=== PATIENT | female | born 1945 | race Caucasian/White ===

== ENCOUNTER 2021-12-03 08:52 | Inpatient (IN) ==
--- NOTE | 2021-12-03 09:01 | Emergency Department Note ---
Lower Extremity Injury HPI General Chief Complaint: Extremity Injury, Lower Stated Complaint: hip pain Time Seen by Provider: 12/03/21 09:01 Source: patient, family ([id number]) and EMS Mode of arrival: EMS Limitations: physical limitation History of Present Illness HPI Narrative: Narrative: 76-year-old female presents emerged department because of a palpable mass in the medial aspect of her proximal thigh on the right side 6 days after having a right total hip surgery. Patient states that this is new. Patient states she had x-ray of her hip approximately 5 days ago and it was unremarkable. Patient rates her pain is a 10 on a 0-to-10 scale. States she received some fentanyl intranasally in the ambulance on the way here and declines any further analgesics at this time. States the pain is constant. Better with opiates. No associated numbness or tingling in the foot. No referred pain to the lower extr emity. Primarily a dull pain. Associated with a mass in the medial aspect of her proximal thigh. MD complaint: hip injury Onset (ago): hour(s) Injury: Right: hip Type of Injury: unknown Place: home Severity: severe Severity scale (1-10): 10 Improves with: nothing Worsens with: movement Context: walking Associated symptoms: Reports swelling Related Data Home Medications Medication Instructions Recorded Confirmed fluoxetine 10 mg tablet 20 mg PO DAILY tab 01/28/19 12/03/21 omega-3 fatty acids 1,000 mg 1,000 mg PO DAILY 01/28/19 12/03/21 capsule (Fish Oil Concentrate) dorzolamide 22.3 mg-timolol 6.8 1 drp OPHTHALMIC (EYE) BID 01/15/21 12/03/21 mg/mL eye drops latanoprost 0.005 % eye drops 1 drp OPHTHALMIC (EYE) HS ml 01/15/21 12/03/21 aspirin 325 mg tablet 81 mg PO Q48H 11/20/21 12/03/21 cholecalciferol (vitamin D3) 50 100 mcg PO DAILY 11/20/21 12/03/21 mcg (2,000 unit) tablet (Vitamin D3) cyanocobalamin (vitamin B-12) 1,000 mcg PO DAILY 11/20/21 12/03/21 1,000 mcg tablet (Vitamin B-12) melatonin 5 mg tablet 15 mg PO HS 11/20/21 12/03/21 zinc sulfate 50 mg zinc (220 mg) 50 mg PO DAILY 11/20/21 12/03/21 tablet Previous Rx's Medication Instructions Recorded hydrocodone 10 mg-acetaminophen 1 - 2 tab PO Q4-6HP PRN #60 tab 11/28/21 325 mg tablet aspirin 81 mg tablet,delayed 81 mg PO BID #60 tab 12/03/21 release (Ecotrin Low Strength) docusate sodium 100 mg capsule 100 mg PO BID #60 cap 12/03/21 hydrocodone 10 mg-acetaminophen 1 - 2 tab PO Q4HP PRN #75 tab 12/03/21 325 mg tablet Allergies Allergy/AdvReac Type Severity Reaction Status Date / Time No Known Drug Allergies Allergy Verified 12/03/21 08:57 Review of Systems ROS ROS Narrative: Narrative: Constitutional: Denies fever Eyes: Reports other (Wears glasses); Denies eye pain ENT ED: Reports rhinorrhea (Chronic); Denies throat pain Cardiovascular: Denies chest pain Respiratory: Denies shortness of breath Gastrointestinal: Reports constipation; Denies abdominal pain Genitourinary: Denies dysuria Musculoskeletal: Denies back pain Integumentary: Denies rash Neurological: Denies headache Hematological/Lymphatic: Reports other (Bruising at the right hip surgical site.) [facility] Narrative Patient History Narrative: Narrative: Medical/Surgical/Family History All Active Problems Post-operative pain (Acute) Hip fracture requiring operative repair (Acute) Chronic kidney disease (CKD) stage G3a/A1, moderately decreased glomerular filtration rate (GFR) between 45-59 mL/min/1.73 square meter and albuminuria creatinine ratio less than 30 mg/g (Chronic) Left wrist pain (Chronic) Blurring of visual image (Chronic) Insomnia (Chronic) Increased frequency of urination (Chronic) Pain of right hip joint (Chronic) Malaise (Chronic) Loss of teeth due to extraction (Chronic) Osteoporosis (Chronic) Fibrosis of lung (Chronic) Depression (Chronic) Fatigue (Chronic) SOB (shortness of breath) (Chronic) Irritability (Chronic) Arthritis of hand (Chronic) Medical History Arthritis of hand began 30 years ago Blurring of visual image Depression Fatigue 01/2016 Fibrosis of lung Gallbladder problem removed History of tobacco use Increased frequency of urination Insomnia Irritability Left wrist pain Loss of teeth due to extraction Malaise Osteoporosis Pain of right hip joint SOB (shortness of breath) Surgical History H/O total hysterectomy with bilateral salpingo-oophorectomy (BSO) at age 38 History of cholecystectomy at age 53 History of hernia repair History of herniorrhaphy at age 5 History of total hysterectomy Family History Sister Breast cancer Diabetes Grandmother Breast cancer Paternal Father Diabetes Social History Smoking Status: Former smoker Alcohol Intake Frequency: holiday/special occasion only Substance Use: does not use Exam Narrative Narrative: Narrative: General Limitations: physical limitation General appearance: Present alert and in distress Head Head: Present atraumatic and normocephalic Eye Eye: Present normal appearance and EOMI Neck Neck: Present normal inspection and trachea midline Respiratory Respiratory: Present normal lung sounds bilaterally; Absent respiratory distress Cardiovascular Cardiovascular: Present regular rate and normal rhythm Adbominal Abdominal: Present soft; Absent tenderness Extremities Extremities: Present other (Right medial proximal thigh with hard mass palpable that was tender. Bruising laterally consistent with the surgery.) Neurological Neurological: Present alert and oriented X3 Psychiatric Psychiatric: Present normal affect and normal mood Skin Skin: Present warm (WNL) and dry Course Vital Signs Vital signs: Vital Signs Pulse Rate 88 12/03/21 08:53 Respiratory Rate 15 12/03/21 08:53 Blood Pressure 172/88 12/03/21 08:53 Pulse Oximetry (%) 99 12/03/21 08:53 Temperature 96.4 F L 12/03/21 22:48 Pulse Rate 84 12/04/21 01:48 Respiratory Rate 16 12/03/21 22:48 Blood Pressure 120/69 12/04/21 01:48 Pulse Oximetry (%) 97 12/04/21 01:48 MDM MDM Narrative Medical decision making narrative: Narrative: Elderly female presents to the emergency department with acute right hip pain and palpable mass 6 days post total hip. Differential diagnosis includes right hip dislocation, right hip fracture, right hip postop hematoma, right hip postop abscess, other. X-ray of the right hip revealed fracture with displacement of the medial proximal fragment. Intertrochanteric fracture. Review of the x-ray from 5 days ago suggests a nondisplaced fracture medial aspect of the femur proximally To me. Surgery was performed by Dr. Collins. Dr. Woody was on-call for Dr. Collins and the case was discussed with him. He determined that the patient required surgery and will take the patient to the operating room later today. Patient will be admitted to the hospital. Covid test was negative. Patient had a normal white count. Hemoglobin was 8.9 which is significantly reduced from the 12.4 hemoglobin preoperatively. Lab Data Result diagrams: 12/03/21 08:40 12/03/21 10:42 Labs: Lab Results 12/03/21 12/03/21 12/03/21 Range/Units 08:40 08:40 08:40 WBC 8.4 (4.5-11.0) K/mcL RBC 2.84 L (3.59-5.38) M/mcL Hgb 8.9 L (11.2-15.7) g/dL Hct 27.4 L (34.1-44.9) % MCV 96.5 (80.0-100.0) fL MCH 31.3 (26.0-34.0) pg MCHC 32.5 (31.0-36.0) g/dL RDW 14.4 (11.5-14.5) % Plt Count 371 (140-440) K/mcL MPV 10.4 (7.4-10.4) fL Neut % (Auto) 74.1 (38.0-78.0) % Lymph % (Auto) 13.5 L (15.5-49.0) % [place] % (Auto) 9.8 (1.0-12.0) % Eos % (Auto) 2.1 (0.0-7.0) % Baso % (Auto) 0.5 (0.0-2.0) % Lymph # (Auto) 1.13 L (1.50-4.80) K/mcL [place] # (Auto) 0.82 (0.10-0.90) K/mcL Eos # (Auto) 0.18 (0.00-0.70) K/mcL Baso # (Auto) 0.04 (0.00-0.30) K/mcL Absolute Neutrophils 6.23 (1.80-8.00) K/mcL PT TNP INR TNP Sodium TNP Potassium TNP Chloride TNP Carbon Dioxide TNP Anion Gap TNP BUN TNP Creatinine TNP GFR Calculation TNP Glucose TNP Calcium TNP Total Bilirubin TNP AST TNP ALT TNP Alkaline Phosphatase TNP Total Protein TNP Albumin TNP Globulin TNP Albumin/Globulin Ratio TNP Urine Color Urine Appearance (Clear) Urine pH (5.0-9.0) Ur Specific [place] (1.000-1.035) Urine Protein (Negative) mg/dL Urine Glucose (UA) (Negative) mg/dL Urine Ketones (Negative) mg/dL Urine Occult Blood (Negative) nannette/mcL Urine Nitrate (Negative) Urine Bilirubin (Negative) mg/dL Urine Urobilinogen mg/dL Ur Leukocyte Esterase (Negative) /uL Urine RBC (0-3) /hpf Urine WBC (0-4) /hpf Ur Squamous Epith Cells (0-4) /hpf Ur Transition Epith Cell (0-2) /hpf Urine Bacteria (0) /hpf Hyaline Casts (0-2) /lph Urine Mucus (None) /hpf Ur Yeast w Hyphae (None) /hpf Ur Culture Indicated? 12/03/21 12/03/21 12/03/21 Range/Units 10:11 10:42 10:42 WBC (4.5-11.0) K/mcL RBC (3.59-5.38) M/mcL Hgb (11.2-15.7) g/dL Hct (34.1-44.9) % MCV (80.0-100.0) fL MCH (26.0-34.0) pg MCHC (31.0-36.0) g/dL RDW (11.5-14.5) % Plt Count (140-440) K/mcL MPV (7.4-10.4) fL Neut % (Auto) (38.0-78.0) % Lymph % (Auto) (15.5-49.0) % Woodford % (Auto) (1.0-12.0) % Eos % (Auto) (0.0-7.0) % Baso % (Auto) (0.0-2.0) % Lymph # (Auto) (1.50-4.80) K/mcL Woodford # (Auto) (0.10-0.90) K/mcL Eos # (Auto) (0.00-0.70) K/mcL Baso # (Auto) (0.00-0.30) K/mcL Absolute Neutrophils (1.80-8.00) K/mcL PT 11.7 L INR 0.8 L Sodium 136 Potassium 4.3 Chloride 103 Carbon Dioxide 22 Anion Gap 11.0 BUN 27 H Creatinine 1.2 H GFR Calculation 44 Glucose 103 Calcium 8.6 Total Bilirubin 0.7 AST 57 H ALT 25 Alkaline Phosphatase 150 H Total Protein 5.9 Albumin 3.0 L Globulin 2.9 Albumin/Globulin Ratio 1.0 Urine Color Yellow Urine Appearance Clear (Clear) Urine pH 5.5 (5.0-9.0) Ur Specific [place] 1.015 (1.000-1.035) Urine Protein Trace A (Negative) mg/dL Urine Glucose (UA) Negative (Negative) mg/dL Urine Ketones Negative (Negative) mg/dL Urine Occult Blood Negative (Negative) nannette/mcL Urine Nitrate Negative (Negative) Urine Bilirubin Negative (Negative) mg/dL Urine Urobilinogen Normal mg/dL Ur Leukocyte Esterase Trace A (Negative) /uL Urine RBC 2 (0-3) /hpf Urine WBC 15 H (0-4) /hpf Ur Squamous Epith Cells 4 (0-4) /hpf Ur Transition Epith Cell 1 (0-2) /hpf Urine Bacteria Few A (0) /hpf Hyaline Casts 3 H (0-2) /lph Urine Mucus Few A (None) /hpf Ur Yeast w Hyphae Few A (None) /hpf Ur Culture Indicated? yes ED POC Tests ED POC Tests: KAYODE - SARS Antigen Negative EKG Data EKG #1: EKG attestation: Yes I reviewed and interpreted this EKG. EKG shows normal: sinus rhythm Rate: normal Rhythm: NSR Irwin/QRS: left axis deviation ST segment elevation in: None ST segment depression in: None Hyperacute T waves: None Interpretation: other (Abnormal EKG) Discharge Plan Patient/Caregiver Discharge Instructions Pt seen by COURT SPECIALIST/PA only: No Clinical Impression: Hip fracture requiring operative repair Qualifiers: Encounter type: initial encounter Fracture type: closed Laterality: right Qualified Code(s): S72.001A - Fracture of unspecified part of neck of right femur, initial encounter for closed fracture Activity: ambulate only with your walker, as per physical therapy and non-weight bearing Patient Disposition: Xfer As Inpt ([facility]) Condition: Fair Discharge Date/Time: 12/03/21 13:12
--- NOTE | 2021-12-03 10:00 | XRay Report ---
CLINICAL INFORMATION: Trauma COMPARISON: 12/10/2016 and 04/22/2016 TECHNIQUE: PA and Lateral views FINDINGS: The heart is mildly enlarged, but unchanged. Mediastinum and pulmonary vessels are normal. Small infiltrate is developed in the right upper lobe. Minor fibrosis in the left lateral lung base is unchanged. IMPRESSION: Small infiltrate right upper lobe. This could indicate pneumonia or posttraumatic contusion Interpreted and Authenticated by: Sergei Trejo 12/03/21
--- NOTE | 2021-12-03 10:04 | XRay Report ---
CLINICAL INFORMATION: Trauma COMPARISON: Postoperative pelvic films 11/28/2021 FINDINGS: There is now an oblique fracture of the right intertrochanteric region extending through the prosthetic femoral stem. The lesser trochanteric fragment is displaced approximately 1 cm medially. The right greater trochanter is displaced superiorly at least 3 cm. The prosthetic acetabulum remains anatomically positioned. Mild degeneration both left hip and SI joints as before. Soft tissue swelling over the right hip. IMPRESSION: Markedly displaced right intertrochanteric fracture extending through the right femoral stem prostheses. Interpreted and Authenticated by: Sergei Trejo 12/03/21
[2021-12-03 10:28] LABS: Basophils # (Auto) 0.04 K/mcL (0.00-0.30); Basophils % (Auto) 0.5 % (0.0-2.0); Eosinophils # (Auto) 0.18 K/mcL (0.00-0.70); Eosinophils % (Auto) 2.1 % (0.0-7.0); Hematocrit 27.4 % (34.1-44.9); Hemoglobin 8.9 g/dL (11.2-15.7); Lymphocytes # (Auto) 1.13 K/mcL (1.50-4.80); Lymphocytes % (Auto) 13.5 % (15.5-49.0); Mean Cell Volume 96.5 fL (80.0-100.0); Mean Corpuscular HGB Conc 32.5 g/dL (31.0-36.0); Mean Platelet Volume 10.4 fL (7.4-10.4); Monocytes # (Auto) 0.82 K/mcL (0.10-0.90); Monocytes % (Auto) 9.8 % (1.0-12.0); Neutrophils % (Auto) 74.1 % (38.0-78.0); Platelet Count 371 K/mcL (140-440); RBC 2.84 M/mcL (3.59-5.38); Red Cell Distribution Width 14.4 % (11.5-14.5); WBC 8.4 K/mcL (4.5-11.0)
[2021-12-03] MEDS ORDERED: HYDROmorphone 0.5 MG/0.5 ML SYRINGE IV ONE (11:08)
[2021-12-03 11:22] LABS: Appearance,Urine Clear (Clear); Bacteria,Urine FEW /hpf (0); Bilirubin,Urine Negative (Negative); Color,Urine Yellow; Culture Indicated,Urine yes; Glucose,Urine (UA) Negative (Negative); Ketones,Urine Negative (Negative); Leukocyte Esterase,Urine Trace /uL (Negative); Mucus,Urine FEW /hpf; Nitrate,Urine Negative (Negative); PH,Urine 5.5 (5.0-9.0); Protein,Urine Trace mg/dL (Negative); Specific Gravity,Urine 1.015 (1.000-1.035); Urine Blood Negative ery/mcL (Negative); Urine Hyaline Cast 3 /lph (0-2); Urine Hyphae Yeast FEW /hpf; Urine RBC 2 /hpf (0-3); Urine Squamous Epithelial Cell 4 /hpf (0-4); Urine Transitional Epi Cells 1 /hpf (0-2); Urine WBC 15 /hpf (0-4); Urobilinogen,Urine Normal
[2021-12-03 11:46] LABS: INR 0.8 (0.9-1.1); Prothrombin Time 11.7 sec (11.9-14.5)
[2021-12-03 11:48] LABS: ALT/SGPT 25 U/L (<40); AST/SGOT 57 U/L (<32); Alkaline Phosphatase 150 U/L (39-117); Bilirubin,Total 0.7 mg/dL (0.1-1.0); Blood Urea Nitrogen 27 mg/dL (8-23); Calcium 8.6 mg/dL (8.6-10.4); Carbon Dioxide 22 mmol/L (22-30); Chloride 103 mmol/L (96-108); Globulin 2.9 gm/dL (2.2-3.7); Glomerular Filtration Rate 44; Glucose 103 mg/dL (70-105)
[2021-12-03] MEDS ORDERED: ONDANSETRON 4 MG/2 ML VIAL IV PRN ×5 (12:33→21:43)
[2021-12-03] MEDS ORDERED: HYDROmorphone 0.5 MG/0.5 ML SYRINGE IV PRN ×3 (12:38→20:11)
[2021-12-03] MEDS ORDERED: HYDROmorphone 0.5 MG/0.5 ML SYRINGE ONE (13:28)
[2021-12-03] MEDS ORDERED: 0.9 % SODIUM CHLORIDE 10 ML SYRINGE IV SCH (14:00)
[2021-12-03] MEDS ORDERED: ceFAZolin 2 GM in DEXTROSE 5% IN WATER 50 ML IV SCH (16:30)
[2021-12-03] MEDS ORDERED: ONDANSETRON 4 MG/2 ML VIAL ONE (19:40)
[2021-12-03] MEDS ORDERED: GLYCOPYRROLATE 0.2 MG/ML VIAL IV ONE (19:40)
[2021-12-03] MEDS ORDERED: MAGNESIUM SULFATE 2 GM/50 ML BAG IV ONE (19:40)
[2021-12-03] MEDS ORDERED: TRANEXAMIC ACID 1,000 MG/10 ML VIAL ONE (19:40)
[2021-12-03] MEDS ORDERED: LIDOCAINE HCL/PF 100 MG/5 ML SYRINGE IV ONE (19:40)
[2021-12-03] MEDS ORDERED: DEXAMETHASONE 10 MG/ML VIAL ONE (19:40)
[2021-12-03] MEDS ORDERED: PROPOFOL 200 MG/20 ML VIAL IV ONE (19:40)
[2021-12-03] MEDS ORDERED: PHENYLephrine 1 MG/10 ML SYRINGE (ANEST) ONE (19:40)
[2021-12-03] MEDS ORDERED: ePHEDrine 50 MG/5 ML SYRINGE (ANEST) IV ONE (19:40)
[2021-12-03] MEDS ORDERED: KETAMINE 50 MG/ML Syringe (ANEST) IV ONE (19:40)
[2021-12-03] MEDS ORDERED: ACETAMINOPHEN 1,000 MG/100 ML BAG IV ONE (20:11)
[2021-12-03] MEDS ORDERED: fentaNYL 100 MCG/2 ML VIAL IV PRN (20:11)
[2021-12-03] MEDS ORDERED: BENZOCAINE/MENTHOL 1 LOZENGE PO PRN ×2 (20:11→21:43)
[2021-12-03] MEDS ORDERED: LACTATED RINGERS 250 ML IV PRN (20:11)
[2021-12-03] MEDS ORDERED: LABETALOL 5 MG/ML ML IV PRN (20:11)
[2021-12-03] MEDS ORDERED: METHOCARBAMOL 1,000 MG/10 ML VIAL IV PRN (20:11)
[2021-12-03] MEDS ORDERED: IPRATROPIUM/ALBUTEROL 3 ML AMPUL.NEB NEB PRN (20:11)
[2021-12-03] MEDS ORDERED: METOPROLOL TARTRATE 5 MG/5 ML VIAL IV PRN (20:11)
[2021-12-03] MEDS ORDERED: LACTATED RINGERS 1,000 ML IV SCH (20:15)
[2021-12-03] MEDS ORDERED: DOCUSATE SODIUM 100 MG CAPSULE PO SCH (21:00)
[2021-12-03] MEDS ORDERED: GENTAMICIN SULFATE 800 MG/20 ML VIAL IR ONE (21:00)
[2021-12-03] MEDS ORDERED: SENNOSIDES 1 TABLET PO SCH (21:00)
--- NOTE | 2021-12-03 21:40 | Brief Operative Note ---
Brief Operative Note Date of procedure: 12/03/21 Pre-op diagnosis: Right hip periprosthetic fx Post-op diagnosis: same Procedure: Right hip orif periprosthetic fx and revision of femoral stem Grafts/Implants: Yes Anesthesia: GETA Complications: none Surgeon: Ishaan Craft Punch Finisher: Jeremi Vital Estimated blood loss (cc): 98 Specimens Removed/Pathology: none sent Condition: stable Disposition: PACU
[2021-12-03] MEDS ORDERED: ACETAMINOPHEN 325 MG TABLET PO PRN (21:43)
[2021-12-03] MEDS ORDERED: HYDROmorphone 1 MG/ML SYRINGE IV PRN (21:43)
[2021-12-03] MEDS ORDERED: TEMAZEPAM 15 MG CAPSULE PO PRN (21:43)
[2021-12-03] MEDS ORDERED: TRANEXAMIC ACID 1,000 MG/10 ML VIAL IV ONE (21:43)
[2021-12-03] MEDS ORDERED: FLEETS ADULT ENEMA PR PRN (21:43)
[2021-12-03] MEDS ORDERED: POLYETHYLENE GLYCOL 3350 17 GM PACKET PO PRN (21:43)
[2021-12-03] MEDS ORDERED: BISACODYL 10 MG SUPP.RECT PR PRN (21:43)
--- NOTE | 2021-12-03 21:52 | Discharge Plan ---
Discharge Instructions - [facility] Patient Instructions Total Hip Protocol: Follow activity instructions as provided by Physical Therapy. Discharge Plan Patient/Caregiver Discharge Instructions Activity: ambulate only with your walker, as per physical therapy and non-weight bearing Diet: Regular Diet Activity Restrictions/Additional Instructions: Admission to the hospital for surgery by Dr. Woody later today Prescriptions: New hydrocodone-acetaminophen 10-325 mg Tablet 1 - 2 tab PO Q4HP PRN (Reason: Per Pain Protocol) Qty: 75 0RF docusate sodium 100 mg Capsule 100 mg PO BID Qty: 60 0RF aspirin [Ecotrin Low Strength] 81 mg tablet,delayed release (DR/EC) 81 mg PO BID Qty: 60 0RF No Action dorzolamide-timolol 22.3-6.8 mg/mL drops 1 drp ophthalmic (eye) BID 0RF Label Comments: BOTH EYES latanoprost 0.005 % drops 1 drp ophthalmic (eye) HS 0RF Label Comments: BOTH EYES fluoxetine 10 mg tablet 20 mg PO DAILY 0RF omega-3 fatty acids [Fish Oil Concentrate] 1,000 mg capsule 1,000 mg PO DAILY 0RF Label Comments: HOLDING FOR SURGERY cyanocobalamin (vitamin B-12) [Vitamin B-12] 1,000 mcg Tablet 1,000 mcg PO DAILY 0RF zinc sulfate 50 mg zinc (220 mg) Tablet 50 mg PO DAILY 0RF melatonin 5 mg Tablet 15 mg PO HS 0RF cholecalciferol (vitamin D3) [Vitamin D3] 50 mcg (2,000 unit) Tablet 100 mcg PO DAILY 0RF aspirin 325 mg Tablet 81 mg PO Q48H 0RF Label Comments: HOLDING FOR SURGERY hydrocodone-acetaminophen 10-325 mg tablet 1 - 2 tab PO Q4-6HP PRN (Reason: pain) Qty: 60 0RF Other Ambulatory Orders: Physical Therapy DC - [facility] (Routine) Location: None Selected Ordered By: Jeremi Vital Toilet Riser Discharge Order (ONCE) Location: None Selected Ordered By: Jeremi Vital Walker (ONCE) Location: None Selected Ordered By: Jeremi Vital Follow Up Plan Follow up with: Chaitanya Mckeon ARNP [Primary Care Provider] - Jeremi Vital PA-C [Physician Director Environmental] - Patient Disposition: Xfer SNF Prognosis: Fair Rehab Potential: Good I certify that the patient requires SNF services: Yes Overall status at discharge: patient is not back to baseline Discharge Orders: Discharge Order (Routine); Ordered 12/04/21 Ordered By: Jeremi Vital
[2021-12-03] MEDS ORDERED: METHOCARBAMOL 1,000 MG/10 ML VIAL IV ONE (22:13)
[2021-12-03] MEDS: 0.9 % SODIUM CHLORIDE 10 ML SYRINGE IV SCH ×2 (23:07→23:16)
[2021-12-03] MEDS: LACTATED RINGERS 1,000 ML IV SCH (23:20)
[2021-12-04] MEDS ORDERED: ceFAZolin 1 GM VIAL IV SCH
--- NOTE | 2021-12-04 03:40 | XRay Report ---
CLINICAL INFORMATION: ORIF subtrochanteric fracture COMPARISON: Preoperative film 12/03/2021. FINDINGS: Oblique subtrochanteric fracture has been reduced anatomic alignment now supported by cerclage wires. Total right hip prostheses remains anatomically aligned without loosening or infection. Left hip and both SI joints show minimal degeneration.. IMPRESSION: ORIF subtrochanteric fracture right hip in anatomic alignment Interpreted and Authenticated by: Sergei Trejo 12/04/21
--- NOTE | 2021-12-04 03:47 | XRay Report ---
CLINICAL INFORMATION: ORIF subtrochanteric fracture COMPARISON: Preoperative film 12/03/2021. FINDINGS: Oblique subtrochanteric fracture is under process of reduction total right hip prostheses remains anatomically aligned without loosening or infection. Left hip and both SI joints show minimal degeneration.. IMPRESSION: ORIF subtrochanteric fracture right hip under process of reduction with cerclage wire stabilization Interpreted and Authenticated by: Sergei Trejo 12/04/21
[2021-12-04] MEDS: 0.9 % SODIUM CHLORIDE 10 ML SYRINGE IV SCH ×3 (05:55→21:22)
[2021-12-04] MEDS ORDERED: CEPHALEXIN 250 MG CAPSULE PO ONE (07:02)
--- NOTE | 2021-12-04 07:08 | Consultation ---
DATE OF CONSULTATION: 12/03/2021 IDENTIFICATION: This is a pleasant 76-year-old female. ADMITTING DIAGNOSIS: Right hip pain. HISTORY OF PRESENT ILLNESS: This patient recently had total joint arthroplasty from an anterior approach by Dr. Flo Collins about 1 week ago. She reports that she never really felt great following surgery and definitely had a slower start to her rehabilitation progress and ended up going to [facility] She ended up taking a fall today at the facility with extreme pain, was transported via EMS to [facility]. REVIEW OF SYSTEMS: She denies any head trauma or head injury, headaches, vision changes, fever, sweats, chills, chest pain, syncope, shortness of breath, abdominal pain, nausea, vomiting, diarrhea. Other than the musculoskeletal symptoms, a 10-point review of systems otherwise negative. PAST MEDICAL HISTORY: Includes chronic kidney disease with stage G3a/A1 with a decreased GFR. The patient had chronic left wrist pain, visual problems, insomnia, frequency of urination, chronic hip pain, malaise. She has had tooth extraction, osteoporosis, chronic fibrosis of the lung, depression, fatigue, shortness of breath, irritability, and osteoarthritis of the hand. PAST SURGICAL HISTORY: The patient's surgical history demonstrates a total abdominal hysterectomy with BSO at age 38, cholecystectomy at age 53, hernia repair and herniorrhaphy at age 5, and total hysterectomy. FAMILY HISTORY: Sister with breast cancer and diabetes. Grandmother, breast cancer on the paternal side. Father with diabetes. SOCIAL HISTORY: Prior smoker. Occasional alcohol use for special occasions and holidays. Does not use illicit drugs. PHYSICAL EXAMINATION VITAL SIGNS: Recent vital signs include a pulse of 88, respirations 15, blood pressure 172/88, pulse oximetry 99% on room air. HEENT: Head was normocephalic. GENERAL: Patient is awake, alert and oriented x 3, appeared to be comfortably on exam. CHEST: Clear to auscultation. No wheezing, rhonchi or rales. HEART: Normal sinus rhythm. No gallops, rubs or murmurs. ABDOMEN: Soft and nontender. MUSCULOSKELETAL: Inspection revealed a right externally rotated leg and pretty severe discomfort. She did not want to mobilize whatsoever on exam due to pain. She had intact dorsiflexor, plantar flexors, and EHLs, and was neurovascularly stable distally with a pink, warm foot. IMAGING REVIEW: Both myself and Dr. Craft reviewed radiographs that demonstrated a significantly displaced periprosthetic femur fracture that involves the calcar with displacement of the lesser trochanter and superiorly migrated greater trochanter. ASSESSMENT: Right hip periprosthetic fracture 1 week out from total hip arthroplasty by Dr. Collins. PLAN: We recommend a right total hip revision with gnosticism modular implant that will be a press-fit. The benefits, risks, and alternatives were discussed with the patient and her [id number] today that can include, but are not necessarily limited to complications with anesthesia, heart attack, stroke, and even with blood loss with a risk of blood transfusion, secondary acquisition of HIV, hepatitis or AIDS; injury to adjacent blood vessels or nerves, that could result in chronic pain or paresthesias, future multiple surgeries secondary to infection and long-term IV antibiotics. While these are not all inclusive, they were discussed with the patient and her family. She will also likely have a period of immobility following surgery with only toe touch weightbearing, likely for the first couple of weeks as safety precautions and will likely [facility] following surgery today. BAP:soraya Job ID: [id number] Doc ID: [id number] KHANH Cole MD
--- NOTE | 2021-12-04 07:09 | Orthopedic Progress Note ---
SUBJECTIVE Subjective Patient information: Note initiated : 12/04/21 at 7:08 am Service Date, if different from initiated Date: [] Patient: Bianka Peterson 76 y/o F admitted on 12/03/21 for hip pain. Chief Complaint: [] Principal diagnosis: right femur fx orif and replace hip stem Constitutional Vitals: Vital Signs Temp Pulse Resp BP Pulse Ox 97.0 F 98 H 16 139/86 99 12/04/21 03:50 12/04/21 03:50 12/04/21 03:50 12/04/21 03:50 12/04/21 03:50 Period Temp Pulse Resp BP Sys/Ortiz Pulse Ox Last 24 Hr 96.4 F-98 F 74-103 14-21 96-173/69-92 93-100 Intake and Output 12/03/21 12/04/21 12/04/21 21:59 05:59 13:59 Intake Total 1850 100 Output Total 1230 1050 Balance 620 -950 Weight 152 lb Intake & Output: Intake & Output 12/03/21 12/04/21 12/04/21 21:59 05:59 13:59 Intake Total 1850 100 Output Total 1230 1050 Balance 620 -950 Weight 152 lb Intake: IV 50 100 Ancef 2 gm In Dextrose 5% in 50 Water 50 ml @ 100 mls/hr IV PREOP FELIPE Rx#:[id number] Oral 0 IV - Manual Only 1800 Output: Urine Catheter Amount 1030 1050 Void Amount 100 Estimated Blood Loss 100 Other: Urine Appearance Clear Clear Uretheral (Rojas) Clear Clear Urine Color Bright Yellow Bright Yellow Uretheral (Rojas) Dark Yellow Dark Yellow # Voids 2 Respiratory Respiratory exam: Present normal respiratory exam Extremities Exam Extremities exam: Present joint swelling, normal capillary refill, Foot pink and warm and neurovascular intact Psychiatric Psychiatric exam: Present normal affect OBJ DATA Labs CBC & Chem 7: 12/04/21 05:34 12/03/21 10:42 Labs: Abnormal Lab Results 12/04/21 12/03/21 12/03/21 05:34 10:42 10:42 RBC Hgb Hct 24.6 L Lymph % (Auto) Lymph # (Auto) PT 11.7 L INR 0.8 L BUN 27 H Creatinine 1.2 H AST 57 H Alkaline Phosphatase 150 H Albumin 3.0 L Urine Protein Ur Leukocyte Esterase Urine WBC Urine Bacteria Hyaline Casts Urine Mucus Ur Yeast w Hyphae 12/03/21 12/03/21 10:11 08:40 RBC 2.84 L Hgb 8.9 L Hct 27.4 L Lymph % (Auto) 13.5 L Lymph # (Auto) 1.13 L PT INR BUN Creatinine AST Alkaline Phosphatase Albumin Urine Protein Trace A Ur Leukocyte Esterase Trace A Urine WBC 15 H Urine Bacteria Few A Hyaline Casts 3 H Urine Mucus Few A Ur Yeast w Hyphae Few A Meds: Medications Acetaminophen (Acetaminophen 325 Mg Tablet) 650 mg PO Q6HP PRN; Protocol PRN Reason: Per Pain Protocol/Fever > 101 Hydrocodone Bitart/Acetaminophen (Hydrocodone/Apap 10/325mg Tablet) 1 - 2 tab PO Q4HP PRN; Protocol PRN Reason: Per Pain Protocol Bisacodyl (Bisacodyl 10 Mg Supp.Rect) 10 mg [place] Q2-3DAYS PRN PRN Reason: Constipation Docusate Sodium (Docusate Sodium 100 Mg Capsule) 100 mg PO BID [facility] Hydromorphone HCl (Hydromorphone 1 Mg/Ml Syringe) 0.5 - 2 mg IV Q2HP PRN; Protocol PRN Reason: Per Pain Protocol Last Admin: 12/03/21 23:17 Dose: 1 mg Documented by: Lactated Ringer's (Lactated Ringers) 1,000 mls @ 100 mls/hr IV .Q10H [facility] Last Admin: 12/03/21 23:20 Dose: 100 mls/hr Documented by: Magnesium Hydroxide (Magnesium Hydroxide 30 Ml Oral.Susp) 30 ml PO BIDP PRN PRN Reason: Constipation Ondansetron HCl (Ondansetron 4 Mg/2 Ml Vial) 4 mg IV Q4HP PRN; Protocol PRN Reason: Nausea And Vomiting Polyethylene Glycol (Polyethylene Glycol 3350 17 Gm Packet) 17 gm PO DAILYP PRN PRN Reason: Constipation Senna (Sennosides 1 Tablet) 2 tab PO HS [facility] Sodium Biphosphate/Sodium Phosphate (Fleets Adult Enema) 1 dose [place] Q3-4DAYS PRN PRN Reason: Constipation Sodium Chloride (0.9 % Sodium Chloride 10 Ml Syringe) 10 ml IV Q8 [facility] Last Admin: 12/04/21 05:55 Dose: Not Given Documented by: Temazepam (Temazepam 15 Mg Capsule) 15 mg PO HSP PRN PRN Reason: Insomnia Throat Lozenges (Benzocaine/Menthol 1 Lozenge) 1 lozenge PO PRN PRN PRN Reason: Sore Throat Last Admin: 12/03/21 23:21 Dose: 1 lozenge Documented by: A/P Time Spent With Patient Time: Total time spent is greater than 50% in coordination of care (as documented) at patient's floor/unit and/or counseling patient: Total time spent with greater than 50% in coordination of care (as documented) at patient's floor/unit and/or counseling patient:: less than 15 minutes
[2021-12-04] MEDS: LACTATED RINGERS 1,000 ML IV SCH ×2 (07:50→16:53)
[2021-12-04] MEDS: DOCUSATE SODIUM 100 MG CAPSULE PO SCH ×2 (08:43→21:26)
[2021-12-04] MEDS: HYDROcodone/APAP 10/325MG TABLET PO PRN ×4 (08:43→21:29)
--- NOTE | 2021-12-04 09:49 | Operative Note ---
DATE OF OPERATION: 12/03/2021 PREOPERATIVE DIAGNOSIS: Periprosthetic femur fracture, 3-part. POSTOPERATIVE DIAGNOSIS: Periprosthetic femur fracture, 3-part. PROCEDURE: Right hip open reduction and internal fixation of a periprosthetic fracture with revision of the femoral stem. SURGEON: Ishaan Craft M.D. CORRECTIONAL COUNSELOR: Jeremi Vital PA-C. The PA's assistance was required for the safe and efficient completion of the entire case. This provider's expertise and technical skill were required throughout the case. The PA assisted with preoperative coordination, intraoperative retraction, wound closure, dressing and splint application, as well as postoperative documentation and care coordination. ANESTHESIA: General LMA anesthesia. COMPLICATIONS: None. ESTIMATED BLOOD LOSS: 100 mL. IMPLANTS: Two cables on the lesser trochanter as well as an 18 mm Episcopal Modular stem with a 20 mm proximal porous ingrowth body with a 36 mm femoral head with +2.5 mm neck length. DESCRIPTION OF PROCEDURE: The patient was brought to the operating room, put to sleep with general LMA anesthesia. Once asleep, the patient had the right hip sterilely prepped and draped in the usual sterile fashion. We made a superior approach, extended laterally to identify the fracture. We placed a Charnley retractor after a timeout had been performed and removed the femoral stem as it had been impacted distally about 3 inches. Once done, we identified the lesser trochanter and temporary cables were placed. We then reamed up to the canal to a size 18. The 18 fit very nicely and then we placed the trials with a 30 mm proximal body. This was too long. We then placed a +20 mm proximal body. Once this was done, we were able to then trial a neutral neck length and a +5. We took x-rays with a +5 neck length in. This seemed to show the neck too long and the lesser trochanter was inadequately reduced. We then repositioned the cables, took one more x-ray with a neutral neck length. This showed equal leg lengths. We then irrigated thoroughly. We placed the final 20 mm proximal body, which was tightened and screwed into place in 15 degrees of anteversion. We then repositioned the lesser trochanter and finished cabling this on and tensioned the cables at 50 pounds of pressure. Cables were cut to length and then we trialed the neutral and a +2.5. The 0 neck length impinged and actually dislocated about 60 to 70 degrees with internal rotation. With a +2.5, though it slightly lengthened her and increased offset, it was much more stable achieving full motion. We irrigated thoroughly and then closed the capsule with #2 Ethibond, closed the fascial layer with #1 Stratafix, closed the skin with Stratafix and adhesive closure. Because of the tightness the IT band, I did lengthen the IT band by placing a second incision distally, a 1-inch incision. I then Z-lengthened the IT band to relieve the tension of the IT band. We irrigated thoroughly and closed the distal wound with 2-0 Vicryl and adhesive closure. The patient tolerated this well. There was no complication. Sterile bandage was applied. RBH:beto Job ID: [id number] Doc ID: [id number] Ishaan Craft MD
[2021-12-04] MEDS: METHOCARBAMOL 750 MG TABLET PO PRN ×2 (10:14→16:58)
[2021-12-04] MEDS ORDERED: ONDANSETRON 4 MG ODT TABLET SL PRN (12:30)
[2021-12-04] MEDS: MAGNESIUM HYDROXIDE 30 ML ORAL.SUSP PO PRN (14:52)
[2021-12-04] MEDS ORDERED: SENNOSIDES 1 TABLET PO SCH (21:00)
[2021-12-05] MEDS: HYDROcodone/APAP 10/325MG TABLET PO PRN ×2 (02:05→09:00)
--- NOTE | 2021-12-05 07:34 | Orthopedic Progress Note ---
SUBJECTIVE Subjective Patient information: Note initiated : 12/05/21 at 7:32 am Service Date, if different from initiated Date: [] Patient: Bianka Peterson 76 y/o F admitted on 12/03/21 for hip pain. Chief Complaint: [Less pain but no BM yet and can weight bear with minimal pain] Principal diagnosis: right femur fx orif and replace hip stem Constitutional Vitals: Vital Signs Temp Pulse Resp BP Pulse Ox 96.9 F L 103 H 12 99/54 90 12/05/21 07:27 12/05/21 07:27 12/05/21 07:27 12/05/21 07:27 12/05/21 07:27 Period Temp Pulse Resp BP Sys/Ortiz Pulse Ox Last 24 Hr 96.8 F-98.8 F 86-103 12-20 99-145/54-84 90-100 Intake and Output 12/04/21 12/05/21 12/05/21 21:59 05:59 13:59 Intake Total 220 Output Total 450 Balance -450 220 Weight 153 lb 4.8 oz 147 lb 1.6 oz Intake & Output: Intake & Output 12/04/21 12/05/21 12/05/21 21:59 05:59 13:59 Intake Total 220 Output Total 450 Balance -450 220 Weight 153 lb 4.8 oz 147 lb 1.6 oz Intake: Oral 220 Output: Void Amount 450 Other: Meal Dinner Percent of Meal Consumed 30% Feeding Ability Independent Urine Appearance Clear Clear Urine Color Light Aretha Bright Yellow Urine Odor Normal Stool Size Small Small Stool Color Brown Brown Stool Consistency Dry and Hard Dry and Hard Irma Irma # Bowel Movements 1 1 Extremities Exam Extremities exam: Present joint swelling, pedal edema, Foot pink and warm and neurovascular intact OBJ DATA Labs CBC & Chem 7: 12/04/21 05:34 12/03/21 10:42 Labs: Abnormal Lab Results 12/04/21 12/03/21 12/03/21 05:34 10:42 10:42 RBC Hgb Hct 24.6 L Lymph % (Auto) Lymph # (Auto) PT 11.7 L INR 0.8 L BUN 27 H Creatinine 1.2 H AST 57 H Alkaline Phosphatase 150 H Albumin 3.0 L Urine Protein Ur Leukocyte Esterase Urine WBC Urine Bacteria Hyaline Casts Urine Mucus Ur Yeast w Hyphae 12/03/21 12/03/21 10:11 08:40 RBC 2.84 L Hgb 8.9 L Hct 27.4 L Lymph % (Auto) 13.5 L Lymph # (Auto) 1.13 L PT INR BUN Creatinine AST Alkaline Phosphatase Albumin Urine Protein Trace A Ur Leukocyte Esterase Trace A Urine WBC 15 H Urine Bacteria Few A Hyaline Casts 3 H Urine Mucus Few A Ur Yeast w Hyphae Few A Meds: Medications Acetaminophen (Acetaminophen 325 Mg Tablet) 650 mg PO Q6HP PRN; Protocol PRN Reason: Per Pain Protocol/Fever > 101 Hydrocodone Bitart/Acetaminophen (Hydrocodone/Apap 10/325mg Tablet) 1 - 2 tab PO Q4HP PRN; Protocol PRN Reason: Per Pain Protocol Last Admin: 12/05/21 02:05 Dose: 2 tab Documented by: Bisacodyl (Bisacodyl 10 Mg Supp.Rect) 10 mg ME Q2-3DAYS PRN PRN Reason: Constipation Docusate Sodium (Docusate Sodium 100 Mg Capsule) 100 mg PO BID [facility] Last Admin: 12/04/21 21:26 Dose: 100 mg Documented by: Hydromorphone HCl (Hydromorphone 1 Mg/Ml Syringe) 0.5 - 2 mg IV Q2HP PRN; Protocol PRN Reason: Per Pain Protocol Last Admin: 12/03/21 23:17 Dose: 1 mg Documented by: Magnesium Hydroxide (Magnesium Hydroxide 30 Ml Oral.Susp) 30 ml PO BIDP PRN PRN Reason: Constipation Last Admin: 12/04/21 14:52 Dose: 30 ml Documented by: Methocarbamol (Methocarbamol 750 Mg Tablet) 750 mg PO Q6HP PRN PRN Reason: Muscle Spasm Last Admin: 12/04/21 16:58 Dose: 750 mg Documented by: Ondansetron HCl (Ondansetron 4 Mg/2 Ml Vial) 4 mg IV Q4HP PRN; Protocol PRN Reason: Nausea And Vomiting Ondansetron HCl (Ondansetron 4 Mg Odt Tablet) 4 mg SL Q4HP PRN PRN Reason: Nausea And Vomiting Polyethylene Glycol (Polyethylene Glycol 3350 17 Gm Packet) 17 gm PO DAILYP PRN PRN Reason: Constipation Last Admin: 12/04/21 08:43 Dose: 17 gm Documented by: Senna (Sennosides 1 Tablet) 2 tab PO [facility] Last Admin: 12/04/21 21:26 Dose: 2 tab Documented by: Sodium Biphosphate/Sodium Phosphate (Fleets Adult Enema) 1 dose ME Q3-4DAYS PRN PRN Reason: Constipation Temazepam (Temazepam 15 Mg Capsule) 15 mg PO HSP PRN PRN Reason: Insomnia Throat Lozenges (Benzocaine/Menthol 1 Lozenge) 1 lozenge PO PRN PRN PRN Reason: Sore Throat Last Admin: 12/03/21 23:21 Dose: 1 lozenge Documented by: A/P Narrative A/P Narrative: may dc today Time Spent With Patient Time: Total time spent is greater than 50% in coordination of care (as documented) at patient's floor/unit and/or counseling patient: Total time spent with greater than 50% in coordination of care (as documented) at patient's floor/unit and/or counseling patient:: less than 15 minutes
[2021-12-05] MEDS: MAGNESIUM HYDROXIDE 30 ML ORAL.SUSP PO PRN (08:58)
[2021-12-05] MEDS: DOCUSATE SODIUM 100 MG CAPSULE PO SCH (08:58)
--- NOTE | 2021-12-05 09:15 | EKG ---
[facility] Test Date: 2021-12-03 Pat Name: Bianka Peterson Department: ED Room: Gender: Female Program Attendant: sb : 1945 Requested By: Kev Gil Order Number: [id number] Reading MD: Fredy Salas Measurements Intervals [place] Rate: 83 P: 76 [place]: 193 QRS: -44 QRSD: 94 T: 3 QT: 377 QTc: 443 Interpretive Statements Sinus rhythm Left anterior fascicular block Low voltage, precordial leads RSR' in V1 or V2, right VCD or RVH Abnormal T, consider ischemia, anterior leads Electronically Signed On 12-05-2021 9:15:11 PST by Fredy Salas /store/M0/[id number]/[id number].pdf
[2021-12-05] MEDS: METHOCARBAMOL 750 MG TABLET PO PRN (09:19)
== END 2021-12-05 12:10 | DRG 466 ==
LOC: ED 08:52 → MEDSUR 13:06 → ED 13:12
PROVIDERS: ADMIT Orthopaedic Surgery; ATTEND Orthopaedic Surgery

== ENCOUNTER 2022-01-05 12:54 | Inpatient (IN) ==
[2022-01-05] MEDS ORDERED: IOPAMIDOL 100 ML BOTTLE IV ONE (12:55)
[2022-01-05 13:29] LABS: POC Blood Urea Nitrogen 16 mg/dL (6-20); POC CO2 26 mmol/L (22-30); POC Calcium, Ionized 1.21 mmEq/L (1.16-1.32); POC Chloride 99 mEq/L (96-108); POC Creatinine 0.7 mg/dL (0.6-1.2); POC Glucose, Random 118 mg/dL (70-105); POC Hematocrit 27 % (36-48); POC Potassium 3.7 mEql/L (3.3-5.1); POC Sodium 136 mEq/L (133-145)
[2022-01-05 13:47] LABS: Basophils # (Auto) 0.06 K/mcL (0.00-0.30); Basophils % (Auto) 0.5 % (0.0-2.0); Eosinophils # (Auto) 0.06 K/mcL (0.00-0.70); Eosinophils % (Auto) 0.5 % (0.0-7.0); Hematocrit 24.4 % (34.1-44.9); Hemoglobin 7.6 g/dL (11.2-15.7); Lymphocytes # (Auto) 1.16 K/mcL (1.50-4.80); Lymphocytes % (Auto) 8.7 % (15.5-49.0); Mean Cell Volume 90.4 fL (80.0-100.0); Mean Corpuscular HGB Conc 31.1 g/dL (31.0-36.0); Mean Platelet Volume 9.4 fL (7.4-10.4); Monocytes % (Auto) 9.8 % (1.0-12.0); Neutrophils % (Auto) 80.5 % (38.0-78.0); Platelet Count 599 K/mcL (140-440); Red Cell Distribution Width 17.9 % (11.5-14.5); WBC 13.3 K/mcL (4.5-11.0)
--- NOTE | 2022-01-05 13:47 | Emergency Department Note ---
HPI General Chief complaint: Shortness of Breath/Dyspnea Stated complaint: SOB Time Seen by Provider: 01/05/22 13:07 Source: patient and EMS Mode of arrival: EMS History of Present Illness HPI Narrative: Patient is a 76-year-old lady who arrives the emergency department by ambulance accompanied by her [id number] and her son complaining of shortness of breath. Patient says she has been feeling short of breath since Thursday. This was gradual in onset has been progressively worsening. She had a CT scan performed of her lungs on January 02 which revealed multifocal pneumonia. She was informed of the test results today. Because of this and the fact that she has been feeling more short of breath today, [facility] staff sent her to the emergency department for further evaluation. The patient has been having increasing swelling in bilateral legs for the past 2 days. She has also been refusing her diuretics for the past 2 days because they make her urinate frequently. She does have an associated sore throat. She denies any associated fever or chills. She has had poor appetite and nausea limiting her oral intake for the past few days. Related Data Home Medications Medication Instructions Recorded Confirmed cholecalciferol (vitamin D3) 50 100 mcg PO DAILY 11/20/21 01/05/22 mcg (2,000 unit) tablet (Vitamin D3) cyanocobalamin (vitamin B-12) 1,000 mcg PO DAILY 11/20/21 01/05/22 1,000 mcg tablet (Vitamin B-12) melatonin 5 mg tablet 15 mg PO HS 11/20/21 12/03/21 zinc sulfate 50 mg zinc (220 mg) 50 mg PO DAILY 11/20/21 01/05/22 tablet furosemide 20 mg tablet (Lasix) 20 mg PO QDAY 01/05/22 01/05/22 methocarbamol 750 mg tablet 750 mg PO Q8H 01/05/22 01/05/22 ondansetron 4 mg disintegrating 4 mg TRANSLINGUAL Q6 PRN 01/05/22 01/05/22 tablet polyethylene glycol 3350 17 17 g PO QDAY 01/05/22 01/05/22 gram/dose oral powder (Miralax) potassium chloride 10 mEq 10 meq PO [facility] 01/05/22 01/05/22 capsule,extended release prednisone 20 mg tablet 20 mg PO [facility] 01/05/22 01/05/22 Previous Rx's Medication Instructions Recorded hydrocodone 10 mg-acetaminophen 1 - 2 tab PO Q4-6HP PRN #60 tab 11/28/21 325 mg tablet Allergies Allergy/AdvReac Type Severity Reaction Status Date / Time No Known Drug Allergies Allergy Verified 12/03/21 08:57 Review of Systems ROS ROS Narrative: Narrative: All systems ED: reviewed and negative except as stated. Constitutional: Denies fever or chills Gastrointestinal: Denies abdominal pain PFSH Narrative Patient History Narrative: Narrative: Medical/Surgical/Family History All Active Problems (Updated 01/05/22 @ 17:05 by Omar Sadler DO) Post-operative pain (Acute) Hip fracture requiring operative repair (Acute) Acute pain of right hip (Acute) Left-sided epistaxis (Acute) Acute hypoxemic respiratory failure (Acute) Congestive heart failure (Acute) Pneumonia (Acute) Chronic kidney disease (CKD) stage G3a/A1, moderately decreased glomerular filtration rate (GFR) between 45-59 mL/min/1.73 square meter and albuminuria creatinine ratio less than 30 mg/g (Chronic) Left wrist pain (Chronic) Blurring of visual image (Chronic) Insomnia (Chronic) Increased frequency of urination (Chronic) Pain of right hip joint (Chronic) Malaise (Chronic) Loss of teeth due to extraction (Chronic) Osteoporosis (Chronic) Fibrosis of lung (Chronic) Depression (Chronic) Fatigue (Chronic) SOB (shortness of breath) (Chronic) Irritability (Chronic) Arthritis of hand (Chronic) Medical History Arthritis of hand began 30 years ago Blurring of visual image Depression Fatigue 01/2016 Fibrosis of lung Gallbladder problem removed History of tobacco use Increased frequency of urination Insomnia Irritability Left wrist pain Loss of teeth due to extraction Malaise Osteoporosis Pain of right hip joint SOB (shortness of breath) Surgical History H/O total hysterectomy with bilateral salpingo-oophorectomy (BSO) at age 38 History of cholecystectomy at age 53 History of hernia repair History of herniorrhaphy at age 5 History of total hysterectomy Family History Sister Breast cancer Diabetes Grandmother Breast cancer Paternal Father Diabetes Social History Smoking Status: Former smoker Alcohol Intake Frequency: holiday/special occasion only Substance Use: does not use Exam Narrative Narrative: I reviewed the vital signs. Gen -patient is awake and alert and in no acute distress. The patient is well groomed. HEENT -head is atraumatic. There is no conjunctival pallor or scleral icterus. Mucous membranes are dry. There are a few fresh clots on the right anterior nasal septum without any active hemorrhage CV -S1-S2 regular rate and rhythm. Peripheral pulses are palpable. There is no JVD. Resp -breathing is nonlabored on supplemental oxygen via nasal lungs have mild rhonchi bilaterally. There is no cyanosis. GI - Abdomen is soft and nontender to palpation. There is no guarding or rebound tenderness. Derm -skin is warm and dry. There is no visible rash. MSK -present extremities are atraumatic. Psych -patient has appropriate affect. The patient does not appear internally stimulated. Neuro -patient answers questions appropriately with fluent speech. Patient moves all present extremities equally. Course Vital Signs Vital signs: Vital Signs Temperature 98.4 F 01/05/22 12:56 Pulse Rate 104 H 01/05/22 12:56 Respiratory Rate 24 H 01/05/22 12:56 Blood Pressure 158/81 01/05/22 12:56 Pulse Oximetry (%) 88 L 01/05/22 12:56 Temperature 98.4 F 01/05/22 12:56 Pulse Rate 92 H 01/05/22 15:40 Respiratory Rate 27 H 01/05/22 15:40 Blood Pressure 139/83 01/05/22 15:31 Pulse Oximetry (%) 94 01/05/22 15:40 [facility] Narrative Medical decision making narrative: Patient presents with worsening shortness of breath. Chest x-ray reveals diffuse pulmonary infiltrates left greater than right. Labs remarkable for leukocytosis and worsening of her chronic anemia. She also has thrombocytosis. Overall her clinical picture is difficult to differentiate between pneumonia or congestive heart failure. She does certainly have increased peripheral edema so I think she will certainly derive some benefit from diuretics. As her potassium is in the low normal range and I anticipate significant potassium losses with loop diuretics I administered potassium and magnesium preemptively. We will also treat with antibiotics for possible concomitant pneumonia. I discussed the test results with the patient and her [id number] and they are agreeable with the plan for admission. I discussed the patient's history examination and diagnostic findings with Dr. Pearl, who agrees with the plan of care and accepts admission. Critical care time I provided [31] minutes of critical care time. This was in addition to any separately billable procedures. The patient was given supplemental oxygen to treat her hypoxemic respiratory failure. She was given IV antibiotics to treat underlying pneumonia and IV diuretics to treat contributory congestive heart failure. The patient was closely monitored for response to treatment and stability of vital signs throughout their emergency department stay. Lab Data Lab results reviewed: Yes I reviewed the patient's lab results. Result diagrams: 01/05/22 13:20 Labs: Lab Results 01/05/22 01/05/22 01/05/22 Range/Units 13:20 13:20 13:20 WBC 13.3 H (4.5-11.0) K/mcL RBC 2.70 L (3.59-5.38) M/mcL Hgb 7.6 L (11.2-15.7) g/dL Hct 24.4 L (34.1-44.9) % POC Hct 27 L (36-48) % MCV 90.4 (80.0-100.0) fL MCH 28.1 (26.0-34.0) pg MCHC 31.1 (31.0-36.0) g/dL RDW 17.9 H (11.5-14.5) % Plt Count 599 H (140-440) K/mcL MPV 9.4 (7.4-10.4) fL Neut % (Auto) 80.5 H (38.0-78.0) % Lymph % (Auto) 8.7 L (15.5-49.0) % Snyder % (Auto) 9.8 (1.0-12.0) % Eos % (Auto) 0.5 (0.0-7.0) % Baso % (Auto) 0.5 (0.0-2.0) % Lymph # (Auto) 1.16 L (1.50-4.80) K/mcL Snyder # (Auto) 1.30 H (0.10-0.90) K/mcL Eos # (Auto) 0.06 (0.00-0.70) K/mcL Baso # (Auto) 0.06 (0.00-0.30) K/mcL Absolute Neutrophils 10.68 H (1.80-8.00) K/mcL VBG Lactic Acid (0.5-2.0) mmol/L POC Sodium 136 (133-145) mEq/L POC Potassium 3.7 (3.3-5.1) mEql/L POC Chloride 99 (96-108) mEq/L POC Total CO2 26 (22-30) mmol/L POC BUN 16 (6-20) mg/dL POC Creatinine 0.7 (0.6-1.2) mg/dL POC Glucose 118 H (70-105) mg/dL POC WB Ioniz Calcium 1.21 (1.16-1.32) mmEq/L Troponin T < 0.01 (<0.03) ng/mL NT-Pro-B Natriuret Pep 1512.0 H (<450.0) pg/mL 01/05/22 Range/Units 14:00 WBC (4.5-11.0) K/mcL RBC (3.59-5.38) M/mcL Hgb (11.2-15.7) g/dL Hct (34.1-44.9) % POC Hct (36-48) % MCV (80.0-100.0) fL MCH (26.0-34.0) pg MCHC (31.0-36.0) g/dL RDW (11.5-14.5) % Plt Count (140-440) K/mcL MPV (7.4-10.4) fL Neut % (Auto) (38.0-78.0) % Lymph % (Auto) (15.5-49.0) % Snyder % (Auto) (1.0-12.0) % Eos % (Auto) (0.0-7.0) % Baso % (Auto) (0.0-2.0) % Lymph # (Auto) (1.50-4.80) K/mcL Snyder # (Auto) (0.10-0.90) K/mcL Eos # (Auto) (0.00-0.70) K/mcL Baso # (Auto) (0.00-0.30) K/mcL Absolute Neutrophils (1.80-8.00) K/mcL VBG Lactic Acid 1.4 (0.5-2.0) mmol/L POC Sodium (133-145) mEq/L POC Potassium (3.3-5.1) mEql/L POC Chloride (96-108) mEq/L POC Total CO2 (22-30) mmol/L POC BUN (6-20) mg/dL POC Creatinine (0.6-1.2) mg/dL POC Glucose (70-105) mg/dL POC WB Ioniz Calcium (1.16-1.32) mmEq/L Troponin T (<0.03) ng/mL NT-Pro-B Natriuret Pep (<450.0) pg/mL ED POC Tests ED POC Tests: KAYODE - Influenza A Negative KAYODE - Influenza B Negative KAYODE - SARS Antigen Negative EKG Data EKG #1: EKG attestation: Yes I reviewed and interpreted this EKG. EKG results narrative: EKG performed at 1:44 PM: Sinus rhythm, rate 108. Normal P wave and T wave morphology. Incomplete right bundle branch block. No ST segment deviation. Normal [place] QRS and QTc duration. No old EKG immediately available for comparison. EKG was interpreted by me. Discharge Plan Patient/Caregiver Discharge Instructions Pt seen by NEWS ASSISTANT/PA only: No Clinical Impression: Acute hypoxemic respiratory failure, Congestive heart failure, Pneumonia Patient Disposition: Xfer As Inpt ([facility]) Follow up with: Chaitanya Mckeon ARNP [Primary Care Provider] - Prescriptions: No Action cyanocobalamin (vitamin B-12) [Vitamin B-12] 1,000 mcg Tablet 1,000 mcg PO DAILY 0RF zinc sulfate 50 mg zinc (220 mg) Tablet 50 mg PO DAILY 0RF melatonin 5 mg Tablet 15 mg PO HS 0RF cholecalciferol (vitamin D3) [Vitamin D3] 50 mcg (2,000 unit) Tablet 100 mcg PO DAILY 0RF hydrocodone-acetaminophen 10-325 mg tablet 1 - 2 tab PO Q4-6HP PRN (Reason: pain) Qty: 60 0RF potassium chloride 10 mEq Capsule, Extended Release 10 meq PO QAMCC 0RF prednisone 20 mg Tablet 20 mg PO QAMCC 0RF methocarbamol 750 mg Tablet 750 mg PO Q8H 0RF furosemide [Lasix] 20 mg Tablet 20 mg PO QDAY 0RF polyethylene glycol 3350 [Miralax] 17 gram/dose Powder 17 g PO QDAY 0RF ondansetron [Zofran ODT] 4 mg Tablet,Disintegrating 4 mg translingual Q6 PRN (Reason: Nausea And Vomiting) 0RF
[2022-01-05] MEDS ORDERED: POTASSIUM CHLORIDE 20 MEQ TABLET PO ONE (15:09)
[2022-01-05] MEDS ORDERED: FUROSEMIDE 40 MG/4 ML VIAL IV ONE (15:09)
[2022-01-05] MEDS ORDERED: DOXYCYCLINE 100 MG in DEXTROSE 5% IN WATER 100 ML IV ONE (15:09)
[2022-01-05] MEDS ORDERED: MAGNESIUM OXIDE 400 MG TABLET PO ONE (15:09)
[2022-01-05] MEDS ORDERED: cefTRIAXone 1 GM VIAL IV ONE (15:09)
--- NOTE | 2022-01-05 15:43 | XRay Report ---
CLINICAL INFORMATION: Dyspnea COMPARISON: 12/03/2021 TECHNIQUE: Portable FINDINGS: The heart size, mediastinum and pulmonary vessels are unremarkable. Large groundglass infiltrate has developed diffusely throughout the right lung. Minor left basilar atelectasis noted. The tiny right pleural effusion. The bones and soft tissues are within normal limits. IMPRESSION: Large alveolar infiltrate throughout the right lung. Suspect pneumonia Interpreted and Authenticated by: Sergei Trejo 01/05/22
[2022-01-05] MEDS ORDERED: ONDANSETRON 4 MG/2 ML VIAL IV ONE (16:08)
[2022-01-05 17:36] LABS: Iron 10 ug/dL (37-145); TIBC Calculation 211 ug/dl (228-428); Transferrin % Saturation 5 % (15-50)
--- NOTE | 2022-01-05 18:23 | Internal Med History&Physical ---
HPI History of Present Illness Patient information: Note initiated : 01/05/22 at 6:00 pm Service Date, if different from initiated Date: [] Patient: Bianka Peterson a 76 y/o F admitted on for Shortness of breath. Chief Complaint: [] Chief complaint: Shortness of breath History of present illness: Ms. Peterson is a 76 year old female with a history of chronic kidney disease stage III, concern for possible interstitial lung disease, recent right hip periprosthetic fracture status post ORIF in November, who has been in a nursing home facility following surgery for rehab. Present presented to the emergency department for shortness of breath that started the week prior to admission. While at the SNF, the patient was started on Lasix for bilateral lower extremity edema. The patient also recently had a CT chest without contrast that showed right diffuse groundglass alveolar infiltrates involving the right upper, right middle and right lower lobe. There was a small left upper lobe infiltrate. The patient was recently seen in the emergency department for epistaxis that resolved after cauterization in the emergency department. In the emergency department on the day of hospital admission, the patient required 6 L/min oxygen supplementation. The patient had leukocytosis however was afebrile and did not have a cough. Hemoglobin is lower than 2 days prior to admission at 7.6 down from 8.9. NT pro BNP was elevated at 1512. EKG did not show any acute ischemic changes, troponin was normal. The patient does have bilateral lower extremity, right greater than left and received a dose of IV Lasix in the emergency department. Hospital medicine was consulted to admit the patient for acute hypoxic respiratory failure. I discussed the plan of admission with the patient and family members at the bedside, all questions answered to the best my ability. We discussed CODE STATUS in detail, the patient will discuss this with her family prior to making a decision. Review of systems Constitutional: Positive for fatigue, no fevers Eyes: no vision changes or pain Cardiovascular: no chest pain, no palpitations Respiratory: Positive for dyspnea, denies cough Gastrointestinal: no abdominal pain, no nausea, vomiting, or diarrhea Genitourinary: no dysuria or difficulty voiding Musculoskeletal: Positive for right lower extremity pain, positive for bilateral lower extremity edema. Integumentary: no skin lesion or wound Neurological: no focal weakness or numbness Psychiatric: no anxiety or depression Physical exam Head: Atraumatic, normal inspection. Eyes: normal appearance, no scleral icterus. Neck: full ROM Respiratory: Appears to be in respiratory distress, respiratory rate in the 30s, 6 L/min oxygen supplementation, crackles predominantly on the right lung bell. Cardiovascular: Regular tachycardia, S1, S2. GI/Abdominal: soft, nontender, no guarding. Extremities: Bilateral lower extremity edema, tenderness over recent right hip surgical sites, surgical incisions appear to be healing well. Neurological: CN II-XII intact, intact motor, intact sensation. Psychiatric: normal mood, intermittent confusion. Skin: warm, normal color PFSH PFSH All Active Problems (Updated 01/05/22 @ 17:05 by Omar Sadler DO) Post-operative pain (Acute) Hip fracture requiring operative repair (Acute) Acute pain of right hip (Acute) Left-sided epistaxis (Acute) Acute hypoxemic respiratory failure (Acute) Congestive heart failure (Acute) Pneumonia (Acute) Chronic kidney disease (CKD) stage G3a/A1, moderately decreased glomerular filtration rate (GFR) between 45-59 mL/min/1.73 square meter and albuminuria creatinine ratio less than 30 mg/g (Chronic) Left wrist pain (Chronic) Blurring of visual image (Chronic) Insomnia (Chronic) Increased frequency of urination (Chronic) Pain of right hip joint (Chronic) Malaise (Chronic) Loss of teeth due to extraction (Chronic) Osteoporosis (Chronic) Fibrosis of lung (Chronic) Depression (Chronic) Fatigue (Chronic) SOB (shortness of breath) (Chronic) Irritability (Chronic) Arthritis of hand (Chronic) Medical History Arthritis of hand began 30 years ago Blurring of visual image Depression Fatigue 01/2016 Fibrosis of lung Gallbladder problem removed History of tobacco use Increased frequency of urination Insomnia Irritability Left wrist pain Loss of teeth due to extraction Malaise Osteoporosis Pain of right hip joint SOB (shortness of breath) Surgical History H/O total hysterectomy with bilateral salpingo-oophorectomy (BSO) at age 38 History of cholecystectomy at age 53 History of hernia repair History of herniorrhaphy at age 5 History of total hysterectomy Family History Sister Breast cancer Diabetes Grandmother Breast cancer Paternal Father Diabetes Social History (Updated 01/28/19 @ 09:18 by Eladia Borrego MD) marital status: occupational status: retired other: Children-3 alcohol intake frequency: holiday/special occasion only substance use type: does not use seatbelt use: always MEDS/ALLERGIES Home Medications and Allergies Home Medications Medication Instructions Recorded Confirmed Type cholecalciferol (vitamin D3) 50 100 mcg PO DAILY 11/20/21 01/05/22 History mcg (2,000 unit) tablet (Vitamin D3) cyanocobalamin (vitamin B-12) 1,000 mcg PO DAILY 11/20/21 01/05/22 History 1,000 mcg tablet (Vitamin B-12) melatonin 5 mg tablet 15 mg PO HS 11/20/21 12/03/21 History zinc sulfate 50 mg zinc (220 mg) 50 mg PO DAILY 11/20/21 01/05/22 History tablet hydrocodone 10 mg-acetaminophen 1 - 2 tab PO Q4-6HP PRN #60 tab 11/28/21 12/03/21 Rx 325 mg tablet furosemide 20 mg tablet (Lasix) 20 mg PO QDAY 01/05/22 01/05/22 History methocarbamol 750 mg tablet 750 mg PO Q8H 01/05/22 01/05/22 History ondansetron 4 mg disintegrating 4 mg TRANSLINGUAL Q6 PRN 01/05/22 01/05/22 History tablet polyethylene glycol 3350 17 17 g PO QDAY 01/05/22 01/05/22 History gram/dose oral powder (Miralax) potassium chloride 10 mEq [address] [facility] 01/05/22 01/05/22 History capsule,extended release prednisone 20 mg tablet [address] [facility] 01/05/22 01/05/22 History Allergies Allergy/AdvReac Type Severity Reaction Status Date / Time No Known Drug Allergies Allergy Verified 12/03/21 08:57 EXAM Constitutional Vitals: Temp Pulse Resp BP Pulse Ox 98.4 F 107 H 33 H 176/96 100 01/05/22 12:56 01/05/22 17:19 01/05/22 17:19 01/05/22 16:46 01/05/22 17:19 DATA Data Completed and Pending Labs: Labs from last 24 hours 01/05/22 01/05/22 01/05/22 14:00 13:20 13:20 WBC RBC Hgb Hct POC Hct MCV MCH MCHC RDW Plt Count MPV Neut % (Auto) Lymph % (Auto) [place] % (Auto) Eos % (Auto) Baso % (Auto) Lymph # (Auto) [place] # (Auto) Eos # (Auto) Baso # (Auto) Absolute Neutrophils VBG Lactic Acid 1.4 POC Sodium POC Potassium POC Chloride POC Total CO2 POC BUN POC Creatinine POC Glucose POC WB Ioniz Calcium Iron 12 L TIBC Unsat Iron Binding Transferrin % Sat Troponin T C-Reactive Protein NT-Pro-B Natriuret Pep Procalcitonin Mycoplasma pneumon IgM Pending 01/05/22 01/05/22 01/05/22 13:20 13:20 13:20 WBC RBC Hgb Hct POC Hct 27 L MCV MCH MCHC RDW Plt Count MPV Neut % (Auto) Lymph % (Auto) [place] % (Auto) Eos % (Auto) Baso % (Auto) Lymph # (Auto) [place] # (Auto) Eos # (Auto) Baso # (Auto) Absolute Neutrophils VBG Lactic Acid POC Sodium 136 POC Potassium 3.7 POC Chloride 99 POC Total CO2 26 POC BUN 16 POC Creatinine 0.7 POC Glucose 118 H POC WB Ioniz Calcium 1.21 Iron 10 L TIBC 211 L Unsat Iron Binding 201 Transferrin % Sat 5 L Troponin T C-Reactive Protein 14.80 H NT-Pro-B Natriuret Pep 1512.0 H Procalcitonin 0.11 H Mycoplasma pneumon IgM 01/05/22 01/05/22 13:20 13:20 WBC 13.3 H RBC 2.70 L Hgb 7.6 L Hct 24.4 L POC Hct MCV 90.4 MCH 28.1 MCHC 31.1 RDW 17.9 H Plt Count 599 H MPV 9.4 Neut % (Auto) 80.5 H Lymph % (Auto) 8.7 L [place] % (Auto) 9.8 Eos % (Auto) 0.5 Baso % (Auto) 0.5 Lymph # (Auto) 1.16 L [place] # (Auto) 1.30 H Eos # (Auto) 0.06 Baso # (Auto) 0.06 Absolute Neutrophils 10.68 H VBG Lactic Acid POC Sodium POC Potassium POC Chloride POC Total CO2 POC BUN POC Creatinine POC Glucose POC WB Ioniz Calcium Iron TIBC Unsat Iron Binding Transferrin % Sat Troponin T < 0.01 C-Reactive Protein NT-Pro-B Natriuret Pep Procalcitonin Mycoplasma pneumon IgM A/P Narrative A/P Narrative: Assessment: 76 year old female with a history of chronic kidney disease stage III, history of possible interstitial lung disease, recent right hip periprosthetic fracture status post ORIF in November, who has been in a nursing home facility following surgery for rehab now admitted for acute hypoxic respiratory failure occurring in the setting of diffuse right-sided lung infiltrates of uncertain etiology, most likely pneumonia however differential includes aspiration, asymmetric pulmonary edema, fat embolism syndrome, pulmonary embolism, ILD. #Acute hypoxic respiratory failure #Right lung infiltrates #Probable community-acquired pneumonia #Concern for heart failure -Bilateral lower extremity edema -Elevated NT proBNP #Concern for dysphagia #Recent right hip fracture status post ORIF #Acute on chronic anemia #Bilateral lower extremity edema #History of possible interstitial lung disease Plan -Levofloxacin IV daily for now. -Oxygen supplementation. -Procalcitonin and CRP. -Respiratory panel. -[place] PCR. -Mycoplasma IgM. -MRSA nasal PCR. -Follow blood cultures. -Urinalysis to evaluate for proteinuria, consider urine protein creatinine ratio. -CTA chest to evaluate for PE, fat embolism, lung parenchyma. -Transthoracic echocardiogram. -Home medication reconciliation. -Hold off on further diuresis for now, monitor volume status. -Speech consult, consider esophagram. -PT and OT consult. -N.p.o. pending speech evaluation. -DVT prophylaxis: Lovenox -Goals of care, POLST. -Disposition: TBD Time Spent With Patient Time: Total time spent is greater than 50% in coordination of care (as documented) at patient's floor/unit and/or counseling patient:
[2022-01-05 18:49] LABS: Appearance,Urine Clear (Clear); Bilirubin,Urine Negative (Negative); Color,Urine Yellow; Culture Indicated,Urine No; Glucose,Urine (UA) Negative (Negative); Ketones,Urine Negative (Negative); Leukocyte Esterase,Urine Negative /uL (Negative); Nitrate,Urine Negative (Negative); PH,Urine 8.5 (5.0-9.0); Protein,Urine Trace mg/dL (Negative); Specific Gravity,Urine 1.015 (1.000-1.035); Urine Blood Negative ery/mcL (Negative); Urine RBC 0 /hpf (0-3); Urine Squamous Epithelial Cell 3 /hpf (0-4); Urine WBC 1 /hpf (0-4); Urobilinogen,Urine Normal
[2022-01-05] MEDS ORDERED: SENNOSIDES 1 TABLET PO PRN (19:29)
[2022-01-05] MEDS ORDERED: ACETAMINOPHEN 325 MG TABLET PO PRN (19:29)
[2022-01-05] MEDS ORDERED: LACTULOSE 20 GM/30 ML ORAL.SOL PO PRN (19:29)
[2022-01-05] MEDS ORDERED: ONDANSETRON 4 MG/2 ML VIAL IV PRN (19:29)
[2022-01-05 19:56] LABS: ALT/SGPT 16 U/L (<40); AST/SGOT 37 U/L (<32); Albumin 3.1 gm/dL (3.2-5.2); Albumin/Globulin Ratio 0.9 (1.0-2.3); Alkaline Phosphatase 386 U/L (39-117); Bilirubin,Direct < 0.2 mg/dL (0-0.3); Bilirubin,Total 0.2 mg/dL (0.1-1.0); Blood Urea Nitrogen 15 mg/dL (8-23); Calcium 9.5 mg/dL (8.6-10.4); Carbon Dioxide 20 mmol/L (22-30); Chloride 99 mmol/L (96-108); Globulin 3.5 gm/dL (2.2-3.7); Glomerular Filtration Rate 71; Glucose 119 mg/dL (70-105); Lactate Dehydrogenase 421 U/L (135-225); Phosphorous 2.3 mg/dL (2.5-4.5); Triglycerides 82 mg/dL (<150); Uric Acid 4.4 mg/dL (2.5-8.0)
[2022-01-05] MEDS: LEVOFLOXACIN 750 MG/150 ML BAG IV SCH (20:02)
[2022-01-05] MEDS: DOCUSATE SODIUM 100 MG CAPSULE PO SCH (20:41)
[2022-01-05] MEDS: 0.9 % SODIUM CHLORIDE 10 ML SYRINGE IV SCH (20:41)
[2022-01-05] MEDS: METHOCARBAMOL 750 MG TABLET PO PRN (20:52)
[2022-01-05] MEDS ORDERED: MELATONIN 3 MG TABLET PO SCH (21:00)
[2022-01-05] MEDS: HYDROcodone/APAP 5/325MG TABLET PO PRN (21:56)
[2022-01-06] MEDS: HYDROcodone/APAP 5/325MG TABLET PO PRN ×5 (02:02→20:59)
[2022-01-06] MEDS: METHOCARBAMOL 750 MG TABLET PO PRN ×3 (05:05→20:59)
[2022-01-06] MEDS: 0.9 % SODIUM CHLORIDE 10 ML SYRINGE IV SCH ×3 (05:45→22:07)
[2022-01-06 06:37] LABS: Hematocrit 27.4 % (34.1-44.9); Hemoglobin 8.5 g/dL (11.2-15.7); Mean Cell Volume 89.8 fL (80.0-100.0); Mean Platelet Volume 9.8 fL (7.4-10.4); Platelet Count 644 K/mcL (140-440); RBC 3.05 M/mcL (3.59-5.38); Red Cell Distribution Width 17.9 % (11.5-14.5); WBC 12.5 K/mcL (4.5-11.0)
[2022-01-06 07:18] LABS: ALT/SGPT 14 U/L (<40); AST/SGOT 29 U/L (<32); Albumin/Globulin Ratio 0.8 (1.0-2.3); Alkaline Phosphatase 397 U/L (39-117); Bilirubin,Direct < 0.2 mg/dL (0-0.3); Bilirubin,Total 0.3 mg/dL (0.1-1.0); Blood Urea Nitrogen 14 mg/dL (8-23); Calcium 9.6 mg/dL (8.6-10.4); Carbon Dioxide 26 mmol/L (22-30); Chloride 97 mmol/L (96-108); Globulin 3.8 gm/dL (2.2-3.7); Glomerular Filtration Rate 71; Glucose 95 mg/dL (70-105); Lactate Dehydrogenase 435 U/L (135-225); Triglycerides 80 mg/dL (<150); Uric Acid 4.4 mg/dL (2.5-8.0)
--- NOTE | 2022-01-06 07:42 | EKG ---
[facility] Test Date: 2022-01-05 Pat Name: Bianka Peterson Department: ED Room: Gender: Female Informatics Consultant: AW : 1945 Requested By: Omar Sadler Order Number: [id number] Reading MD: Fredy Salas Measurements Intervals [place] Rate: 108 P: 52 MI: 148 QRS: -42 QRSD: 114 T: 3 QT: 333 QTc: 447 Interpretive Statements Sinus tachycardia Incomplete RBBB and LAFB Low voltage, precordial leads Electronically Signed On 01-06-2022 7:41:50 PST by Fredy Salsa /store/M0/[id number]
[2022-01-06] MEDS: DOCUSATE SODIUM 100 MG CAPSULE PO SCH ×2 (07:48→20:43)
--- NOTE | 2022-01-06 07:56 | Cat Scan Report ---
History: Short of breath, pulmonary infiltrates, elevated serum d-dimer level, evaluate for pulmonary emboli TECHNIQUE: Following injection of intravenous nonionic contrast and the chest was imaged during the pulmonary arterial phase. Sagittal, coronal and axial MIPS images were created. The radiation exposure was limited using dose reduction technology. FINDINGS: There is a moderately severe diffuse alveolar infiltrate throughout the right lung. There is relative sparing of the basilar segments. Small streaky infiltrates are present in the inferior segment lingula and in the basilar segments left lower lobe. The consolidation of lung parenchyma has become worse since the recent CT performed on 01/02/22. There is a small but enlarging right-sided pleural effusion. No left-side effusion is present. The pulmonary arteries are normal without evidence of emboli. The aorta is normal in caliber. The heart is compressed by a pectus excavatum deformity but is not abnormally enlarged. There is no significant plaque formation in the coronary arteries nor the aorta. A moderate kyphoscoliotic curvature is present of the thoracic spine. There is degenerative disc disease and arthritis at multiple levels in the thoracic and cervical spine. IMPRESSION: Worsening pneumonia in the right lung No evidence of pulmonary emboli Interpreted and Authenticated by: Cody Bernal 01/06/22
[2022-01-06] MEDS ORDERED: POLYETHYLENE GLYCOL 3350 17 GM PACKET PO SCH (09:00)
[2022-01-06] MEDS ORDERED: ENOXAPARIN 40 MG/0.4 ML SYRINGE SQ SCH (09:00)
[2022-01-06 11:03] LABS: Anisocytosis 1+ (None Seen); Hypochromasia FEW (None Seen); Lymphocytes % 2 % (15-49); Monocytes % (Manual) 2 % (1-12); Platelet Estimate MARKEDLY INCREASED (Normal); Polychromasia OCC (None Seen); RBC Morphology ABNORMAL (Normal); Segmented Neutrophils % 96 % (38-78)
[2022-01-06] MEDS: LEVOFLOXACIN 750 MG/150 ML BAG IV SCH (13:00)
[2022-01-06] MEDS ORDERED: FLUoxetine HCL 20 MG CAPSULE PO ONE ×2 (15:22→20:30)
--- NOTE | 2022-01-06 18:15 | Internal Med Progress Note ---
SUBJECTIVE Subjective Patient information: Note initiated : 01/06/22 at 6:15 pm Service Date, if different from initiated Date: [] Patient: Bianka Peterson a 76 y/o F admitted on 01/05/22 for Shortness of breath. Chief Complaint: [] Principal diagnosis: shortness of breath Interval history: Ms. Peterson is a 76 year old female with a history of chronic kidney disease stage III, concern for possible interstitial lung disease, recent right hip periprosthetic fracture status post ORIF in November, who has been in a [facility] facility following surgery for rehab. Present presented to the emergency department for shortness of breath that started the week prior to admission. While at the SNF, the patient was started on Lasix for bilateral lower extremity edema. The patient also recently had a CT chest without contrast that showed right diffuse groundglass alveolar infiltrates involving the right upper, right middle and right lower lobe. There was a small left upper lobe infiltrate. The patient was recently seen in the emergency department for epistaxis that resolved after cauterization in the emergency department. In the emergency department on the day of hospital admission, the patient required 6 L/min oxygen supplementation. The patient had leukocytosis however was afebrile and did not have a cough. Hemoglobin is lower than 2 days prior to admission at 7.6 down from 8.9. NT pro BNP was elevated at 1512. EKG did not show any acute ischemic changes, troponin was normal. The patient does have bilateral lower extremity, right greater than left and received a dose of IV Lasix in the emergency department. Hospital medicine was consulted to admit the patient for acute hypoxic respiratory failure. I discussed the plan of admission with the patient and family members at the bedside, all questions answered to the best my ability. We discussed CODE STATUS in detail, the patient will discuss this with her family prior to making a decision. 01/06 Much better today, mycoplasma IgM positive. CTA chest was negative for PE, showed predominantly right sided diffuse infiltrates. PANTHER and Respiratory panel negative. MRSA nasal PCR negative. Continue levofloxacin IV today. Continues to require about 6 L/min oxygen supplementation. Started dysphagia diet, awaiting speech evaluating. Physical exam Head: Atraumatic, normal inspection. Eyes: normal appearance, no scleral icterus. Neck: full ROM Respiratory: Appears to be in respiratory distress, respiratory rate in the 30s, 6 L/min oxygen supplementation, crackles predominantly on the right lung bell. Cardiovascular: Regular tachycardia, S1, S2. GI/Abdominal: soft, nontender, no guarding. Extremities: Bilateral lower extremity edema, tenderness over recent right hip surgical sites, surgical incisions appear to be healing well. Neurological: CN II-XII intact, intact motor, intact sensation. Psychiatric: normal mood, intermittent confusion. Skin: warm, normal color Constitutional Vitals: Vital Signs Temp Pulse Resp BP Pulse Ox 98.2 F 88 24 H 134/86 93 01/06/22 17:12 01/06/22 06:18 01/06/22 16:06 01/06/22 16:01 01/06/22 16:06 Period Temp Pulse Resp BP Sys/Ortiz Pulse Ox Last 24 Hr 97.1 F-99.4 F 88-112 14-35 113-166/72-126 86-100 Intake and Output 01/06/22 01/06/22 01/06/22 05:59 13:59 21:59 Intake Total 510 Output Total 2 2 Balance -2 -2 510 Weight 59.783 kg Patient Weight 01/07/22 05:59 Weight 59.783 kg Intake & Output: Intake & Output 01/06/22 01/06/22 01/06/22 05:59 13:59 21:59 Intake Total 510 Output Total 2 2 Balance -2 -2 510 Weight 59.783 kg Intake: IV 150 Oral 360 Output: # of times incontinent of urine 2 2 Other: Meal Dinner Percent of Meal Consumed 25% Feeding Ability Independent Stool Size Copious Stool Color Brown Stool Consistency Soft Formed # Bowel Movements 1 OBJ DATA Labs CBC & Chem 7: 01/06/22 05:30 01/06/22 05:30 Labs: Abnormal Lab Results 01/06/22 01/06/22 01/05/22 05:30 05:30 21:25 WBC 12.5 H RBC 3.05 L Hgb 8.5 L 7.6 L Hct 27.4 L POC Hct RDW 17.9 H Plt Count 644 H Neut % (Auto) Lymph % (Auto) Lymph # (Auto) [place] # (Auto) Seg Neutrophils % 96 H Lymphocytes % 2 L Absolute Neutrophils Platelet Estimate Markedly increased A RBC Morphology Abnormal A Polychromasia Occ A Hypochromasia Few A Anisocytosis 1+ A Carbon Dioxide Anion Gap Glucose POC Glucose Phosphorus Iron TIBC Transferrin % Sat GGT 246 H AST Alkaline Phosphatase 397 H Lactate Dehydrogenase 435 H C-Reactive Protein NT-Pro-B Natriuret Pep Albumin 3.0 L Globulin 3.8 H Albumin/Globulin Ratio 0.8 L Procalcitonin Urine Protein Mycoplasma pneumon IgM 01/05/22 01/05/22 01/05/22 14:58 13:20 13:20 WBC RBC Hgb Hct POC Hct RDW Plt Count Neut % (Auto) Lymph % (Auto) Lymph # (Auto) [place] # (Auto) Seg Neutrophils % Lymphocytes % Absolute Neutrophils Platelet Estimate RBC Morphology Polychromasia Hypochromasia Anisocytosis Carbon Dioxide 20 L Anion Gap 19.0 H Glucose 119 H POC Glucose Phosphorus 2.3 L Iron TIBC Transferrin % Sat GGT 236 H AST 37 H Alkaline Phosphatase 386 H Lactate Dehydrogenase 421 H C-Reactive Protein NT-Pro-B Natriuret Pep Albumin 3.1 L Globulin Albumin/Globulin Ratio 0.9 L Procalcitonin Urine Protein Trace A Mycoplasma pneumon IgM Positive A 01/05/22 01/05/22 01/05/22 13:20 13:20 13:20 WBC RBC Hgb Hct POC Hct RDW Plt Count Neut % (Auto) Lymph % (Auto) Lymph # (Auto) [place] # (Auto) Seg Neutrophils % Lymphocytes % Absolute Neutrophils Platelet Estimate RBC Morphology Polychromasia Hypochromasia Anisocytosis Carbon Dioxide Anion Gap Glucose POC Glucose Phosphorus Iron 12 L 10 L TIBC 211 L Transferrin % Sat 5 L GGT AST Alkaline Phosphatase Lactate Dehydrogenase C-Reactive Protein 14.80 H NT-Pro-B Natriuret Pep Albumin Globulin Albumin/Globulin Ratio Procalcitonin 0.11 H Urine Protein Mycoplasma pneumon IgM 01/05/22 01/05/22 13:20 13:20 WBC 13.3 H RBC 2.70 L Hgb 7.6 L Hct 24.4 L POC Hct 27 L RDW 17.9 H Plt Count 599 H Neut % (Auto) 80.5 H Lymph % (Auto) 8.7 L Lymph # (Auto) 1.16 L [place] # (Auto) 1.30 H Seg Neutrophils % Lymphocytes % Absolute Neutrophils 10.68 H Platelet Estimate RBC Morphology Polychromasia Hypochromasia Anisocytosis Carbon Dioxide Anion Gap Glucose POC Glucose 118 H Phosphorus Iron TIBC Transferrin % Sat GGT AST Alkaline Phosphatase Lactate Dehydrogenase C-Reactive Protein NT-Pro-B Natriuret Pep 1512.0 H Albumin Globulin Albumin/Globulin Ratio Procalcitonin Urine Protein Mycoplasma pneumon IgM Meds: Medications Acetaminophen (Acetaminophen 325 Mg Tablet) 650 mg PO Q6HP PRN; Protocol PRN Reason: Per Pain Protocol/Fever > 101 Hydrocodone Bitart/Acetaminophen (Hydrocodone/Apap 5/325mg Tablet) 1 tab PO Q4HP PRN; Protocol PRN Reason: Per Pain Protocol Last Admin: 01/06/22 17:02 Dose: 1 tab Documented by: Cyanocobalamin (Cyanocobalamin (Vitamin B-12) 500 Mcg Tablet) 1,000 mcg PO DAILY [facility] Docusate Sodium (Docusate Sodium 100 Mg Capsule) 100 mg PO BID [facility] Last Admin: 01/06/22 07:48 Dose: 100 mg Documented by: Enoxaparin Sodium (Enoxaparin 40 Mg/0.4 Ml Syringe) 40 mg SQ DAILY [facility] Last Admin: 01/06/22 07:47 Dose: 40 mg Documented by: Fluoxetine HCl (Fluoxetine Hcl 20 Mg Capsule) 20 mg PO QDAY [facility] Levofloxacin (Levaquin) 750 mg in 150 mls @ 100 mls/hr IV Q24H [facility]; Protocol Stop: 01/10/22 19:28 Last Infusion: 01/06/22 14:41 Dose: Infused Documented by: Lactulose (Lactulose 20 Gm/30 Ml Oral.[place]) 10 gm PO DAILYP PRN PRN Reason: Constipation Melatonin (Melatonin 3 Mg Tablet) 6 mg PO HS [facility] Last Admin: 01/05/22 21:59 Dose: Not Given Documented by: Methocarbamol (Methocarbamol 750 Mg Tablet) 750 mg PO Q8HP PRN PRN Reason: muscle spasms Last Admin: 01/06/22 13:50 Dose: 750 mg Documented by: Ondansetron HCl (Ondansetron 4 Mg/2 Ml Vial) 4 mg IV Q4HP PRN; Protocol PRN Reason: Nausea And Vomiting Polyethylene Glycol (Polyethylene Glycol 3350 17 Gm Packet) 17 gm PO QDAY [facility] Last Admin: 01/06/22 07:48 Dose: 17 gm Documented by: Potassium Chloride (Potassium Chloride 10 Meq Tablet) [facility] Senna (Sennosides 1 Tablet) 2 tab PO HSP PRN PRN Reason: Constipation Sodium Chloride (0.9 % Sodium Chloride 10 Ml Syringe) 10 ml IV Q8 [facility] Last Admin: 01/06/22 14:00 Dose: 10 ml Documented by: Vitamin D (Vitamin D3 25 Mcg Tablet) 100 mcg PO DAILY [facility] Zinc Sulfate (Zinc Sulfate 50 Mg Capsule) 50 mg PO DAILY [facility] A/P Narrative A/P Narrative: Assessment: 76 year old female with a history of chronic kidney disease stage III, history of possible interstitial lung disease, recent right hip periprosthetic fracture status post ORIF in November, who has been in a [facility] facility following surgery for rehab now admitted for acute hypoxic respiratory failure secondary to pneumonia. Pneumonia workup was positive for Mycoplasma IgM. #Acute hypoxic respiratory failure #Community acquired pneumonia #Positive Mycoplasma IgM #Concern for possible heart failure #Concern for dysphagia #Recent right hip fracture status post ORIF #Acute on chronic anemia #History of possible interstitial lung disease Plan -Continue Levofloxacin IV daily for now, likely transition to oral levofloxacin soon. -Oxygen supplementation. -Mycoplasma PCR. -Follow blood cultures. -Transthoracic echocardiogram report pending. -Continue important home medications. -Holding home lasix for now, appears euvolemic. -Speech consult. -PT and OT consult. -Dyshagia diet. -DVT prophylaxis: Lovenox -Code status: Full -Disposition: Probably SNF for rehab. Time Spent With Patient Time: Total time spent is greater than 50% in coordination of care (as documented) at patient's floor/unit and/or counseling patient:
[2022-01-06 19:18] LABS: Basophils # (Auto) 0.05 K/mcL (0.00-0.30); Basophils % (Auto) 0.5 % (0.0-2.0); Eosinophils # (Auto) 0.15 K/mcL (0.00-0.70); Eosinophils % (Auto) 1.4 % (0.0-7.0); Hemoglobin 7.9 g/dL (11.2-15.7); Lymphocytes # (Auto) 1.32 K/mcL (1.50-4.80); Lymphocytes % (Auto) 12.2 % (15.5-49.0); Mean Cell Volume 91.2 fL (80.0-100.0); Mean Corpuscular HGB Conc 30.4 g/dL (31.0-36.0); Mean Platelet Volume 9.4 fL (7.4-10.4); Monocytes # (Auto) 1.31 K/mcL (0.10-0.90); Monocytes % (Auto) 12.1 % (1.0-12.0); Neutrophils % (Auto) 73.8 % (38.0-78.0); Platelet Count 572 K/mcL (140-440); RBC 2.85 M/mcL (3.59-5.38); WBC 10.8 K/mcL (4.5-11.0)
[2022-01-06] MEDS ORDERED: SENNOSIDES 1 TABLET PO PRN (20:25)
[2022-01-06] MEDS ORDERED: LACTULOSE 20 GM/30 ML ORAL.SOL PO PRN (20:25)
[2022-01-06] MEDS: MELATONIN 3 MG TABLET PO SCH (20:59)
[2022-01-06 21:34] LABS: ALT/SGPT 14 U/L (<40); AST/SGOT 32 U/L (<32); Albumin 2.8 gm/dL (3.2-5.2); Albumin/Globulin Ratio 0.8 (1.0-2.3); Alkaline Phosphatase 352 U/L (39-117); Bilirubin,Direct < 0.2 mg/dL (0-0.3); Bilirubin,Total 0.3 mg/dL (0.1-1.0); Blood Urea Nitrogen 17 mg/dL (8-23); Calcium 9.1 mg/dL (8.6-10.4); Carbon Dioxide 23 mmol/L (22-30); Chloride 96 mmol/L (96-108); Globulin 3.5 gm/dL (2.2-3.7); Glomerular Filtration Rate 83; Glucose 111 mg/dL (70-105); Lactate Dehydrogenase 417 U/L (135-225); Phosphorous 2.5 mg/dL (2.5-4.5); Triglycerides 90 mg/dL (<150); Uric Acid 4.4 mg/dL (2.5-8.0)
[2022-01-06] MEDS: ACETAMINOPHEN 325 MG TABLET PO PRN (23:06)
[2022-01-07] MEDS: HYDROcodone/APAP 5/325MG TABLET PO PRN ×6 (01:06→22:44)
[2022-01-07] MEDS: 0.9 % SODIUM CHLORIDE 10 ML SYRINGE IV SCH ×3 (05:11→21:40)
[2022-01-07] MEDS: METHOCARBAMOL 750 MG TABLET PO PRN ×3 (05:53→22:04)
[2022-01-07 06:58] LABS: Basophils # (Auto) 0.07 K/mcL (0.00-0.30); Basophils % (Auto) 0.6 % (0.0-2.0); Eosinophils # (Auto) 0.37 K/mcL (0.00-0.70); Eosinophils % (Auto) 3.1 % (0.0-7.0); Hematocrit 30.1 % (34.1-44.9); Lymphocytes # (Auto) 1.58 K/mcL (1.50-4.80); Lymphocytes % (Auto) 13.1 % (15.5-49.0); Mean Cell Volume 91.2 fL (80.0-100.0); Mean Corpuscular HGB Conc 29.9 g/dL (31.0-36.0); Mean Platelet Volume 9.8 fL (7.4-10.4); Monocytes # (Auto) 1.36 K/mcL (0.10-0.90); Monocytes % (Auto) 11.2 % (1.0-12.0); Platelet Count 623 K/mcL (140-440); Red Cell Distribution Width 17.8 % (11.5-14.5); WBC 12.1 K/mcL (4.5-11.0)
[2022-01-07 07:21] LABS: ALT/SGPT 15 U/L (<40); AST/SGOT 35 U/L (<32); Albumin/Globulin Ratio 0.8 (1.0-2.3); Alkaline Phosphatase 364 U/L (39-117); Bilirubin,Direct < 0.2 mg/dL (0-0.3); Bilirubin,Total 0.2 mg/dL (0.1-1.0); Blood Urea Nitrogen 17 mg/dL (8-23); Calcium 9.5 mg/dL (8.6-10.4); Carbon Dioxide 26 mmol/L (22-30); Chloride 98 mmol/L (96-108); Globulin 3.8 gm/dL (2.2-3.7); Glomerular Filtration Rate 71; Glucose 94 mg/dL (70-105); Lactate Dehydrogenase 433 U/L (135-225); Phosphorous 3.5 mg/dL (2.5-4.5); Triglycerides 92 mg/dL (<150); Uric Acid 4.5 mg/dL (2.5-8.0)
[2022-01-07] MEDS ORDERED: POTASSIUM CHLORIDE 10 MEQ TABLET PO SCH (08:00)
[2022-01-07] MEDS ORDERED: FLUoxetine HCL 20 MG CAPSULE PO SCH (09:00)
[2022-01-07] MEDS ORDERED: ZINC SULFATE 50 MG CAPSULE PO SCH (09:00)
[2022-01-07] MEDS ORDERED: VITAMIN D3 25 MCG TABLET PO SCH (09:00)
[2022-01-07] MEDS ORDERED: CYANOCOBALAMIN (VITAMIN B-12) 500 MCG TABLET PO SCH (09:00)
[2022-01-07] MEDS: LEVOFLOXACIN 750 MG/150 ML BAG IV SCH (09:00)
[2022-01-07] MEDS: ENOXAPARIN 40 MG/0.4 ML SYRINGE SQ SCH (09:25)
[2022-01-07] MEDS: CYANOCOBALAMIN (VITAMIN B-12) 500 MCG TABLET PO SCH (09:25)
[2022-01-07] MEDS: POTASSIUM CHLORIDE 10 MEQ TABLET PO SCH (09:26)
[2022-01-07] MEDS: FLUoxetine HCL 20 MG CAPSULE PO SCH (09:26)
[2022-01-07] MEDS: ZINC SULFATE 50 MG CAPSULE PO SCH (09:27)
[2022-01-07] MEDS: DOCUSATE SODIUM 100 MG CAPSULE PO SCH ×2 (09:27→21:39)
[2022-01-07] MEDS: POLYETHYLENE GLYCOL 3350 17 GM PACKET PO SCH (09:27)
[2022-01-07] MEDS: VITAMIN D3 25 MCG TABLET PO SCH (09:28)
--- NOTE | 2022-01-07 09:49 | XRay Report ---
HISTORY: Hypoxia, follow-up pulmonary infiltrates FINDINGS: There is a moderately severe diffuse alveolar infiltrates throughout the right lung. The greatest consolidation is located centrally in the right upper lobe. A much more subtle interstitial infiltrate is present in the left upper lobe and above the left costophrenic sulcus. Minor pleural thickening is seen above the right costophrenic sulcus. The heart size is normal. The pulmonary vessels are obscured by the infiltrates. Dextroscoliotic curvature is present in the midthoracic spine. Comparison with the recent chest CT done on 01/05/22 shows no change. IMPRESSION: Persistent bilateral pneumonia, right worse than left Interpreted and Authenticated by: Cody Bernal 01/07/22
[2022-01-07] MEDS ORDERED: HYDROCORTISONE SOD SUCC 100 MG VIAL IV ONE (10:01)
--- NOTE | 2022-01-07 11:18 | Internal Med Progress Note ---
SUBJECTIVE Subjective Patient information: Note initiated : 01/07/22 at 11:10 am Service Date, if different from initiated Date: [] Patient: Bianka Peterson a 76 y/o F admitted on 01/05/22 for Shortness of breath. Chief Complaint: [] Principal diagnosis: shortness of breath Interval history: Ms. Peterson is a 76 year old female with a history of chronic kidney disease stage III, concern for possible interstitial lung disease, recent right hip periprosthetic fracture status post ORIF in November, who has been in a prison facility following surgery for rehab. Present presented to the emergency department for shortness of breath that started the week prior to admission. While at the SNF, the patient was started on Lasix for bilateral lower extremity edema. The patient also recently had a CT chest without contrast that showed right diffuse groundglass alveolar infiltrates involving the right upper, right middle and right lower lobe. There was a small left upper lobe infiltrate. The patient was recently seen in the emergency department for epistaxis that resolved after cauterization in the emergency department. In the emergency department on the day of hospital admission, the patient requir ed 6 L/min oxygen supplementation. The patient had leukocytosis however was afebrile and did not have a cough. Hemoglobin is lower than 2 days prior to admission at 7.6 down from 8.9. NT pro BNP was elevated at 1512. EKG did not show any acute ischemic changes, troponin was normal. The patient does have bilateral lower extremity, right greater than left and received a dose of IV Lasix in the emergency department. Hospital medicine was consulted to admit the patient for acute hypoxic respiratory failure. I discussed the plan of admission with the patient and family members at the bedside, all questions answered to the best my ability. We discussed CODE STATUS in detail, the patient will discuss this with her family prior to making a decision. 01/06 Much better today, mycoplasma IgM positive. CTA chest was negative for PE, showed predominantly right sided diffuse infiltrates. PANTHER and Respiratory panel negative. MRSA nasal PCR negative. Continue levofloxacin IV today. Continues to require about 6 L/min oxygen supplementation. Started dysphagia diet, awaiting speech evaluating. 01/07 Does not feel as good today as yesterday, chest xray ordered. Started on stress does hydrocortisone as the patient was receiving prednisone 20 mg daily prior to admission for an unknown duration. Speech continued dysphagia diet, mildly thick liquids. Continue Levofloxacin IV. TTE pending. Physical exam Head: Atraumatic, normal inspection. Eyes: normal appearance, no scleral icterus. Neck: full ROM Respiratory: Appears to be in respiratory distress, respiratory rate in the 30s, 6 L/min oxygen supplementation, crackles predominantly on the right lung bell. Cardiovascular: Regular tachycardia, S1, S2. GI/Abdominal: soft, nontender, no guarding. Extremities: Tenderness over recent right hip surgical sites, surgical incisions appear to be healing well. Neurological: CN II-XII intact, intact motor, intact sensation. Psychiatric: normal mood, intermittent confusion. Skin: warm, normal color Constitutional Vitals: Vital Signs Temp Pulse Resp BP Pulse Ox 98.2 F 88 17 131/77 100 01/07/22 08:01 01/06/22 06:18 01/07/22 10:01 01/07/22 10:01 01/07/22 10:01 Period Temp Pulse Resp BP Sys/Ortiz Pulse Ox Last 24 Hr 97.4 F-98.2 F 14-32 123-160/75-108 91-100 Intake and Output 01/06/22 01/07/22 01/07/22 21:59 05:59 13:59 Intake Total 510 Output Total 200 Balance 510 -200 Weight 60.555 kg Intake & Output: Intake & Output 01/06/22 01/07/22 01/07/22 21:59 05:59 13:59 Intake Total 510 Output Total 200 Balance 510 -200 Weight 60.555 kg Intake: IV 150 Oral 360 Output: Void Amount 200 Other: Meal Dinner Percent of Meal Consumed 25% Feeding Ability Independent Urine Appearance Clear Urine Color Bright Yellow Urine Odor Normal Stool Size Copious Moderate Stool Color Brown Brown Stool Consistency Soft Liquid Formed # Voids 1 # Bowel Movements 1 1 OBJ DATA Labs CBC & Chem 7: 01/07/22 05:22 01/07/22 05:21 Labs: Abnormal Lab Results 01/07/22 01/07/22 01/06/22 05:22 05:21 18:42 WBC 12.1 H RBC 3.30 L Hgb 9.0 L Hct 30.1 L POC Hct MCHC 29.9 L RDW 17.8 H Plt Count 623 H Neut % (Auto) Lymph % (Auto) 13.1 L [place] % (Auto) Lymph # (Auto) [place] # (Auto) 1.36 H Seg Neutrophils % Lymphocytes % Absolute Neutrophils 8.71 H Platelet Estimate RBC Morphology Polychromasia Hypochromasia Anisocytosis Carbon Dioxide Anion Gap Glucose 111 H POC Glucose Phosphorus Iron TIBC Transferrin % Sat GGT 249 H 226 H AST 35 H 32 H Alkaline Phosphatase 364 H 352 H Lactate Dehydrogenase 433 H 417 H C-Reactive Protein NT-Pro-B Natriuret Pep Albumin 3.0 L 2.8 L Globulin 3.8 H Albumin/Globulin Ratio 0.8 L 0.8 L Procalcitonin Urine Protein Mycoplasma pneumon IgM 01/06/22 01/06/22 01/06/22 18:42 05:30 05:30 WBC 12.5 H RBC 2.85 L 3.05 L Hgb 7.9 L 8.5 L Hct 26.0 L 27.4 L POC Hct MCHC 30.4 L RDW 18.0 H 17.9 H Plt Count 572 H 644 H Neut % (Auto) Lymph % (Auto) 12.2 L [place] % (Auto) 12.1 H Lymph # (Auto) 1.32 L [place] # (Auto) 1.31 H Seg Neutrophils % 96 H Lymphocytes % 2 L Absolute Neutrophils Platelet Estimate Markedly increased A RBC Morphology Abnormal A Polychromasia Occ A Hypochromasia Few A Anisocytosis 1+ A Carbon Dioxide Anion Gap Glucose POC Glucose Phosphorus Iron TIBC Transferrin % Sat GGT 246 H AST Alkaline Phosphatase 397 H Lactate Dehydrogenase 435 H C-Reactive Protein NT-Pro-B Natriuret Pep Albumin 3.0 L Globulin 3.8 H Albumin/Globulin Ratio 0.8 L Procalcitonin Urine Protein Mycoplasma pneumon IgM 01/05/22 01/05/22 01/05/22 21:25 14:58 13:20 WBC RBC Hgb 7.6 L Hct POC Hct MCHC RDW Plt Count Neut % (Auto) Lymph % (Auto) [place] % (Auto) Lymph # (Auto) [place] # (Auto) Seg Neutrophils % Lymphocytes % Absolute Neutrophils Platelet Estimate RBC Morphology Polychromasia Hypochromasia Anisocytosis Carbon Dioxide 20 L Anion Gap 19.0 H Glucose 119 H POC Glucose Phosphorus 2.3 L Iron TIBC Transferrin % Sat GGT 236 H AST 37 H Alkaline Phosphatase 386 H Lactate Dehydrogenase 421 H C-Reactive Protein NT-Pro-B Natriuret Pep Albumin 3.1 L Globulin Albumin/Globulin Ratio 0.9 L Procalcitonin Urine Protein Trace A Mycoplasma pneumon IgM 01/05/22 01/05/22 01/05/22 13:20 13:20 13:20 WBC RBC Hgb Hct POC Hct MCHC RDW Plt Count Neut % (Auto) Lymph % (Auto) [place] % (Auto) Lymph # (Auto) [place] # (Auto) Seg Neutrophils % Lymphocytes % Absolute Neutrophils Platelet Estimate RBC Morphology Polychromasia Hypochromasia Anisocytosis Carbon Dioxide Anion Gap Glucose POC Glucose Phosphorus Iron 12 L TIBC Transferrin % Sat GGT AST Alkaline Phosphatase Lactate Dehydrogenase C-Reactive Protein NT-Pro-B Natriuret Pep Albumin Globulin Albumin/Globulin Ratio Procalcitonin 0.11 H Urine Protein Mycoplasma pneumon IgM Positive A 01/05/22 01/05/22 01/05/22 13:20 13:20 13:20 WBC 13.3 H RBC 2.70 L Hgb 7.6 L Hct 24.4 L POC Hct 27 L MCHC RDW 17.9 H Plt Count 599 H Neut % (Auto) 80.5 H Lymph % (Auto) 8.7 L [place] % (Auto) Lymph # (Auto) 1.16 L [place] # (Auto) 1.30 H Seg Neutrophils % Lymphocytes % Absolute Neutrophils 10.68 H Platelet Estimate RBC Morphology Polychromasia Hypochromasia Anisocytosis Carbon Dioxide Anion Gap Glucose POC Glucose 118 H Phosphorus Iron 10 L TIBC 211 L Transferrin % Sat 5 L GGT AST Alkaline Phosphatase Lactate Dehydrogenase C-Reactive Protein 14.80 H NT-Pro-B Natriuret Pep 1512.0 H Albumin Globulin Albumin/Globulin Ratio Procalcitonin Urine Protein Mycoplasma pneumon IgM Meds: Medications Acetaminophen (Acetaminophen 325 Mg Tablet) 650 mg PO Q6HP PRN; Protocol PRN Reason: Per Pain Protocol/Fever > 101 Last Admin: 01/06/22 23:06 Dose: 650 mg Documented by: Hydrocodone Bitart/Acetaminophen (Hydrocodone/Apap 5/325mg Tablet) 1 tab PO Q4HP PRN; Protocol PRN Reason: Per Pain Protocol Last Admin: 01/07/22 09:26 Dose: 1 tab Documented by: Cyanocobalamin (Cyanocobalamin (Vitamin B-12) 500 Mcg Tablet) 1,000 mcg PO DAILY [facility] Last Admin: 01/07/22 09:25 Dose: 1,000 mcg Documented by: Docusate Sodium (Docusate Sodium 100 Mg Capsule) 100 mg PO BID [facility] Last Admin: 01/07/22 09:27 Dose: Not Given Documented by: Enoxaparin Sodium (Enoxaparin 40 Mg/0.4 Ml Syringe) 40 mg SQ DAILY [facility] Last Admin: 01/07/22 09:25 Dose: 40 mg Documented by: Fluoxetine HCl (Fluoxetine Hcl 20 Mg Capsule) 20 mg PO QDAY [facility] Last Admin: 01/07/22 09:26 Dose: 20 mg Documented by: Hydrocortisone Sodium Succinate (Hydrocortisone Sod Succ 100 Mg Vial) 50 mg IV Q6 [facility] Stop: 01/08/22 06:01 Levofloxacin (Levaquin) 750 mg in 150 mls @ 100 mls/hr IV Q24H [facility]; Protocol Stop: 01/10/22 19:28 Last Admin: 01/07/22 09:00 Dose: 100 mls/hr Documented by: Lactulose (Lactulose 20 Gm/30 Ml Oral.[place]) 10 gm PO DAILYP PRN PRN Reason: Constipation Melatonin (Melatonin 3 Mg Tablet) 6 mg PO [facility] Last Admin: 01/06/22 20:59 Dose: 6 mg Documented by: Methocarbamol (Methocarbamol 750 Mg Tablet) 750 mg PO Q8HP PRN PRN Reason: muscle spasms Last Admin: 01/07/22 05:53 Dose: 750 mg Documented by: Ondansetron HCl (Ondansetron 4 Mg/2 Ml Vial) 4 mg IV Q4HP PRN; Protocol PRN Reason: Nausea And Vomiting Polyethylene Glycol (Polyethylene Glycol 3350 17 Gm Packet) 17 gm PO QDAY [facility] Last Admin: 01/07/22 09:27 Dose: Not Given Documented by: Potassium Chloride (Potassium Chloride 10 Meq Tablet) 10 meq PO QAC [facility] Last Admin: 01/07/22 09:26 Dose: 10 meq Documented by: Senna (Sennosides 1 Tablet) 2 tab PO HSP PRN PRN Reason: Constipation Sodium Chloride (0.9 % Sodium Chloride 10 Ml Syringe) 10 ml IV Q8 [facility] Last Admin: 01/07/22 05:11 Dose: 10 ml Documented by: Vitamin D (Vitamin D3 25 Mcg Tablet) 25 mcg PO DAILY [facility] Last Admin: 01/07/22 09:26 Dose: 25 mcg Documented by: Vitamin D (Vitamin D3 25 Mcg Tablet) 100 mcg PO DAILY [facility] Last Admin: 01/07/22 09:28 Dose: 100 mcg Documented by: Zinc Sulfate (Zinc Sulfate 50 Mg Capsule) 50 mg PO DAILY [facility] Last Admin: 01/07/22 09:27 Dose: 50 mg Documented by: A/P Narrative A/P Narrative: Assessment: 76 year old female with a history of chronic kidney disease stage III, history of possible interstitial lung disease, recent right hip periprosthetic fracture status post ORIF in November, who has been in a prison facility following surgery for rehab now admitted for acute hypoxic respiratory failure secondary to pneumonia. Pneumonia workup was positive for Mycoplasma IgM. PANTHER and Respiratory panel were negative. The patient does not have a productive cough. #Acute hypoxic respiratory failure #Community acquired pneumonia #Positive Mycoplasma IgM #Concern for possible heart failure #Concern for dysphagia #Recent right hip fracture status post ORIF #Acute on chronic anemia #History of possible interstitial lung disease #Generalized weakness Plan -Continue Levofloxacin IV daily for now. -Oxygen supplementation. -Stress dose Hydrocortisone IV. -Mycoplasma PCR pending. -Follow blood cultures, hemoglobin level. -Transthoracic echocardiogram report pending. -Continue home Fluoxetine, Baclofen. -Analgesics prn. -Bowel regimen. -Holding home lasix for now, appears euvolemic. -Speech consult. -PT and OT consult. -Dysphagia diet. -DVT prophylaxis: Lovenox -Code status: Full -Disposition: Probably SNF for rehab. Time Spent With Patient Time: Total time spent is greater than 50% in coordination of care (as documented) at patient's floor/unit and/or counseling patient:
[2022-01-07] MEDS: ACETAMINOPHEN 325 MG TABLET PO PRN ×2 (13:09→19:53)
--- NOTE | 2022-01-07 14:55 | Internal Med Progress Note ---
SUBJECTIVE Subjective Patient information: Note initiated : 01/07/22 at 2:49 pm Service Date, if different from initiated Date: [] Patient: Bianka Peterson a 76 y/o F admitted on 01/05/22 for Shortness of breath. Chief Complaint: [] Principal diagnosis: shortness of breath Interval history: Ms. Peterson is a 76 year old female with a history of chronic kidney disease stage III, concern for possible interstitial lung disease, recent right hip periprosthetic fracture status post ORIF in November, who has been in a senior care facility following surgery for rehab. Present presented to the emergency department for shortness of breath that started the week prior to admission. While at the SNF, the patient was started on Lasix for bilateral lower extremity edema. The patient also recently had a CT chest without contrast that showed right diffuse groundglass alveolar infiltrates involving the right upper, right middle and right lower lobe. There was a small left upper lobe infiltrate. The patient was recently seen in the emergency department for epistaxis that resolved after cauterization in the emergency department. In the emergency department on the day of hospital admission, the patient required 6 L/min oxygen supplementation. The patient had leukocytosis however was afebrile and did not have a cough. Hemoglobin is lower than 2 days prior to admission at 7.6 down from 8.9. NT pro BNP was elevated at 1512. EKG did not show any acute ischemic changes, troponin was normal. The patient does have bilateral lower extremity, right greater than left and received a dose of IV Lasix in the emergency department. Hospital medicine was consulted to admit the patient for acute hypoxic respiratory failure. I discussed the plan of admission with the patient and family members at the bedside, all questions answered to the best my ability. We discussed CODE STATUS in detail, the patient will discuss this with her family prior to making a decision. 01/06 Much better today, mycoplasma IgM positive. CTA chest was negative for PE, showed predominantly right sided diffuse infiltrates. PANTHER and Respiratory panel negative. MRSA nasal PCR negative. Continue levofloxacin IV today. Continues to require about 6 L/min oxygen supplementation. Started dysphagia diet, awaiting speech evaluating. 01/07 Does not feel as good today as yesterday, chest xray ordered. Started on stress does hydrocortisone as the patient was receiving prednisone 20 mg daily prior to admission for an unknown duration. Speech continued dysphagia diet, mildly thick liquids. Continue Levofloxacin IV. TTE pending. 01/08 Constitutional Vitals: Vital Signs Temp Pulse Resp BP Pulse Ox 98.4 F 88 18 114/69 89 L 01/07/22 12:01 01/06/22 06:18 01/07/22 14:25 01/07/22 14:00 01/07/22 14:25 Period Temp Pulse Resp BP Sys/Ortiz Pulse Ox Last 24 Hr 97.4 F-98.4 F 14-32 99-160/63-108 89-100 Intake and Output 01/07/22 01/07/22 01/07/22 05:59 13:59 21:59 Intake Total 150 240 Output Total 200 Balance -50 240 Intake & Output: Intake & Output 01/07/22 01/07/22 01/07/22 05:59 13:59 21:59 Intake Total 150 240 Output Total 200 Balance -50 240 Intake: IV 150 Oral 240 Output: Void Amount 200 Other: Meal Lunch Percent of Meal Consumed 50% Feeding Ability Independent Urine Appearance Clear Urine Color Bright Yellow Urine Odor Normal Stool Size Moderate Stool Color Brown Stool Consistency Liquid # Voids 1 # Bowel Movements 1 Exam: General: Alert, Awake, No acute Distress Eyes/N/T: EOMI, Head/Neck: neck supple, CV: RRR, No murmurs, Pulm: rales R>L, no wheezing Abd: soft, nontender, +BS x4 Ext: no clubbing/cyanosis/edema Neuro: Alert, no focal deficits, moves all extremities, Skin: warm/dry Psychiatric: normal mood, intermittent confusion OBJ DATA Labs CBC & Chem 7: 01/07/22 05:22 01/07/22 05:21 Labs: Abnormal Lab Results 01/07/22 01/07/22 01/06/22 05:22 05:21 18:42 WBC 12.1 H RBC 3.30 L Hgb 9.0 L Hct 30.1 L POC Hct MCHC 29.9 L RDW 17.8 H Plt Count 623 H Neut % (Auto) Lymph % (Auto) 13.1 L [place] % (Auto) Lymph # (Auto) [place] # (Auto) 1.36 H Seg Neutrophils % Lymphocytes % Absolute Neutrophils 8.71 H Platelet Estimate RBC Morphology Polychromasia Hypochromasia Anisocytosis Carbon Dioxide Anion Gap Glucose 111 H POC Glucose Phosphorus Iron TIBC Transferrin % Sat GGT 249 H 226 H AST 35 H 32 H Alkaline Phosphatase 364 H 352 H Lactate Dehydrogenase 433 H 417 H C-Reactive Protein NT-Pro-B Natriuret Pep Albumin 3.0 L 2.8 L Globulin 3.8 H Albumin/Globulin Ratio 0.8 L 0.8 L Procalcitonin Urine Protein Mycoplasma pneumon IgM 01/06/22 01/06/22 01/06/22 18:42 05:30 05:30 WBC 12.5 H RBC 2.85 L 3.05 L Hgb 7.9 L 8.5 L Hct 26.0 L 27.4 L POC Hct MCHC 30.4 L RDW 18.0 H 17.9 H Plt Count 572 H 644 H Neut % (Auto) Lymph % (Auto) 12.2 L [place] % (Auto) 12.1 H Lymph # (Auto) 1.32 L [place] # (Auto) 1.31 H Seg Neutrophils % 96 H Lymphocytes % 2 L Absolute Neutrophils Platelet Estimate Markedly increased A RBC Morphology Abnormal A Polychromasia Occ A Hypochromasia Few A Anisocytosis 1+ A Carbon Dioxide Anion Gap Glucose POC Glucose Phosphorus Iron TIBC Transferrin % Sat GGT 246 H AST Alkaline Phosphatase 397 H Lactate Dehydrogenase 435 H C-Reactive Protein NT-Pro-B Natriuret Pep Albumin 3.0 L Globulin 3.8 H Albumin/Globulin Ratio 0.8 L Procalcitonin Urine Protein Mycoplasma pneumon IgM 01/05/22 01/05/22 01/05/22 21:25 14:58 13:20 WBC RBC Hgb 7.6 L Hct POC Hct MCHC RDW Plt Count Neut % (Auto) Lymph % (Auto) [place] % (Auto) Lymph # (Auto) [place] # (Auto) Seg Neutrophils % Lymphocytes % Absolute Neutrophils Platelet Estimate RBC Morphology Polychromasia Hypochromasia Anisocytosis Carbon Dioxide 20 L Anion Gap 19.0 H Glucose 119 H POC Glucose Phosphorus 2.3 L Iron TIBC Transferrin % Sat GGT 236 H AST 37 H Alkaline Phosphatase 386 H Lactate Dehydrogenase 421 H C-Reactive Protein NT-Pro-B Natriuret Pep Albumin 3.1 L Globulin Albumin/Globulin Ratio 0.9 L Procalcitonin Urine Protein Trace A Mycoplasma pneumon IgM 01/05/22 01/05/22 01/05/22 13:20 13:20 13:20 WBC RBC Hgb Hct POC Hct MCHC RDW Plt Count Neut % (Auto) Lymph % (Auto) [place] % (Auto) Lymph # (Auto) [place] # (Auto) Seg Neutrophils % Lymphocytes % Absolute Neutrophils Platelet Estimate RBC Morphology Polychromasia Hypochromasia Anisocytosis Carbon Dioxide Anion Gap Glucose POC Glucose Phosphorus Iron 12 L TIBC Transferrin % Sat GGT AST Alkaline Phosphatase Lactate Dehydrogenase C-Reactive Protein NT-Pro-B Natriuret Pep Albumin Globulin Albumin/Globulin Ratio Procalcitonin 0.11 H Urine Protein Mycoplasma pneumon IgM Positive A 01/05/22 01/05/22 01/05/22 13:20 13:20 13:20 WBC 13.3 H RBC 2.70 L Hgb 7.6 L Hct 24.4 L POC Hct 27 L MCHC RDW 17.9 H Plt Count 599 H Neut % (Auto) 80.5 H Lymph % (Auto) 8.7 L [place] % (Auto) Lymph # (Auto) 1.16 L [place] # (Auto) 1.30 H Seg Neutrophils % Lymphocytes % Absolute Neutrophils 10.68 H Platelet Estimate RBC Morphology Polychromasia Hypochromasia Anisocytosis Carbon Dioxide Anion Gap Glucose POC Glucose 118 H Phosphorus Iron 10 L TIBC 211 L Transferrin % Sat 5 L GGT AST Alkaline Phosphatase Lactate Dehydrogenase C-Reactive Protein 14.80 H NT-Pro-B Natriuret Pep 1512.0 H Albumin Globulin Albumin/Globulin Ratio Procalcitonin Urine Protein Mycoplasma pneumon IgM Meds: Medications Acetaminophen (Acetaminophen 325 Mg Tablet) 650 mg PO Q6HP PRN; Protocol PRN Reason: Per Pain Protocol/Fever > 101 Last Admin: 01/07/22 13:09 Dose: 650 mg Documented by: Hydrocodone Bitart/Acetaminophen (Hydrocodone/Apap 5/325mg Tablet) 1 tab PO Q4HP PRN; Protocol PRN Reason: Per Pain Protocol Last Admin: 01/07/22 14:02 Dose: 1 tab Documented by: Cyanocobalamin (Cyanocobalamin (Vitamin B-12) 500 Mcg Tablet) 1,000 mcg PO DAILY [facility] Last Admin: 01/07/22 09:25 Dose: 1,000 mcg Documented by: Docusate Sodium (Docusate Sodium 100 Mg Capsule) 100 mg PO BID [facility] Last Admin: 01/07/22 09:27 Dose: Not Given Documented by: Enoxaparin Sodium (Enoxaparin 40 Mg/0.4 Ml Syringe) 40 mg SQ DAILY [facility] Last Admin: 01/07/22 09:25 Dose: 40 mg Documented by: Fluoxetine HCl (Fluoxetine Hcl 20 Mg Capsule) 20 mg PO QDAY [facility] Last Admin: 01/07/22 09:26 Dose: 20 mg Documented by: Hydrocortisone Sodium Succinate (Hydrocortisone Sod Succ 100 Mg Vial) 50 mg IV Q6 [facility] Stop: 01/08/22 06:01 Levofloxacin (Levaquin) 750 mg in 150 mls @ 100 mls/hr IV Q24H [facility]; Protocol Stop: 01/10/22 19:28 Last Infusion: 01/07/22 10:30 Dose: Infused Documented by: Lactulose (Lactulose 20 Gm/30 Ml Oral.[place]) 10 gm PO DAILYP PRN PRN Reason: Constipation Melatonin (Melatonin 3 Mg Tablet) 6 mg PO HS [facility] Last Admin: 01/06/22 20:59 Dose: 6 mg Documented by: Methocarbamol (Methocarbamol 750 Mg Tablet) 750 mg PO Q8HP PRN PRN Reason: muscle spasms Last Admin: 01/07/22 14:02 Dose: 750 mg Documented by: Ondansetron HCl (Ondansetron 4 Mg/2 Ml Vial) 4 mg IV Q4HP PRN; Protocol PRN Reason: Nausea And Vomiting Polyethylene Glycol (Polyethylene Glycol 3350 17 Gm Packet) 17 gm PO QDAY [facility] Last Admin: 01/07/22 09:27 Dose: Not Given Documented by: Potassium Chloride (Potassium Chloride 10 Meq Tablet) 10 meq PO QAMCC [facility] Last Admin: 01/07/22 09:26 Dose: 10 meq Documented by: Senna (Sennosides 1 Tablet) 2 tab PO HSP PRN PRN Reason: Constipation Sodium Chloride (0.9 % Sodium Chloride 10 Ml Syringe) 10 ml IV Q8 [facility] Last Admin: 01/07/22 14:02 Dose: 10 ml Documented by: Vitamin D (Vitamin D3 25 Mcg Tablet) 25 mcg PO DAILY [facility] Last Admin: 01/07/22 09:26 Dose: 25 mcg Documented by: Vitamin D (Vitamin D3 25 Mcg Tablet) 100 mcg PO DAILY [facility] Last Admin: 01/07/22 09:28 Dose: 100 mcg Documented by: Zinc Sulfate (Zinc Sulfate 50 Mg Capsule) 50 mg PO DAILY [facility] Last Admin: 01/07/22 09:27 Dose: 50 mg Documented by: A/P Narrative A/P Narrative: A: #Acute hypoxic respiratory failure: 2/2 CAP + likely Aspiration + underlying fibrosis -echo unimpressive -3-5L NC #CAP & likely Aspiration: -Positive Mycoplasma IgM #h/o possible Interstitial Lung Disease: #Concern for Dysphagia: #Recent Right Hip Fx s/p ORIF (12/05/2021) #Anemia, acute on chronic: KARLOS #Generalized weakness: #Depression: #why on prednisone, ?chronic: Plan -Continue Levofloxacin/Flagyl IV for now. pending BC -Oxygen supplementation (wean) -Stress dose IV Hydrocortisone -Mycoplasma PCR pending -Holding home lasix for now, appears euvolemic -dysphagia diet per Speech -iron supp -PT and OT consult -Disposition: Probably SNF for rehab. 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
[2022-01-07] MEDS: IRON POLYSACCHARIDE COMPLEX 150 MG CAPSULE PO SCH ×2 (18:09→21:39)
[2022-01-07] MEDS: HYDROCORTISONE SOD SUCC 100 MG VIAL IV SCH ×2 (18:13)
[2022-01-07] MEDS: metroNIDAZOLE 500 MG TABLET PO SCH (21:39)
[2022-01-07] MEDS: MELATONIN 3 MG TABLET PO SCH (21:39)
[2022-01-08] MEDS: HYDROCORTISONE SOD SUCC 100 MG VIAL IV SCH ×2 (00:02→05:26)
[2022-01-08] MEDS: HYDROcodone/APAP 5/325MG TABLET PO PRN ×2 (02:48→07:14)
[2022-01-08] MEDS: ONDANSETRON 4 MG/2 ML VIAL IV PRN ×2 (02:55→07:14)
[2022-01-08] MEDS: 0.9 % SODIUM CHLORIDE 10 ML SYRINGE IV SCH ×3 (05:26→22:00)
[2022-01-08] MEDS: METHOCARBAMOL 750 MG TABLET PO PRN ×3 (05:26→22:34)
[2022-01-08] MEDS: metroNIDAZOLE 500 MG TABLET PO SCH ×3 (05:26→21:00)
[2022-01-08 06:54] LABS: Basophils # (Auto) 0.03 K/mcL (0.00-0.30); Basophils % (Auto) 0.2 % (0.0-2.0); Eosinophils # (Auto) 0.04 K/mcL (0.00-0.70); Eosinophils % (Auto) 0.2 % (0.0-7.0); Hematocrit 28.9 % (34.1-44.9); Hemoglobin 8.9 g/dL (11.2-15.7); Lymphocytes # (Auto) 2.27 K/mcL (1.50-4.80); Mean Corpuscular HGB Conc 30.8 g/dL (31.0-36.0); Mean Platelet Volume 9.9 fL (7.4-10.4); Monocytes # (Auto) 1.62 K/mcL (0.10-0.90); Monocytes % (Auto) 8.5 % (1.0-12.0); Neutrophils % (Auto) 79.1 % (38.0-78.0); Platelet Count 593 K/mcL (140-440); RBC 3.21 M/mcL (3.59-5.38); Red Cell Distribution Width 17.7 % (11.5-14.5)
[2022-01-08 07:16] LABS: proBNP 697.2 pg/mL (<450.0)
[2022-01-08 07:22] LABS: ALT/SGPT 19 U/L (<40); AST/SGOT 39 U/L (<32); Albumin/Globulin Ratio 0.8 (1.0-2.3); Alkaline Phosphatase 321 U/L (39-117); Bilirubin,Direct < 0.2 mg/dL (0-0.3); Bilirubin,Total 0.2 mg/dL (0.1-1.0); Blood Urea Nitrogen 23 mg/dL (8-23); Calcium 9.2 mg/dL (8.6-10.4); Carbon Dioxide 26 mmol/L (22-30); Chloride 99 mmol/L (96-108); Globulin 3.8 gm/dL (2.2-3.7); Glomerular Filtration Rate 71; Glucose 112 mg/dL (70-105); Lactate Dehydrogenase 477 U/L (135-225); Phosphorous 2.9 mg/dL (2.5-4.5); Triglycerides 80 mg/dL (<150); Uric Acid 4.8 mg/dL (2.5-8.0)
--- NOTE | 2022-01-08 08:07 | Internal Med Progress Note ---
SUBJECTIVE Subjective Patient information: Note initiated : 01/08/22 at 8:06 am Service Date, if different from initiated Date: [] Patient: Bianka Peterson a 76 y/o F admitted on 01/05/22 for Shortness of breath. Chief Complaint: [] Principal diagnosis: shortness of breath Interval history: Ms. Peterson is a 76 year old female with a history of chronic kidney disease stage III, concern for possible interstitial lung disease, recent right hip periprosthetic fracture status post ORIF in November, who has been in a [facility] facility following surgery for rehab. Present presented to the emergency department for shortness of breath that started the week prior to admission. While at the SNF, the patient was started on Lasix for bilateral lower extremity edema. The patient also recently had a CT chest without contrast that showed right diffuse groundglass alveolar infiltrates involving the right upper, right middle and right lower lobe. There was a small left upper lobe infiltrate. The patient was recently seen in the emergency department for epistaxis that resolved after cauterization in the emergency department. In the emergency department on the day of hospital admission, the patient required 6 L/min oxygen supplementation. The patient had leukocytosis however was afebrile and did not have a cough. Hemoglobin is lower than 2 days prior to admission at 7.6 down from 8.9. NT pro BNP was elevated at 1512. EKG did not show any acute ischemic changes, troponin was normal. The patient does have bilateral lower extremity, right greater than left and received a dose of IV Lasix in the emergency department. Hospital medicine was consulted to admit the patient for acute hypoxic respiratory failure. I discussed the plan of admission with the patient and family members at the bedside, all questions answered to the best my ability. We discussed CODE STATUS in detail, the patient will discuss this with her family prior to making a decision. 01/06 Much better today, mycoplasma IgM positive. CTA chest was negative for PE, showed predominantly right sided diffuse infiltrates. PANTHER and Respiratory panel negative. MRSA nasal PCR negative. Continue levofloxacin IV today. Continues to require about 6 L/min oxygen supplementation. Started dysphagia diet, awaiting speech evaluating. 01/07 Does not feel as good today as yesterday, chest xray ordered. Started on stress does hydrocortisone as the patient was receiving prednisone 20 mg daily prior to admission for an unknown duration. Speech continued dysphagia diet, mildly thick liquids. Continue Levofloxacin IV. TTE pending. 01/08 Patient has chronic hip pain and does not like the [place], will try tramadol. Oxygen requirement fluctuating between 3 and 8 L. N.p.o. until seen by speech therapy. Occasional cough and shortness of breath Complained of upset stomach and some nausea but no vomiting. Leukocytosis likely from high-dose steroids yesterday. Review of Systems: denies headache/fever/chills/vomiting/chest or abdominal pain/diarrhea. Otherwise see above. Constitutional Vitals: Vital Signs Temp Pulse Resp BP Pulse Ox 98.4 F 88 25 H 138/82 99 01/08/22 04:00 01/06/22 06:18 01/08/22 06:01 01/08/22 06:01 01/08/22 06:01 Period Temp Pulse Resp BP Sys/Ortiz Pulse Ox Last 24 Hr 97.7 F-98.4 F 17-32 83-157/56-108 89-100 Intake and Output 01/07/22 01/08/22 01/08/22 21:59 05:59 13:59 Intake Total 490 240 Output Total 350 100 Balance 490 -110 -100 Weight 59.591 kg Intake & Output: Intake & Output 01/07/22 01/08/22 01/08/22 21:59 05:59 13:59 Intake Total 490 240 Output Total 350 100 Balance 490 -110 -100 Weight 59.591 kg Intake: Oral 490 240 Output: Void Amount 350 100 Other: Meal Dinner Percent of Meal Consumed 25% Feeding Ability Independent Urine Appearance Clear Clear Urine Color Dark Yellow Dark Yellow Stool Size Small Small Stool Color Brown Brown Stool Consistency Soft Soft # Voids 1 # Bowel Movements 1 1 Exam: General: Alert, Awake, No acute Distress Eyes/N/T: EOMI, Head/Neck: neck supple, CV: Tacky but regular, No murmurs, Pulm: b/l fine rales, no wheezing Abd: soft, nontender, +BS x4 Ext: no clubbing/cyanosis/edema Neuro: Alert, no focal deficits, moves all extremities, Skin: warm/dry OBJ DATA Labs CBC & Chem 7: 01/08/22 05:35 01/08/22 05:35 Labs: Abnormal Lab Results 01/08/22 01/08/22 01/08/22 05:47 05:35 05:35 WBC 19.0 H RBC 3.21 L Hgb 8.9 L Hct 28.9 L POC Hct MCHC 30.8 L RDW 17.7 H Plt Count 593 H Neut % (Auto) 79.1 H Lymph % (Auto) 12.0 L Giles % (Auto) Lymph # (Auto) Giles # (Auto) 1.62 H Seg Neutrophils % Lymphocytes % Absolute Neutrophils 15.00 H Platelet Estimate RBC Morphology Polychromasia Hypochromasia Anisocytosis Carbon Dioxide Anion Gap Glucose 112 H POC Glucose Phosphorus Iron TIBC Transferrin % Sat GGT 231 H AST 39 H Alkaline Phosphatase 321 H Lactate Dehydrogenase 477 H C-Reactive Protein 10.30 H NT-Pro-B Natriuret Pep 697.2 H Albumin 3.0 L Globulin 3.8 H Albumin/Globulin Ratio 0.8 L Procalcitonin Urine Protein Mycoplasma pneumon IgM 01/07/22 01/07/22 01/06/22 05:22 05:21 18:42 WBC 12.1 H RBC 3.30 L Hgb 9.0 L Hct 30.1 L POC Hct MCHC 29.9 L RDW 17.8 H Plt Count 623 H Neut % (Auto) Lymph % (Auto) 13.1 L Giles % (Auto) Lymph # (Auto) Giles # (Auto) 1.36 H Seg Neutrophils % Lymphocytes % Absolute Neutrophils 8.71 H Platelet Estimate RBC Morphology Polychromasia Hypochromasia Anisocytosis Carbon Dioxide Anion Gap Glucose 111 H POC Glucose Phosphorus Iron TIBC Transferrin % Sat GGT 249 H 226 H AST 35 H 32 H Alkaline Phosphatase 364 H 352 H Lactate Dehydrogenase 433 H 417 H C-Reactive Protein NT-Pro-B Natriuret Pep Albumin 3.0 L 2.8 L Globulin 3.8 H Albumin/Globulin Ratio 0.8 L 0.8 L Procalcitonin Urine Protein Mycoplasma pneumon IgM 01/06/22 01/06/22 01/06/22 18:42 05:30 05:30 WBC 12.5 H RBC 2.85 L 3.05 L Hgb 7.9 L 8.5 L Hct 26.0 L 27.4 L POC Hct MCHC 30.4 L RDW 18.0 H 17.9 H Plt Count 572 H 644 H Neut % (Auto) Lymph % (Auto) 12.2 L Giles % (Auto) 12.1 H Lymph # (Auto) 1.32 L Giles # (Auto) 1.31 H Seg Neutrophils % 96 H Lymphocytes % 2 L Absolute Neutrophils Platelet Estimate Markedly increased A RBC Morphology Abnormal A Polychromasia Occ A Hypochromasia Few A Anisocytosis 1+ A Carbon Dioxide Anion Gap Glucose POC Glucose Phosphorus Iron TIBC Transferrin % Sat GGT 246 H AST Alkaline Phosphatase 397 H Lactate Dehydrogenase 435 H C-Reactive Protein NT-Pro-B Natriuret Pep Albumin 3.0 L Globulin 3.8 H Albumin/Globulin Ratio 0.8 L Procalcitonin Urine Protein Mycoplasma pneumon IgM 01/05/22 01/05/22 01/05/22 21:25 14:58 13:20 WBC RBC Hgb 7.6 L Hct POC Hct MCHC RDW Plt Count Neut % (Auto) Lymph % (Auto) Giles % (Auto) Lymph # (Auto) Giles # (Auto) Seg Neutrophils % Lymphocytes % Absolute Neutrophils Platelet Estimate RBC Morphology Polychromasia Hypochromasia Anisocytosis Carbon Dioxide 20 L Anion Gap 19.0 H Glucose 119 H POC Glucose Phosphorus 2.3 L Iron TIBC Transferrin % Sat GGT 236 H AST 37 H Alkaline Phosphatase 386 H Lactate Dehydrogenase 421 H C-Reactive Protein NT-Pro-B Natriuret Pep Albumin 3.1 L Globulin Albumin/Globulin Ratio 0.9 L Procalcitonin Urine Protein Trace A Mycoplasma pneumon IgM 01/05/22 01/05/22 01/05/22 13:20 13:20 13:20 WBC RBC Hgb Hct POC Hct MCHC RDW Plt Count Neut % (Auto) Lymph % (Auto) Giles % (Auto) Lymph # (Auto) Giles # (Auto) Seg Neutrophils % Lymphocytes % Absolute Neutrophils Platelet Estimate RBC Morphology Polychromasia Hypochromasia Anisocytosis Carbon Dioxide Anion Gap Glucose POC Glucose Phosphorus Iron 12 L TIBC Transferrin % Sat GGT AST Alkaline Phosphatase Lactate Dehydrogenase C-Reactive Protein NT-Pro-B Natriuret Pep Albumin Globulin Albumin/Globulin Ratio Procalcitonin 0.11 H Urine Protein Mycoplasma pneumon IgM Positive A 01/05/22 01/05/22 01/05/22 13:20 13:20 13:20 WBC 13.3 H RBC 2.70 L Hgb 7.6 L Hct 24.4 L POC Hct 27 L MCHC RDW 17.9 H Plt Count 599 H Neut % (Auto) 80.5 H Lymph % (Auto) 8.7 L Giles % (Auto) Lymph # (Auto) 1.16 L Giles # (Auto) 1.30 H Seg Neutrophils % Lymphocytes % Absolute Neutrophils 10.68 H Platelet Estimate RBC Morphology Polychromasia Hypochromasia Anisocytosis Carbon Dioxide Anion Gap Glucose POC Glucose 118 H Phosphorus Iron 10 L TIBC 211 L Transferrin % Sat 5 L GGT AST Alkaline Phosphatase Lactate Dehydrogenase C-Reactive Protein 14.80 H NT-Pro-B Natriuret Pep 1512.0 H Albumin Globulin Albumin/Globulin Ratio Procalcitonin Urine Protein Mycoplasma pneumon IgM Meds: Medications Acetaminophen (Acetaminophen 325 Mg Tablet) 650 mg PO Q6HP PRN; Protocol PRN Reason: Per Pain Protocol/Fever > 101 Last Admin: 01/07/22 19:53 Dose: 650 mg Documented by: Hydrocodone Bitart/Acetaminophen (Hydrocodone/Apap 5/325mg Tablet) 1 tab PO Q4HP PRN; Protocol PRN Reason: Per Pain Protocol Last Admin: 01/08/22 07:14 Dose: 1 tab Documented by: Cyanocobalamin (Cyanocobalamin (Vitamin B-12) 500 Mcg Tablet) 1,000 mcg PO DAILY [facility] Last Admin: 01/07/22 09:25 Dose: 1,000 mcg Documented by: Docusate Sodium (Docusate Sodium 100 Mg Capsule) 100 mg PO BID [facility] Last Admin: 01/07/22 21:39 Dose: Not Given Documented by: Enoxaparin Sodium (Enoxaparin 40 Mg/0.4 Ml Syringe) 40 mg SQ DAILY [facility] Last Admin: 01/07/22 09:25 Dose: 40 mg Documented by: Fluoxetine HCl (Fluoxetine Hcl 20 Mg Capsule) 20 mg PO QDAY [facility] Last Admin: 01/07/22 09:26 Dose: 20 mg Documented by: Levofloxacin (Levaquin) 750 mg in 150 mls @ 100 mls/hr IV Q24H [facility]; Protocol Stop: 01/10/22 19:28 Last Infusion: 01/07/22 10:30 Dose: Infused Documented by: Lactulose (Lactulose 20 Gm/30 Ml Oral.Alma) 10 gm PO DAILYP PRN PRN Reason: Constipation Melatonin (Melatonin 3 Mg Tablet) 6 mg PO HS [facility] Last Admin: 01/07/22 21:39 Dose: 6 mg Documented by: Methocarbamol (Methocarbamol 750 Mg Tablet) 750 mg PO Q8HP PRN PRN Reason: muscle spasms Last Admin: 01/08/22 05:26 Dose: 750 mg Documented by: Metronidazole (Metronidazole 500 Mg Tablet) 500 mg PO Q8 [facility]; Protocol Last Admin: 01/08/22 05:26 Dose: 500 mg Documented by: Ondansetron HCl (Ondansetron 4 Mg/2 Ml Vial) 4 mg IV Q4HP PRN; Protocol PRN Reason: Nausea And Vomiting Last Admin: 01/08/22 07:14 Dose: 4 mg Documented by: Polyethylene Glycol (Polyethylene Glycol 3350 17 Gm Packet) 17 gm PO QDAY [facility] Last Admin: 01/07/22 09:27 Dose: Not Given Documented by: Polysaccharide Iron Complex (Iron Polysaccharide Complex 150 Mg Capsule) 150 mg PO BID [facility] Last Admin: 01/07/22 21:39 Dose: 150 mg Documented by: Potassium Chloride (Potassium Chloride 10 Meq Tablet) 10 meq PO QAC [facility] Last Admin: 01/07/22 09:26 Dose: 10 meq Documented by: Senna (Sennosides 1 Tablet) 2 tab PO HSP PRN PRN Reason: Constipation Sodium Chloride (0.9 % Sodium Chloride 10 Ml Syringe) 10 ml IV Q8 [facility] Last Admin: 01/08/22 05:26 Dose: 10 ml Documented by: Vitamin D (Vitamin D3 25 Mcg Tablet) 100 mcg PO DAILY [facility] Last Admin: 01/07/22 09:28 Dose: 100 mcg Documented by: Zinc Sulfate (Zinc Sulfate 50 Mg Capsule) 50 mg PO DAILY [facility] Last Admin: 01/07/22 09:27 Dose: 50 mg Documented by: A/P Narrative A/P Narrative: A: #Acute hypoxic respiratory failure: 2/2 CAP + likely Aspiration + ?ILD -echo unimpressive -3-5L NC #CAP & likely Aspiration: -Positive Mycoplasma IgM, pcr pending #h/o possible Interstitial Lung Disease: #Concern for Dysphagia: #Recent Right Hip Fx s/p ORIF (12/05/2021) #Anemia,acute on chronic s/p hip surgery + KARLOS: #Generalized weakness: #Depression: #Chr hip pain: prn tramadol Plan -Continue Levofloxacin/Flagyl IV for now. pending BC -Oxygen supplementation (wean) -Mycoplasma PCR pending -Holding home lasix for now, appears euvolemic -ST eval -iron supp -PT and OT consult -Disposition: Probably SNF for rehab. 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
[2022-01-08] MEDS: LEVOFLOXACIN 750 MG/150 ML BAG IV SCH (08:54)
[2022-01-08] MEDS: VITAMIN D3 25 MCG TABLET PO SCH (08:54)
[2022-01-08] MEDS: CYANOCOBALAMIN (VITAMIN B-12) 500 MCG TABLET PO SCH (08:54)
[2022-01-08] MEDS: ENOXAPARIN 40 MG/0.4 ML SYRINGE SQ SCH (08:54)
[2022-01-08] MEDS: POLYETHYLENE GLYCOL 3350 17 GM PACKET PO SCH (08:54)
[2022-01-08] MEDS: ZINC SULFATE 50 MG CAPSULE PO SCH (08:55)
[2022-01-08] MEDS: POTASSIUM CHLORIDE 10 MEQ TABLET PO SCH (08:55)
[2022-01-08] MEDS: IRON POLYSACCHARIDE COMPLEX 150 MG CAPSULE PO SCH ×2 (08:55→21:01)
[2022-01-08] MEDS: FLUoxetine HCL 20 MG CAPSULE PO SCH (08:55)
[2022-01-08] MEDS: DOCUSATE SODIUM 100 MG CAPSULE PO SCH ×2 (08:56→21:02)
--- NOTE | 2022-01-08 08:57 | XRay Report ---
HISTORY: Short of breath follow-up pulmonary infiltrates, likely aspiration FINDINGS: There is a stable moderately severe diffuse alveolar infiltrate throughout the right lung with the greatest consolidation in the right upper lobe. This is unchanged. A more subtle interstitial infiltrate in the left upper lobe and above the left costophrenic sulcus have improved since yesterday. There is no pleural effusion. Heart size is normal. IMPRESSION: Improving mild interstitial infiltrate in the left lung and stable moderately severe infiltrates throughout the right lung Interpreted and Authenticated by: Cody Bernal 01/08/22
[2022-01-08 10:27] LABS: Anisocytosis 2+ (None Seen); Hypochromasia 2+ (None Seen); Lymphocytes % 6 % (15-49); Monocytes % (Manual) 10 % (1-12); Platelet Estimate INCREASED (Normal); Polychromasia OCC (None Seen); RBC Morphology ABNORMAL (Normal); Segmented Neutrophils % 84 % (38-78)
[2022-01-08] MEDS: ACETAMINOPHEN 325 MG TABLET PO PRN (10:49)
[2022-01-08] MEDS: traMADol 50 MG TABLET PO PRN ×2 (12:59→19:01)
[2022-01-08] MEDS ORDERED: PROMETHAZINE 25 MG/ML VIAL IV PRN (17:38)
[2022-01-08] MEDS ORDERED: PROCHLORPERAZINE 10 MG/2 ML VIAL IV PRN (17:40)
[2022-01-08] MEDS: diphenhydrAMINE 50 MG/ML VIAL IV PRN (17:52)
[2022-01-08] MEDS: MELATONIN 3 MG TABLET PO SCH (21:01)
[2022-01-09] MEDS: traMADol 50 MG TABLET PO PRN ×3 (04:15→21:16)
[2022-01-09] MEDS: 0.9 % SODIUM CHLORIDE 10 ML SYRINGE IV SCH ×3 (05:59→21:05)
[2022-01-09 06:46] LABS: Hematocrit 27.6 % (34.1-44.9); Hemoglobin 8.4 g/dL (11.2-15.7); Mean Cell Volume 89.3 fL (80.0-100.0); Mean Corpuscular HGB Conc 30.4 g/dL (31.0-36.0); Mean Platelet Volume 9.9 fL (7.4-10.4); Platelet Count 484 K/mcL (140-440); RBC 3.09 M/mcL (3.59-5.38); Red Cell Distribution Width 17.7 % (11.5-14.5); WBC 16.9 K/mcL (4.5-11.0)
[2022-01-09 07:11] LABS: ALT/SGPT 25 U/L (<40); AST/SGOT 44 U/L (<32); Albumin 2.9 gm/dL (3.2-5.2); Albumin/Globulin Ratio 0.9 (1.0-2.3); Alkaline Phosphatase 295 U/L (39-117); Bilirubin,Direct < 0.2 mg/dL (0-0.3); Bilirubin,Total 0.2 mg/dL (0.1-1.0); Blood Urea Nitrogen 18 mg/dL (8-23); Calcium 9.3 mg/dL (8.6-10.4); Carbon Dioxide 27 mmol/L (22-30); Chloride 99 mmol/L (96-108); Globulin 3.4 gm/dL (2.2-3.7); Glomerular Filtration Rate 83; Glucose 112 mg/dL (70-105); Lactate Dehydrogenase 403 U/L (135-225); Phosphorous 3.1 mg/dL (2.5-4.5); Triglycerides 76 mg/dL (<150); Uric Acid 4.2 mg/dL (2.5-8.0)
[2022-01-09] MEDS: METHOCARBAMOL 750 MG TABLET PO PRN ×3 (08:03→21:16)
[2022-01-09] MEDS: metroNIDAZOLE 500 MG TABLET PO SCH ×3 (08:03→23:00)
[2022-01-09 08:26] LABS: Anisocytosis 2+ (None Seen); Eosinophils % (Manual) 4 % (0-7); Hypochromasia 1+ (None Seen); Lymphocytes % 12 % (15-49); Monocytes % (Manual) 6 % (1-12); Platelet Estimate INCREASED (Normal); Polychromasia 1+ (None Seen); RBC Morphology ABNORMAL (Normal); Segmented Neutrophils % 78 % (38-78)
--- NOTE | 2022-01-09 08:29 | Internal Med Progress Note ---
SUBJECTIVE Subjective Patient information: Note initiated : 01/09/22 at 8:24 am Service Date, if different from initiated Date: [] Patient: Bianka Peterson a 76 y/o F admitted on 01/05/22 for Shortness of breath. Chief Complaint: [] Principal diagnosis: shortness of breath Interval history: Ms. Peterson is a 76 year old female with a history of chronic kidney disease stage III, concern for possible interstitial lung disease, recent right hip periprosthetic fracture status post ORIF in November, who has been in a group home facility following surgery for rehab. Present presented to the emergency department for shortness of breath that started the week prior to admission. While at the SNF, the patient was started on Lasix for bilateral lower extremity edema. The patient also recently had a CT chest without contrast that showed right diffuse groundglass alveolar infiltrates involving the right upper, right middle and right lower lobe. There was a small left upper lobe infiltrate. The patient was recently seen in the emergency department for epistaxis that resolved after cauterization in the emergency department. In the emergency department on the day of hospital admission, the patient required 6 L/min oxygen supplementation. The patient had leukocytosis however was afebrile and did not have a cough. Hemoglobin is lower than 2 days prior to admission at 7.6 down from 8.9. NT pro BNP was elevated at 1512. EKG did not show any acute ischemic changes, troponin was normal. The patient does have bilateral lower extremity, right greater than left and received a dose of IV Lasix in the emergency department. Hospital medicine was consulted to admit the patient for acute hypoxic respiratory failure. I discussed the plan of admission with the patient and family members at the bedside, all questions answered to the best my ability. We discussed CODE STATUS in detail, the patient will discuss this with her family prior to making a decision. 01/06 Much better today, mycoplasma IgM positive. CTA chest was negative for PE, showed predominantly right sided diffuse infiltrates. PANTHER and Respiratory panel negative. MRSA nasal PCR negative. Continue levofloxacin IV today. Continues to require about 6 L/min oxygen supplementation. Started dysphagia diet, awaiting speech evaluating. 01/07 Does not feel as good today as yesterday, chest xray ordered. Started on stress does hydrocortisone as the patient was receiving prednisone 20 mg daily prior to admission for an unknown duration. Speech continued dysphagia diet, mildly thick liquids. Continue Levofloxacin IV. TTE pending. 01/08 Patient has chronic hip pain and does not like the [place], will try tramadol. Oxygen requirement fluctuating between 3 and 8 L. N.p.o. until seen by speech therapy. Occasional cough and shortness of breath Complained of upset stomach and some nausea but no vomiting. Leukocytosis likely from high-dose steroids yesterday. 01/09 Patient is on 5 L nasal cannula sats low 90s. Shortness of breath overall improved. She has a mild occasional dry cough. Seems anxious. Poor appetite. Review of Systems: denies headache/fever/chills/vomiting/chest or abdominal pain/diarrhea. Otherwise see above. Constitutional Vitals: Vital Signs Temp Pulse Resp BP Pulse Ox 97.7 F 88 23 H 151/89 95 01/09/22 08:01 01/06/22 06:18 01/09/22 08:06 01/09/22 08:01 01/09/22 08:06 Period Temp Pulse Resp BP Sys/Ortiz Pulse Ox Last 24 Hr 97.7 F-98.6 F 18-38 122-170/74-99 87-100 Intake and Output 01/08/22 01/09/22 01/09/22 21:59 05:59 13:59 Output Total 150 2 100 Balance -150 -2 -100 Weight 59.591 kg Intake & Output: Intake & Output 01/08/22 01/09/22 01/09/22 21:59 05:59 13:59 Output Total 150 2 100 Balance -150 -2 -100 Weight 59.591 kg Output: Void Amount 150 100 # of times incontinent of urine 2 Other: Urine Appearance Clear Clear Urine Color Dark Yellow Dark Yellow Urine Odor Normal Stool Size Moderate Small Small Stool Color Brown Black Brown Green Stool Consistency Soft Liquid # Voids 1 # Bowel Movements 1 Exam: General: Alert, Awake, No acute Distress Eyes/N/T: EOMI, Head/Neck: neck supple, CV: RRR, No murmurs, Pulm: b/l fine rales and rhonchi, no wheezing Abd: soft, nontender, +BS x4 Ext: no clubbing/cyanosis/edema Neuro: Alert, no focal deficits, moves all extremities, Skin: warm/dry OBJ DATA Labs CBC & Chem 7: 01/09/22 05:23 01/09/22 05:22 Labs: Abnormal Lab Results 01/09/22 01/09/22 01/09/22 05:23 05:23 05:22 WBC 16.9 H RBC 3.09 L Hgb 8.4 L Hct 27.6 L MCHC 30.4 L RDW 17.7 H Plt Count 484 H Neut % (Auto) Lymph % (Auto) [place] % (Auto) Lymph # (Auto) [place] # (Auto) Seg Neutrophils % Lymphocytes % Absolute Neutrophils Platelet Estimate RBC Morphology Polychromasia Hypochromasia Anisocytosis Glucose 112 H GGT 232 H AST 44 H Alkaline Phosphatase 295 H Lactate Dehydrogenase 403 H C-Reactive Protein 8.20 H NT-Pro-B Natriuret Pep Albumin 2.9 L Globulin Albumin/Globulin Ratio 0.9 L 01/08/22 01/08/22 01/08/22 05:47 05:35 05:35 WBC RBC Hgb Hct MCHC RDW Plt Count Neut % (Auto) Lymph % (Auto) [place] % (Auto) Lymph # (Auto) [place] # (Auto) Seg Neutrophils % 84 H Lymphocytes % 6 L Absolute Neutrophils Platelet Estimate Increased A RBC Morphology Abnormal A Polychromasia Occ A Hypochromasia 2+ A Anisocytosis 2+ A Glucose 112 H GGT 231 H AST 39 H Alkaline Phosphatase 321 H Lactate Dehydrogenase 477 H C-Reactive Protein 10.30 H NT-Pro-B Natriuret Pep 697.2 H Albumin 3.0 L Globulin 3.8 H Albumin/Globulin Ratio 0.8 L 01/08/22 01/07/22 01/07/22 05:35 05:22 05:21 WBC 19.0 H 12.1 H RBC 3.21 L 3.30 L Hgb 8.9 L 9.0 L Hct 28.9 L 30.1 L MCHC 30.8 L 29.9 L RDW 17.7 H 17.8 H Plt Count 593 H 623 H Neut % (Auto) 79.1 H Lymph % (Auto) 12.0 L 13.1 L [place] % (Auto) Lymph # (Auto) [place] # (Auto) 1.62 H 1.36 H Seg Neutrophils % Lymphocytes % Absolute Neutrophils 15.00 H 8.71 H Platelet Estimate RBC Morphology Polychromasia Hypochromasia Anisocytosis Glucose GGT 249 H AST 35 H Alkaline Phosphatase 364 H Lactate Dehydrogenase 433 H C-Reactive Protein NT-Pro-B Natriuret Pep Albumin 3.0 L Globulin 3.8 H Albumin/Globulin Ratio 0.8 L 01/06/22 01/06/22 01/06/22 18:42 18:42 05:30 WBC RBC 2.85 L Hgb 7.9 L Hct 26.0 L MCHC 30.4 L RDW 18.0 H Plt Count 572 H Neut % (Auto) Lymph % (Auto) 12.2 L [place] % (Auto) 12.1 H Lymph # (Auto) 1.32 L [place] # (Auto) 1.31 H Seg Neutrophils % 96 H Lymphocytes % 2 L Absolute Neutrophils Platelet Estimate Markedly increased A RBC Morphology Abnormal A Polychromasia Occ A Hypochromasia Few A Anisocytosis 1+ A Glucose 111 H GGT 226 H AST 32 H Alkaline Phosphatase 352 H Lactate Dehydrogenase 417 H C-Reactive Protein NT-Pro-B Natriuret Pep Albumin 2.8 L Globulin Albumin/Globulin Ratio 0.8 L Meds: Medications Acetaminophen (Acetaminophen 325 Mg Tablet) 650 mg PO Q6HP PRN; Protocol PRN Reason: Per Pain Protocol/Fever > 101 Last Admin: 01/08/22 10:49 Dose: 650 mg Documented by: Hydrocodone Bitart/Acetaminophen (Hydrocodone/Apap 5/325mg Tablet) 1 tab PO Q4HP PRN; Protocol PRN Reason: Per Pain Protocol Last Admin: 01/08/22 07:14 Dose: 1 tab Documented by: Cyanocobalamin (Cyanocobalamin (Vitamin B-12) 500 Mcg Tablet) 1,000 mcg PO DAILY [facility] Last Admin: 01/08/22 08:54 Dose: 1,000 mcg Documented by: Diphenhydramine HCl (Diphenhydramine 50 Mg/Ml Vial) 12.5 mg IV Q4HP PRN PRN Reason: Nausea And Vomiting Last Admin: 01/08/22 17:52 Dose: 12.5 mg Documented by: Docusate Sodium (Docusate Sodium 100 Mg Capsule) 100 mg PO BID [facility] Last Admin: 01/08/22 21:02 Dose: Not Given Documented by: Enoxaparin Sodium (Enoxaparin 40 Mg/0.4 Ml Syringe) 40 mg SQ DAILY [facility] Last Admin: 01/08/22 08:54 Dose: 40 mg Documented by: Fluoxetine HCl (Fluoxetine Hcl 20 Mg Capsule) 20 mg PO QDAY [facility] Last Admin: 01/08/22 08:55 Dose: 20 mg Documented by: Levofloxacin (Levaquin) 750 mg in 150 mls @ 100 mls/hr IV Q24H [facility]; Protocol Stop: 01/10/22 19:28 Last Infusion: 01/08/22 10:58 Dose: Infused Documented by: Lactulose (Lactulose 20 Gm/30 Ml Oral.Alma) 10 gm PO DAILYP PRN PRN Reason: Constipation Melatonin (Melatonin 3 Mg Tablet) 6 mg PO [facility] Last Admin: 01/08/22 21:01 Dose: 6 mg Documented by: Methocarbamol (Methocarbamol 750 Mg Tablet) 750 mg PO Q8HP PRN PRN Reason: muscle spasms Last Admin: 01/08/22 22:34 Dose: 750 mg Documented by: Metronidazole (Metronidazole 500 Mg Tablet) 500 mg PO Q8 [facility]; Protocol Last Admin: 01/09/22 08:03 Dose: 500 mg Documented by: Ondansetron HCl (Ondansetron 4 Mg/2 Ml Vial) 4 mg IV Q4HP PRN; Protocol PRN Reason: Nausea And Vomiting Last Admin: 01/08/22 07:14 Dose: 4 mg Documented by: Polyethylene Glycol (Polyethylene Glycol 3350 17 Gm Packet) 17 gm PO QDAY [facility] Last Admin: 01/08/22 08:54 Dose: 17 gm Documented by: Polysaccharide Iron Complex (Iron Polysaccharide Complex 150 Mg Capsule) 150 mg PO BID [facility] Last Admin: 01/08/22 21:01 Dose: 150 mg Documented by: Potassium Chloride (Potassium Chloride 10 Meq Tablet) 10 meq PO [facility] Last Admin: 01/08/22 08:55 Dose: 10 meq Documented by: Prochlorperazine (Prochlorperazine 10 Mg/2 Ml Vial) 5 mg IV Q6HP PRN PRN Reason: Nausea And Vomiting Last Admin: 01/09/22 08:02 Dose: 5 mg Documented by: Promethazine HCl (Promethazine 25 Mg/Ml Vial) 12.5 mg IV Q6HP PRN PRN Reason: Nausea And Vomiting Senna (Sennosides 1 Tablet) 2 tab PO HSP PRN PRN Reason: Constipation Sodium Chloride (0.9 % Sodium Chloride 10 Ml Syringe) 10 ml IV Q8 [facility] Last Admin: 01/09/22 05:59 Dose: 10 ml Documented by: Tramadol HCl (Tramadol 50 Mg Tablet) 50 mg PO Q4-6HP PRN; Protocol PRN Reason: Pain Last Admin: 01/09/22 04:15 Dose: 50 mg Documented by: Vitamin D (Vitamin D3 25 Mcg Tablet) 100 mcg PO DAILY [facility] Last Admin: 01/08/22 08:54 Dose: 100 mcg Documented by: Zinc Sulfate (Zinc Sulfate 50 Mg Capsule) 50 mg PO DAILY [facility] Last Admin: 01/08/22 08:55 Dose: 50 mg Documented by: A/P Narrative A/P Narrative: A: #Acute hypoxic respiratory failure: 2/2 CAP + ?Aspiration + ?ILD -echo unimpressive -5-7L NC #CAP(atypical vs viral) & ?Aspiration(ST eval no obvious signs): -Positive Mycoplasma IgM, pcr pendin, RVP/covid neg -CRP showing some improvement on left #h/o possible Interstitial Lung Disease: #Concern for Dysphagia: #Recent Right Hip Fx s/p ORIF (12/05/2021) #Anemia,acute on chronic s/p hip surgery + KARLOS: #Generalized weakness: #Depression: #Chr hip pain: prn tramadol Plan -Dr. Mtz consulted -Continue Levofloxacin/Flagyl IV for now. 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
[2022-01-09] MEDS: DOCUSATE SODIUM 100 MG CAPSULE PO SCH (09:36)
[2022-01-09] MEDS: CYANOCOBALAMIN (VITAMIN B-12) 500 MCG TABLET PO SCH (09:36)
[2022-01-09] MEDS: ZINC SULFATE 50 MG CAPSULE PO SCH (09:37)
[2022-01-09] MEDS: VITAMIN D3 25 MCG TABLET PO SCH (09:37)
[2022-01-09] MEDS: LEVOFLOXACIN 750 MG/150 ML BAG IV SCH (10:26)
[2022-01-09] MEDS: ENOXAPARIN 40 MG/0.4 ML SYRINGE SQ SCH (10:26)
[2022-01-09] MEDS: FLUoxetine HCL 20 MG CAPSULE PO SCH (10:27)
[2022-01-09] MEDS: POTASSIUM CHLORIDE 10 MEQ TABLET PO SCH (10:27)
[2022-01-09] MEDS: POLYETHYLENE GLYCOL 3350 17 GM PACKET PO SCH (10:27)
[2022-01-09] MEDS: IRON POLYSACCHARIDE COMPLEX 150 MG CAPSULE PO SCH ×2 (10:27→21:06)
[2022-01-09] MEDS ORDERED: hydrOXYzine 25 MG TABLET PO ONE (10:40)
[2022-01-09] MEDS ORDERED: POLYETHYLENE GLYCOL 3350 17 GM PACKET PO PRN (10:44)
[2022-01-09] MEDS: SCOPOLAMINE 1 PATCH PATCH TOPICAL SCH (17:11)
--- NOTE | 2022-01-09 20:48 | Consultation ---
DATE OF CONSULTATION: 01/09/2022 PULMONARY CONSULTATION HISTORY OF PRESENT ILLNESS: The patient is a 76-year-old female admitted on 01/05/2022. The patient had undergone a right hip replacement with re-operation approximately 24 hours subsequently. She was in rehab where she developed the subacute onset of significant shortness of breath. This had been gradually increasing in retrospect over 2 or 3 days. She denies significant cough or sputum production. She had apparently been on diuretic therapy, which she had been taking less frequently than had been recommended. She was noted to have mild rhonchi bilaterally at that time and imaging indicated the presence of significant infiltrate in the right hemithorax along with leukocytosis with a white count of 13.3 along with anemia with a hemoglobin of 7.6 and an elevated platelet count of 599,000. The patient was admitted and initiated on antibiotic therapy with Levaquin. Mycoplasma pneumonia antibody came back positive. Screen for viral illnesses was negative. During the patient's subsequent hospital course, out of concern for aspiration, metronidazole was added to her medical regimen. The patient indicates that she had been actually improving in her rehabilitation facility after her hip surgery and was looking forward to getting home from that situation prior to her deterioration. Filling in more of the picture, the patient reports having been born in [place], [place]. 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 She denies dust or industrial occupational exposures. She denies unusual pets, plants, or birds in the home. There is 1 dog in the home. She does not consider herself to be an allergic person. She denies known exposure to tuberculosis or previous PPD skin testing. She does provide a history that approximately 3 years ago, she had an evaluation for some lung difficulties. Review of the record indicates the presence of a pulmonary function study test done at [facility] on 05/19/2016. Those studies are available and reviewed. They indicate findings consistent with a significant restrictive pulmonary deficit at that time with a total lung capacity at 65% of predicted and residual volume at 56% of predicted. Forced vital capacity and FEV1 were 66% and 67% respectively. Her diffusing capacity was corrected with reduced at 57% of predicted. She states that records were sent to [place] as there was no installer molding and trim in the community at that time, and there was a discussion about a possible lung biopsy, but she states "all of that was dropped," and she is not sure what if anything ever became of that. Reviewing the patient's current CT scan, she does have pulmonary concerns due to a significant degree of scoliosis as well as a pectus excavatum. However, additionally, there is a significant difference between the pulmonary parenchyma between the left and right hemithorax with significant bronchiectatic changes in the right hemithorax. Without prompting, the patient indicates that she had always slept on her right side prior to her difficulties with her hip surgery and has been sleeping sort of upright in a recliner since that time in order to get comfortable. CT scan shows significant infiltrate and bronchiectasis on the right, consistent with the possibility of intermittent reflux and aspiration or aspiration and dysphagia. REVIEW OF SYSTEMS: Otherwise negative. PHYSICAL EXAMINATION: General: A weak appearing and pale 70-year-old female, in no acute distress. HEENT: Head is atraumatic and normocephalic. Neck: Supple. The carotids are equal without bruits. Lungs: Have decreased breath sounds throughout with an interstitial sounds, scattered in both lung bell, greater in the right hemithorax and occasional rhonchus on the right. Heart: Regular S1 and S2. No apparent murmur, gallop, rub, jugular venous distention; mild dependent edema R>Lwith some post-hip surgery changes, perhaps in the right lower extremity. Abdomen: Soft. Bowel sounds are normal. Liver and spleen are not palpable. Bones, Joints, and Extremities: Have changes of recent hip surgery, but otherwise benign. Neurologic: Nonfocal. LABORATORY DATA: As discussed. IMPRESSION: Right pulmonary parenchymal infiltrate aspiration versus bacterial pneumonitis due to evidence of white count and sed rate of an acute inflammatory process, whether mycoplasma or an episode of aspiration or acid aspiration would be considerations. Given the elevation of the erythrocyte sedimentation rate, collagen vascular workup probably should be ordered to assess anything that may have been smoldering with her previous interstitial lung possibilities and her current presentation. Agree with continuing levofloxacin for the possibility of a mycoplasma pneumonia as well as adding anaerobic coverage with the issues related to possible aspiration. I will discuss. KJP:wilber Job ID: [id number] Doc ID: [id number] MD PATRICK Sims
[2022-01-09] MEDS: MELATONIN 3 MG TABLET PO SCH (21:06)
[2022-01-09] MEDS: diphenhydrAMINE 50 MG/ML VIAL IV PRN (21:06)
[2022-01-10] MEDS: traMADol 50 MG TABLET PO PRN ×2 (05:03→16:57)
[2022-01-10] MEDS: 0.9 % SODIUM CHLORIDE 10 ML SYRINGE IV SCH ×3 (05:04→21:30)
[2022-01-10] MEDS: hydrOXYzine 25 MG TABLET PO PRN ×2 (06:13→19:35)
[2022-01-10] MEDS: metroNIDAZOLE 500 MG TABLET PO SCH ×3 (06:13→21:28)
[2022-01-10 06:19] LABS: Basophils # (Auto) 0.08 K/mcL (0.00-0.30); Basophils % (Auto) 0.4 % (0.0-2.0); Eosinophils # (Auto) 0.49 K/mcL (0.00-0.70); Eosinophils % (Auto) 2.5 % (0.0-7.0); Hematocrit 28.6 % (34.1-44.9); Hemoglobin 8.6 g/dL (11.2-15.7); Lymphocytes # (Auto) 1.65 K/mcL (1.50-4.80); Lymphocytes % (Auto) 8.3 % (15.5-49.0); Mean Cell Volume 88.8 fL (80.0-100.0); Mean Corpuscular HGB Conc 30.1 g/dL (31.0-36.0); Mean Platelet Volume 10.1 fL (7.4-10.4); Monocytes # (Auto) 1.65 K/mcL (0.10-0.90); Monocytes % (Auto) 8.3 % (1.0-12.0); Neutrophils % (Auto) 80.5 % (38.0-78.0); Platelet Count 483 K/mcL (140-440); RBC 3.22 M/mcL (3.59-5.38); Red Cell Distribution Width 18.1 % (11.5-14.5)
[2022-01-10 06:40] LABS: ALT/SGPT 22 U/L (<40); AST/SGOT 35 U/L (<32); Albumin 2.9 gm/dL (3.2-5.2); Albumin/Globulin Ratio 0.8 (1.0-2.3); Alkaline Phosphatase 272 U/L (39-117); Bilirubin,Direct < 0.2 mg/dL (0-0.3); Bilirubin,Total 0.3 mg/dL (0.1-1.0); Blood Urea Nitrogen 18 mg/dL (8-23); Calcium 9.1 mg/dL (8.6-10.4); Carbon Dioxide 25 mmol/L (22-30); Chloride 99 mmol/L (96-108); Globulin 3.7 gm/dL (2.2-3.7); Glomerular Filtration Rate 83; Glucose 104 mg/dL (70-105); Lactate Dehydrogenase 416 U/L (135-225); Phosphorous 3.1 mg/dL (2.5-4.5); Triglycerides 81 mg/dL (<150); Uric Acid 4.1 mg/dL (2.5-8.0)
--- NOTE | 2022-01-10 07:56 | Internal Med Progress Note ---
SUBJECTIVE Subjective Patient information: Note initiated : 01/10/22 at 7:45 am Service Date, if different from initiated Date: [] Patient: Bianka Peterson a 76 y/o F admitted on 01/05/22 for Shortness of breath. Chief Complaint: [] Principal diagnosis: shortness of breath Interval history: Ms. Peterson is a 76 year old female with a history of chronic kidney disease stage III, concern for possible interstitial lung disease, recent right hip periprosthetic fracture status post ORIF in November, who has been in a penitentiary facility following surgery for rehab. Present presented to the emergency department for shortness of breath that started the week prior to admission. While at the SNF, the patient was started on Lasix for bilateral lower extremity edema. The patient also recently had a CT chest without contrast that showed right diffuse groundglass alveolar infiltrates involving the right upper, right middle and right lower lobe. There was a small left upper lobe infiltrate. The patient was recently seen in the emergency department for epistaxis that resolved after cauterization in the emergency department. In the emergency department on the day of hospital admission, the patient required 6 L/min oxygen supplementation. The patient had leukocytosis however was afebrile and did not have a cough. Hemoglobin is lower than 2 days prior to admission at 7.6 down from 8.9. NT pro BNP was elevated at 1512. EKG did not show any acute ischemic changes, troponin was normal. The patient does have bilateral lower extremity, right greater than left and received a dose of IV Lasix in the emergency department. Hospital medicine was consulted to admit the patient for acute hypoxic respiratory failure. I discussed the plan of admission with the patient and family members at the bedside, all questions answered to the best my ability. We discussed CODE STATUS in detail, the patient will discuss this with her family prior to making a decision. 01/06 Much better today, mycoplasma IgM positive. CTA chest was negative for PE, showed predominantly right sided diffuse infiltrates. PANTHER and Respiratory panel negative. MRSA nasal PCR negative. Continue levofloxacin IV today. Continues to require about 6 L/min oxygen supplementation. Started dysphagia diet, awaiting speech evaluating. 01/07 Does not feel as good today as yesterday, chest xray ordered. Started on stress does hydrocortisone as the patient was receiving prednisone 20 mg daily prior to admission for an unknown duration. Speech continued dysphagia diet, mildly thick liquids. Continue Levofloxacin IV. TTE pending. 01/08 Patient has chronic hip pain and does not like the [place], will try tramadol. Oxygen requirement fluctuating between 3 and 8 L. N.p.o. until seen by speech therapy. Occasional cough and shortness of breath Complained of upset stomach and some nausea but no vomiting. Leukocytosis likely from high-dose steroids yesterday. 01/09 Patient is on 5 L nasal cannula sats low 90s. Shortness of breath overall improved. She has a mild occasional dry cough. Seems anxious. Poor appetite. 01/10 Patient is requiring 4 to 8 L of nasal cannula. Patient seen by pulmonology Dr. Mtz last night, no change in treatment plan. Reported CT scan showed right hemithorax with significant bronchiectasis changes as suspected in chronic reflux aspiration. Patient seems to get anxious quite easily. She has poor appetite and not eating very well. Seems to have failure to thrive. She does report that she has noticed that when she walks her dog she becomes extremely exhausted and worn out afterwards. And she says she has been declining in this regard for the past year. Review of Systems: denies headache/fever/chills/vomiting/chest or abdominal pain/diarrhea. Otherwise see above. Constitutional Vitals: Vital Signs Temp Pulse Resp BP Pulse Ox 97.2 F 88 33 H 140/90 95 01/10/22 04:01 01/06/22 06:18 01/10/22 06:00 01/10/22 06:00 01/10/22 06:00 Period Temp Pulse Resp BP Sys/Ortiz Pulse Ox Last 24 Hr 97.2 F-98.5 F 20-35 118-151/68-103 89-100 Intake and Output 01/09/22 01/10/22 01/10/22 21:59 05:59 13:59 Intake Total 180 300 Output Total 251 125 50 Balance -71 175 -50 Weight 58.196 kg Intake & Output: Intake & Output 01/09/22 01/10/22 01/10/22 21:59 05:59 13:59 Intake Total 180 300 Output Total 251 125 50 Balance -71 175 -50 Weight 58.196 kg Intake: Nourishment/Supplement quantity 180 60 (ml) Oral 240 Output: Void Amount 250 125 50 # of times incontinent of urine 1 Other: Meal Nourishment/Supplement Nourishment/Supplement name Ensure Clear Ensure Clear Urine Appearance Clear Clear Clear Urine Color Bright Yellow Dark Yellow Bright Yellow Urine Odor Normal Stool Size Moderate Stool Color Green Stool Consistency Soft Exam: General: Alert, Awake, No acute Distress Eyes/N/T: EOMI, Head/Neck: neck supple, CV: RRR, No murmurs, Pulm: minimal rales/rhonchi left, much greater right sight ronchi/rales, no wheezing Abd: soft, nontender, +BS x4 Ext: no clubbing/cyanosis/edema Neuro: Alert, no focal deficits, moves all extremities, Skin: warm/dry OBJ DATA Labs CBC & Chem 7: 01/10/22 05:07 01/10/22 05:06 Labs: Abnormal Lab Results 01/10/22 01/10/22 01/09/22 05:07 05:06 05:23 WBC 20.0 H RBC 3.22 L Hgb 8.6 L Hct 28.6 L MCHC 30.1 L RDW 18.1 H Plt Count 483 H Neut % (Auto) 80.5 H Lymph % (Auto) 8.3 L Burke # (Auto) 1.65 H Seg Neutrophils % Lymphocytes % Absolute Neutrophils 16.11 H Platelet Estimate RBC Morphology Polychromasia Hypochromasia Anisocytosis ESR 62 H Glucose GGT 210 H AST 35 H Alkaline Phosphatase 272 H Lactate Dehydrogenase 416 H C-Reactive Protein 9.50 H NT-Pro-B Natriuret Pep Albumin 2.9 L Globulin Albumin/Globulin Ratio 0.8 L 01/09/22 01/09/22 01/09/22 05:23 05:23 05:22 WBC 16.9 H RBC 3.09 L Hgb 8.4 L Hct 27.6 L MCHC 30.4 L RDW 17.7 H Plt Count 484 H Neut % (Auto) Lymph % (Auto) Burke # (Auto) Seg Neutrophils % Lymphocytes % 12 L Absolute Neutrophils Platelet Estimate Increased A RBC Morphology Abnormal A Polychromasia 1+ A Hypochromasia 1+ A Anisocytosis 2+ A ESR Glucose 112 H GGT 232 H AST 44 H Alkaline Phosphatase 295 H Lactate Dehydrogenase 403 H C-Reactive Protein 8.20 H NT-Pro-B Natriuret Pep Albumin 2.9 L Globulin Albumin/Globulin Ratio 0.9 L 01/08/22 01/08/22 01/08/22 05:47 05:35 05:35 WBC RBC Hgb Hct MCHC RDW Plt Count Neut % (Auto) Lymph % (Auto) Burke # (Auto) Seg Neutrophils % 84 H Lymphocytes % 6 L Absolute Neutrophils Platelet Estimate Increased A RBC Morphology Abnormal A Polychromasia Occ A Hypochromasia 2+ A Anisocytosis 2+ A ESR Glucose 112 H GGT 231 H AST 39 H Alkaline Phosphatase 321 H Lactate Dehydrogenase 477 H C-Reactive Protein 10.30 H NT-Pro-B Natriuret Pep 697.2 H Albumin 3.0 L Globulin 3.8 H Albumin/Globulin Ratio 0.8 L 01/08/22 05:35 WBC 19.0 H RBC 3.21 L Hgb 8.9 L Hct 28.9 L MCHC 30.8 L RDW 17.7 H Plt Count 593 H Neut % (Auto) 79.1 H Lymph % (Auto) 12.0 L Burke # (Auto) 1.62 H Seg Neutrophils % Lymphocytes % Absolute Neutrophils 15.00 H Platelet Estimate RBC Morphology Polychromasia Hypochromasia Anisocytosis ESR Glucose GGT AST Alkaline Phosphatase Lactate Dehydrogenase C-Reactive Protein NT-Pro-B Natriuret Pep Albumin Globulin Albumin/Globulin Ratio Meds: Medications Acetaminophen (Acetaminophen 325 Mg Tablet) 650 mg PO Q6HP PRN; Protocol PRN Reason: Per Pain Protocol/Fever > 101 Last Admin: 01/08/22 10:49 Dose: 650 mg Documented by: Hydrocodone Bitart/Acetaminophen (Hydrocodone/Apap 5/325mg Tablet) 1 tab PO Q4HP PRN; Protocol PRN Reason: Per Pain Protocol Last Admin: 01/08/22 07:14 Dose: 1 tab Documented by: Cyanocobalamin (Cyanocobalamin (Vitamin B-12) 500 Mcg Tablet) 1,000 mcg PO DAILY [facility] Last Admin: 01/09/22 09:36 Dose: Not Given Documented by: Diphenhydramine HCl (Diphenhydramine 50 Mg/Ml Vial) 12.5 mg IV Q4HP PRN PRN Reason: Nausea And Vomiting Last Admin: 01/09/22 21:06 Dose: 12.5 mg Documented by: Enoxaparin Sodium (Enoxaparin 40 Mg/0.4 Ml Syringe) 40 mg SQ DAILY [facility] Last Admin: 01/09/22 10:26 Dose: 40 mg Documented by: Fluoxetine HCl (Fluoxetine Hcl 20 Mg Capsule) 20 mg PO QDAY [facility] Last Admin: 01/09/22 10:27 Dose: 20 mg Documented by: Hydroxyzine HCl (Hydroxyzine 25 Mg Tablet) 50 mg PO TIDP PRN PRN Reason: anxiety Last Admin: 01/10/22 06:13 Dose: 50 mg Documented by: Levofloxacin (Levaquin) 750 mg in 150 mls @ 100 mls/hr IV Q24H [facility]; Protocol Stop: 01/10/22 19:28 Last Infusion: 01/09/22 12:20 Dose: Infused Documented by: Lactulose (Lactulose 20 Gm/30 Ml Oral.Alma) 10 gm PO DAILYP PRN PRN Reason: Constipation Melatonin (Melatonin 3 Mg Tablet) 6 mg PO HS [facility] Last Admin: 01/09/22 21:06 Dose: 6 mg Documented by: Methocarbamol (Methocarbamol 750 Mg Tablet) 750 mg PO Q8HP PRN PRN Reason: muscle spasms Last Admin: 01/09/22 21:16 Dose: 750 mg Documented by: Metronidazole (Metronidazole 500 Mg Tablet) 500 mg PO Q8 [facility]; Protocol Last Admin: 01/10/22 06:13 Dose: 500 mg Documented by: Ondansetron HCl (Ondansetron 4 Mg/2 Ml Vial) 4 mg IV Q4HP PRN; Protocol PRN Reason: Nausea And Vomiting Last Admin: 01/08/22 07:14 Dose: 4 mg Documented by: Polyethylene Glycol (Polyethylene Glycol 3350 17 Gm Packet) 17 gm PO QDAY PRN PRN Reason: c Polysaccharide Iron Complex (Iron Polysaccharide Complex 150 Mg Capsule) 150 mg PO BID [facility] Last Admin: 01/09/22 21:06 Dose: 150 mg Documented by: Prochlorperazine (Prochlorperazine 10 Mg/2 Ml Vial) 5 mg IV Q6HP PRN PRN Reason: Nausea And Vomiting Last Admin: 01/09/22 08:02 Dose: 5 mg Documented by: Promethazine HCl (Promethazine 25 Mg/Ml Vial) 12.5 mg IV Q6HP PRN PRN Reason: Nausea And Vomiting Scopolamine (Scopolamine 1 Patch Patch) 1 patch TOPICAL Q72H [facility] Last Admin: 01/09/22 17:11 Dose: 1 patch Documented by: Senna (Sennosides 1 Tablet) 2 tab PO HSP PRN PRN Reason: Constipation Sodium Chloride (0.9 % Sodium Chloride 10 Ml Syringe) 10 ml IV Q8 [facility] Last Admin: 01/10/22 05:04 Dose: 10 ml Documented by: Tramadol HCl (Tramadol 50 Mg Tablet) 50 mg PO Q4-6HP PRN; Protocol PRN Reason: Pain Last Admin: 01/10/22 05:03 Dose: 50 mg Documented by: Vitamin D (Vitamin D3 25 Mcg Tablet) 100 mcg PO DAILY [facility] Zinc Sulfate (Zinc Sulfate 50 Mg Capsule) 50 mg PO DAILY [facility] Last Admin: 01/09/22 09:37 Dose: Not Given Documented by: A/P Narrative A/P Narrative: A: #Acute hypoxic respiratory failure: 2/2 CAP + chronic chemical (gastric acid aspiration) pneumonitis & underlying Bronchiectasis -echo unimpressive -4-8L NC #CAP(atypical vs viral) & ?Aspiration(ST eval no obvious signs): -Positive Mycoplasma IgM, pcr pending, RVP/covid neg -CXR imporved on left, chronic damage on right #h/o possible Interstitial Lung Disease: #Persistend leukocytosis: periph smear pending #Recent Right Hip Fx s/p ORIF (12/05/2021) #Anemia,acute on chronic s/p hip surgery + KARLOS: #Generalized weakness: #Depression: #Chr hip pain: prn tramadol #Cachexia: #Goals of care: Plan -Dr. Mtz consulted > no change in treatment plan. likely underlying severe chronic lung damage on right -Continue Levofloxacin/Flagyl IV for now -Oxygen supplementation (wean) -Mycoplasma PCR pending -periph smear pending -Holding home lasix for now, appears euvolemic -iron supp -PT and OT consult -Disposition: Probably SNF for rehab -f/u with Pulmonary oupt -ppx: Lovenox Code status: Thermostat Mechanic Spent With Patient Time: Total time spent is greater than 50% in coordination of care (as documented) at patient's floor/unit and/or counseling patient:
[2022-01-10] MEDS: ONDANSETRON 4 MG/2 ML VIAL IV PRN ×2 (08:35→16:57)
[2022-01-10] MEDS: LEVOFLOXACIN 750 MG/150 ML BAG IV SCH (08:36)
[2022-01-10] MEDS: ENOXAPARIN 40 MG/0.4 ML SYRINGE SQ SCH (09:20)
[2022-01-10] MEDS: CYANOCOBALAMIN (VITAMIN B-12) 500 MCG TABLET PO SCH ×2 (09:20→11:09)
[2022-01-10] MEDS: VITAMIN D3 25 MCG TABLET PO SCH ×2 (09:20→11:09)
[2022-01-10] MEDS: FLUoxetine HCL 20 MG CAPSULE PO SCH (09:20)
[2022-01-10] MEDS: METHOCARBAMOL 750 MG TABLET PO PRN (09:20)
[2022-01-10] MEDS: METHOCARBAMOL 500 MG TABLET PO PRN ×2 (09:20→19:40)
[2022-01-10] MEDS: ZINC SULFATE 50 MG CAPSULE PO SCH ×2 (09:21→11:09)
[2022-01-10] MEDS: IRON POLYSACCHARIDE COMPLEX 150 MG CAPSULE PO SCH ×3 (09:21→21:28)
[2022-01-10] MEDS: ACETAMINOPHEN 325 MG TABLET PO PRN (09:21)
[2022-01-10] MEDS ORDERED: MECLIZINE 25 MG TABLET PO ONE (12:14)
[2022-01-10] MEDS ORDERED: METOCLOPRAMIDE 10 MG/2 ML VIAL IV ONE (12:14)
[2022-01-10] MEDS: IPRATROPIUM/ALBUTEROL 3 ML AMPUL.NEB NEB PRN (12:21)
[2022-01-10] MEDS ORDERED: BENZOCAINE 1 SPRAY BOTTLE TOPICAL PRN (12:38)
[2022-01-10] MEDS: MEGESTROL ACETATE 400 MG/10 ML UDC PO SCH (12:49)
[2022-01-10] MEDS: BENZOCAINE/MENTHOL 1 LOZENGE PO PRN (12:49)
[2022-01-10] MEDS ORDERED: MECLIZINE 25 MG TABLET PO SCH (15:00)
[2022-01-10] MEDS ORDERED: 0.9 % SODIUM CHLORIDE 500 ML IV ONE (16:34)
[2022-01-10] MEDS ORDERED: 0.9 % SODIUM CHLORIDE 250 ML IV ONE (16:34)
[2022-01-10] MEDS ORDERED: METOCLOPRAMIDE 10 MG/2 ML VIAL IV PRN (18:00)
[2022-01-10] MEDS ORDERED: AMITRIPTYLINE 25 MG TABLET PO SCH (21:00)
[2022-01-10] MEDS ORDERED: diphenhydrAMINE 25 MG CAPSULE PO PRN (21:00)
[2022-01-10] MEDS ORDERED: TEMAZEPAM 15 MG CAPSULE PO SCH (21:00)
[2022-01-10] MEDS: MELATONIN 3 MG TABLET PO SCH (21:26)
[2022-01-11] MEDS: 0.9 % SODIUM CHLORIDE 10 ML SYRINGE IV SCH ×4 (00:32→21:30)
[2022-01-11] MEDS: traMADol 50 MG TABLET PO PRN ×2 (02:27→21:28)
[2022-01-11] MEDS: BENZOCAINE/MENTHOL 1 LOZENGE PO PRN (05:27)
[2022-01-11] MEDS: metroNIDAZOLE 500 MG TABLET PO SCH ×3 (05:28→23:06)
[2022-01-11 06:51] LABS: Hemoglobin 8.8 g/dL (11.2-15.7); Mean Cell Volume 86.7 fL (80.0-100.0); Mean Corpuscular HGB Conc 31.4 g/dL (31.0-36.0); Mean Platelet Volume 10.1 fL (7.4-10.4); Platelet Count 433 K/mcL (140-440); RBC 3.23 M/mcL (3.59-5.38); WBC 20.8 K/mcL (4.5-11.0)
[2022-01-11 07:18] LABS: Blood Urea Nitrogen 16 mg/dL (8-23); Calcium 8.9 mg/dL (8.6-10.4); Carbon Dioxide 24 mmol/L (22-30); Chloride 102 mmol/L (96-108); Glomerular Filtration Rate 71; Glucose 101 mg/dL (70-105)
--- NOTE | 2022-01-11 08:42 | Internal Med Progress Note ---
SUBJECTIVE Subjective Patient information: Note initiated : 01/11/22 at 8:39 am Service Date, if different from initiated Date: [] Patient: Bianka Peterson a 76 y/o F admitted on 01/05/22 for Shortness of breath. Chief Complaint: [] Principal diagnosis: shortness of breath Interval history: Ms. Peterson is a 76 year old female with a history of chronic kidney disease stage III, concern for possible interstitial lung disease, recent right hip periprosthetic fracture status post ORIF in November, who has been in a shelter facility following surgery for rehab. Present presented to the emergency department for shortness of breath that started the week prior to admission. While at the SNF, the patient was started on Lasix for bilateral lower extremity edema. The patient also recently had a CT chest without contrast that showed right diffuse groundglass alveolar infiltrates involving the right upper, right middle and right lower lobe. There was a small left upper lobe infiltrate. The patient was recently seen in the emergency department for epistaxis that resolved after cauterization in the emergency department. In the emergency department on the day of hospital admission, the patient required 6 L/min oxygen supplementation. The patient had leukocytosis however was afebrile and did not have a cough. Hemoglobin is lower than 2 days prior to admission at 7.6 down from 8.9. NT pro BNP was elevated at 1512. EKG did not show any acute ischemic changes, troponin was normal. The patient does have bilateral lower extremity, right greater than left and received a dose of IV Lasix in the emergency department. Hospital medicine was consulted to admit the patient for acute hypoxic respiratory failure. I discussed the plan of admission with the patient and family members at the bedside, all questions answered to the best my ability. We discussed CODE STATUS in detail, the patient will discuss this with her family prior to making a decision. 01/06 Much better today, mycoplasma IgM positive. CTA chest was negative for PE, showed predominantly right sided diffuse infiltrates. PANTHER and Respiratory panel negative. MRSA nasal PCR negative. Continue levofloxacin IV today. Continues to require about 6 L/min oxygen supplementation. Started dysphagia diet, awaiting speech evaluating. 01/07 Does not feel as good today as yesterday, chest xray ordered. Started on stress does hydrocortisone as the patient was receiving prednisone 20 mg daily prior to admission for an unknown duration. Speech continued dysphagia diet, mildly thick liquids. Continue Levofloxacin IV. TTE pending. 01/08 Patient has chronic hip pain and does not like the [place], will try tramadol. Oxygen requirement fluctuating between 3 and 8 L. N.p.o. until seen by speech therapy. Occasional cough and shortness of breath Complained of upset stomach and some nausea but no vomiting. Leukocytosis likely from high-dose steroids yesterday. 01/09 Patient is on 5 L nasal cannula sats low 90s. Shortness of breath overall improved. She has a mild occasional dry cough. Seems anxious. Poor appetite. 01/10 Patient is requiring 4 to 8 L of nasal cannula. Patient seen by pulmonology Dr. Mtz last night, no change in treatment plan. Reported CT scan showed right hemithorax with significant bronchiectasis changes as suspected in chronic reflux aspiration. Patient seems to get anxious quite easily. She has poor appetite and not eating very well. Seems to have failure to thrive. She does report that she has noticed that when she walks her dog she becomes extremely exhausted and worn out afterwards. And she says she has been declining in this regard for the past year. 01/11 Patient anxious still complains of nausea on awakening trial and sitting up with nurses. On 4 to 6 L nasal cannula. Discussed CODE STATUS with the patient and she decided to do on a DO NOT RESUSCITATE. Sore throat better with the supper call lozenges. Review of Systems: denies headache/fever/chills/vomiting/chest or abdominal pain/diarrhea. Otherwise see above. Constitutional Vitals: Vital Signs Temp Pulse Resp BP Pulse Ox 98.6 F 88 25 H 140/84 92 01/11/22 08:00 01/11/22 06:03 01/11/22 08:38 01/11/22 08:00 01/11/22 08:38 Period Temp Pulse Resp BP Sys/Ortiz Pulse Ox Last 24 Hr 98.2 F-99.6 F 88 22-39 108-140/67-95 90-100 Intake and Output 01/10/22 01/11/22 01/11/22 21:59 05:59 13:59 Intake Total 370 560 Output Total 250 201 100 Balance 120 359 -100 Weight 58.513 kg Intake & Output: Intake & Output 01/10/22 01/11/22 01/11/22 21:59 05:59 13:59 Intake Total 370 560 Output Total 250 201 100 Balance 120 359 -100 Weight 58.513 kg Intake: IV 250 500 Sodium Chloride 0.9% 250 ml @ 250 Wide Open IV BOLUS ONE Rx#: [id number] Sodium Chloride 0.9% 500 ml @ 500 75 mls/hr IV BOLUS ONE Rx#: [id number] Oral 120 60 Output: Void Amount 250 200 100 # of times incontinent of urine 1 Other: Meal Dinner Percent of Meal Consumed 50% Urine Appearance Clear Clear Clear Urine Color Tea Colored Dark Aretha Bright Yellow Urine Odor Normal Exam: General: Alert, Awake, No acute Distress, cachexic Eyes/N/T: EOMI, Head/Neck: neck supple, CV: RRR, No murmurs, Pulm: rales/rhonchi right, left mostly clear, no wheezing Abd: soft, nontender, +BS x4 Ext: no clubbing/cyanosis/edema Neuro: Alert, no focal deficits, moves all extremities, Skin: warm/dry OBJ DATA Labs CBC & Chem 7: 01/11/22 05:43 01/11/22 05:43 Labs: Abnormal Lab Results 01/11/22 01/11/22 01/10/22 05:43 05:43 05:07 WBC 20.8 H 20.0 H RBC 3.23 L 3.22 L Hgb 8.8 L 8.6 L Hct 28.0 L 28.6 L MCHC 30.1 L RDW 18.0 H 18.1 H Plt Count 483 H Neut % (Auto) 80.5 H Lymph % (Auto) 8.3 L [place] # (Auto) 1.65 H Seg Neutrophils % Lymphocytes % Absolute Neutrophils 16.11 H Platelet Estimate RBC Morphology Polychromasia Hypochromasia Anisocytosis ESR Glucose GGT AST Alkaline Phosphatase Lactate Dehydrogenase C-Reactive Protein 12.20 H Albumin Albumin/Globulin Ratio 01/10/22 01/09/22 01/09/22 05:06 05:23 05:23 WBC RBC Hgb Hct MCHC RDW Plt Count Neut % (Auto) Lymph % (Auto) [place] # (Auto) Seg Neutrophils % Lymphocytes % Absolute Neutrophils Platelet Estimate RBC Morphology Polychromasia Hypochromasia Anisocytosis ESR 62 H Glucose GGT 210 H AST 35 H Alkaline Phosphatase 272 H Lactate Dehydrogenase 416 H C-Reactive Protein 9.50 H 8.20 H Albumin 2.9 L Albumin/Globulin Ratio 0.8 L 01/09/22 01/09/22 01/08/22 05:23 05:22 05:35 WBC 16.9 H RBC 3.09 L Hgb 8.4 L Hct 27.6 L MCHC 30.4 L RDW 17.7 H Plt Count 484 H Neut % (Auto) Lymph % (Auto) [place] # (Auto) Seg Neutrophils % 84 H Lymphocytes % 12 L 6 L Absolute Neutrophils Platelet Estimate Increased A Increased A RBC Morphology Abnormal A Abnormal A Polychromasia 1+ A Occ A Hypochromasia 1+ A 2+ A Anisocytosis 2+ A 2+ A ESR Glucose 112 H GGT 232 H AST 44 H Alkaline Phosphatase 295 H Lactate Dehydrogenase 403 H C-Reactive Protein Albumin 2.9 L Albumin/Globulin Ratio 0.9 L Meds: Medications Acetaminophen (Acetaminophen 325 Mg Tablet) 650 mg PO Q6HP PRN; Protocol PRN Reason: Per Pain Protocol/Fever > 101 Last Admin: 01/08/22 10:49 Dose: 650 mg Documented by: Hydrocodone Bitart/Acetaminophen (Hydrocodone/Apap 5/325mg Tablet) 1 tab PO Q4HP PRN; Protocol PRN Reason: Per Pain Protocol Last Admin: 01/08/22 07:14 Dose: 1 tab Documented by: Albuterol/Ipratropium (Ipratropium/Albuterol 3 Ml Ampul.Neb) 3 ml NEB Q6HP PRN PRN Reason: Shortness Of Breath Last Admin: 01/10/22 12:21 Dose: 3 ml Documented by: Benzocaine (Benzocaine 1 [place] Bottle) 1 spray TOPICAL Q4HP PRN PRN Reason: Sore Throat Last Admin: 01/10/22 16:58 Dose: 1 spray Documented by: Diphenhydramine HCl (Diphenhydramine 25 Mg Capsule) 25 mg PO HSP PRN PRN Reason: Insomnia Enoxaparin Sodium (Enoxaparin 40 Mg/0.4 Ml Syringe) 40 mg SQ DAILY [facility] Last Admin: 01/10/22 09:20 Dose: 40 mg Documented by: Fluoxetine HCl (Fluoxetine Hcl 20 Mg Capsule) 20 mg PO QDAY [facility] Last Admin: 01/10/22 09:20 Dose: 20 mg Documented by: Hydroxyzine HCl (Hydroxyzine 25 Mg Tablet) 50 mg PO TIDP PRN PRN Reason: anxiety Last Admin: 01/10/22 19:35 Dose: 50 mg Documented by: Lactulose (Lactulose 20 Gm/30 Ml Oral.[place]ma) 10 gm PO DAILYP PRN PRN Reason: Constipation Megestrol Acetate (Megestrol Acetate 400 Mg/10 Ml Udc) 400 mg PO DAILY [facility] Last Admin: 01/10/22 12:49 Dose: 400 mg Documented by: Melatonin (Melatonin 3 Mg Tablet) 6 mg PO HS [facility] Last Admin: 01/10/22 21:26 Dose: 6 mg Documented by: Methocarbamol (Methocarbamol 500 Mg Tablet) 500 mg PO Q8HP PRN PRN Reason: Muscle Spasm Last Admin: 01/10/22 19:40 Dose: 500 mg Documented by: Metoclopramide HCl (Metoclopramide 10 Mg/2 Ml Vial) 10 mg IV Q6HP PRN PRN Reason: Nausea And Vomiting Metronidazole (Metronidazole 500 Mg Tablet) 500 mg PO Q8 [facility]; Protocol Last Admin: 01/11/22 05:28 Dose: 500 mg Documented by: Ondansetron HCl (Ondansetron 4 Mg/2 Ml Vial) 4 mg IV Q4HP PRN; Protocol PRN Reason: Nausea And Vomiting Last Admin: 01/10/22 16:57 Dose: 4 mg Documented by: Polyethylene Glycol (Polyethylene Glycol 3350 17 Gm Packet) 17 gm PO QDAY PRN PRN Reason: c Polysaccharide Iron Complex (Iron Polysaccharide Complex 150 Mg Capsule) 150 mg PO BID [facility] Last Admin: 01/10/22 21:28 Dose: 150 mg Documented by: Promethazine HCl (Promethazine 25 Mg/Ml Vial) 12.5 mg IV Q6HP PRN PRN Reason: Nausea And Vomiting Last Admin: 01/10/22 12:49 Dose: 12.5 mg Documented by: Scopolamine (Scopolamine 1 Patch Patch) 1 patch TOPICAL Q72H [facility] Last Admin: 01/09/22 17:11 Dose: 1 patch Documented by: Senna (Sennosides 1 Tablet) 2 tab PO HSP PRN PRN Reason: Constipation Sodium Chloride (0.9 % Sodium Chloride 10 Ml Syringe) 10 ml IV Q8 [facility] Last Admin: 01/11/22 05:28 Dose: 10 ml Documented by: Temazepam (Temazepam 15 Mg Capsule) 15 mg PO HSP PRN PRN Reason: Insomnia Throat Lozenges (Benzocaine/Menthol 1 Lozenge) 1 lozenge PO PRN PRN PRN Reason: Sore Throat Last Admin: 01/11/22 05:27 Dose: 1 lozenge Documented by: Tramadol HCl (Tramadol 50 Mg Tablet) 50 mg PO Q4-6HP PRN; Protocol PRN Reason: Pain Last Admin: 01/11/22 02:27 Dose: 50 mg Documented by: Vitamin D (Vitamin D3 25 Mcg Tablet) 100 mcg PO DAILY [facility] Last Admin: 01/10/22 11:09 Dose: Not Given Documented by: Zinc Sulfate (Zinc Sulfate 50 Mg Capsule) 50 mg PO DAILY [facility] Last Admin: 01/10/22 11:09 Dose: Not Given Documented by: A/P Narrative A/P Narrative: A: #Acute hypoxic respiratory failure: 2/2 CAP + chronic chemical (gastric acid aspiration) pneumonitis & underlying Bronchiectasis -echo unimpressive -4-6L NC #CAP(atypical vs viral) & ?Aspiration(ST eval no obvious signs): -Positive Mycoplasma IgM, pcr pending, RVP/covid neg -CXR imporved on left, chronic damage on right #h/o possible Interstitial Lung Disease: #Persistend leukocytosis: periph smear unremarkable #Recent Right Hip Fx s/p ORIF (12/05/2021) #Anemia,acute on chronic s/p hip surgery + KARLOS: stable #Generalized weakness: #Depression: #Chr hip pain: prn tramadol #Cachexia: #Generalized weakness/deconditioning: Not working with physical therapy very well #Goals of care: Plan -Dr. Mtz consulted > no change in treatment plan. likely underlying severe chronic lung damage on right -Continue Levofloxacin/Flagyl IV for now -Oxygen supplementation (wean) -Mycoplasma PCR pending -Holding home lasix for now, poor oral intake -iron supp -PT and OT consult -Disposition: Probably SNF for rehab -f/u with Pulmonary oupt -ppx: Lovenox Code status: DNR Time Spent With Patient Time: Total time spent is greater than 50% in coordination of care (as documented) at patient's floor/unit and/or counseling patient:
[2022-01-11] MEDS: ZINC SULFATE 50 MG CAPSULE PO SCH ×2 (11:13→11:39)
[2022-01-11] MEDS: methylPREDNISolone SOD SUCC 125 MG/2 ML VIAL IV SCH ×2 (11:13→21:29)
[2022-01-11] MEDS: ENOXAPARIN 40 MG/0.4 ML SYRINGE SQ SCH (11:13)
[2022-01-11] MEDS: FLUoxetine HCL 20 MG CAPSULE PO SCH (11:13)
[2022-01-11 11:14] LABS: Anisocytosis 1+ (None Seen); Band Neutrophils % 1 % (0-10); Eosinophils % (Manual) 2 % (0-7); Lymphocytes % 10 % (15-49); Microcytosis 1+ (None Seen); Monocytes % (Manual) 4 % (1-12); Platelet Estimate NORMAL (Normal); Polychromasia FEW (None Seen); RBC Morphology ABNORMAL (Normal); Segmented Neutrophils % 83 % (38-78)
[2022-01-11] MEDS: VITAMIN D3 25 MCG TABLET PO SCH ×2 (11:14→11:40)
[2022-01-11] MEDS: MEGESTROL ACETATE 400 MG/10 ML UDC PO SCH (11:14)
[2022-01-11] MEDS: IRON POLYSACCHARIDE COMPLEX 150 MG CAPSULE PO SCH ×2 (11:14→21:28)
[2022-01-11] MEDS: MELATONIN 3 MG TABLET PO SCH (21:28)
[2022-01-11] MEDS: TEMAZEPAM 15 MG CAPSULE PO PRN (21:28)
[2022-01-11] MEDS: METHOCARBAMOL 500 MG TABLET PO PRN (21:38)
[2022-01-12] MEDS: ACETAMINOPHEN 325 MG TABLET PO PRN (05:35)
[2022-01-12] MEDS: metroNIDAZOLE 500 MG TABLET PO SCH (05:35)
[2022-01-12] MEDS: METHOCARBAMOL 500 MG TABLET PO PRN ×2 (05:35→20:21)
[2022-01-12] MEDS: 0.9 % SODIUM CHLORIDE 10 ML SYRINGE IV SCH ×3 (05:40→20:22)
--- NOTE | 2022-01-12 08:12 | Internal Med Progress Note ---
SUBJECTIVE Subjective Patient information: Note initiated : 01/12/22 at 8:11 am Service Date, if different from initiated Date: [] Patient: Bianka Peterson a 76 y/o F admitted on 01/05/22 for Shortness of breath. Chief Complaint: [] Principal diagnosis: shortness of breath Interval history: Ms. Peterson is a 76 year old female with a history of chronic kidney disease stage III, concern for possible interstitial lung disease, recent right hip periprosthetic fracture status post ORIF in November, who has been in a residential facility following surgery for rehab. Present presented to the emergency department for shortness of breath that started the week prior to admission. While at the SNF, the patient was started on Lasix for bilateral lower extremity edema. The patient also recently had a CT chest without contrast that showed right diffuse groundglass alveolar infiltrates involving the right upper, right middle and right lower lobe. There was a small left upper lobe infiltrate. The patient was recently seen in the emergency department for epistaxis that resolved after cauterization in the emergency department. In the emergency department on the day of hospital admission, the patient required 6 L/min oxygen supplementation. The patient had leukocytosis however was afebrile and did not have a cough. Hemoglobin is lower than 2 days prior to admission at 7.6 down from 8.9. NT pro BNP was elevated at 1512. EKG did not show any acute ischemic changes, troponin was normal. The patient does have bilateral lower extremity, right greater than left and received a dose of IV Lasix in the emergency department. Hospital medicine was consulted to admit the patient for acute hypoxic respiratory failure. I discussed the plan of admission with the patient and family members at the bedside, all questions answered to the best my ability. We discussed CODE STATUS in detail, the patient will discuss this with her family prior to making a decision. 01/06 Much better today, mycoplasma IgM positive. CTA chest was negative for PE, showed predominantly right sided diffuse infiltrates. PANTHER and Respiratory panel negative. MRSA nasal PCR negative. Continue levofloxacin IV today. Continues to require about 6 L/min oxygen supplementation. Started dysphagia diet, awaiting speech evaluating. 01/07 Does not feel as good today as yesterday, chest xray ordered. Started on stress does hydrocortisone as the patient was receiving prednisone 20 mg daily prior to admission for an unknown duration. Speech continued dysphagia diet, mildly thick liquids. Continue Levofloxacin IV. TTE pending. 01/08 Patient has chronic hip pain and does not like the [place], will try tramadol. Oxygen requirement fluctuating between 3 and 8 L. N.p.o. until seen by speech therapy. Occasional cough and shortness of breath Complained of upset stomach and some nausea but no vomiting. Leukocytosis likely from high-dose steroids yesterday. 01/09 Patient is on 5 L nasal cannula sats low 90s. Shortness of breath overall improved. She has a mild occasional dry cough. Seems anxious. Poor appetite. 01/10 Patient is requiring 4 to 8 L of nasal cannula. Patient seen by pulmonology Dr. Mtz last night, no change in treatment plan. Reported CT scan showed right hemithorax with significant bronchiectasis changes as suspected in chronic reflux aspiration. Patient seems to get anxious quite easily. She has poor appetite and not eating very well. Seems to have failure to thrive. She does report that she has noticed that when she walks her dog she becomes extremely exhausted and worn out afterwards. And she says she has been declining in this regard for the past year. 01/11 Patient anxious still complains of nausea on awakening trial and sitting up with nurses. On 4 to 6 L nasal cannula. Discussed CODE STATUS with the patient and she decided to do on a DO NOT RESUSCITATE. Sore throat better with the supper call lozenges. 01/12 Oxygen requirement still fluctuating. Patient ate more of her diet today. Seems to be a little bit more energetic. Review of Systems: denies headache/fever/chills/vomiting/chest or abdominal pain/diarrhea. Otherwise see above. Constitutional Vitals: Vital Signs Temp Pulse Resp BP Pulse Ox 98.0 F 88 28 H 144/91 96 01/12/22 04:00 01/12/22 05:56 01/12/22 06:01 01/12/22 06:01 01/12/22 06:01 Period Temp Pulse Resp BP Sys/Ortiz Pulse Ox Last 24 Hr 97.8 F-98.8 F 88 21-46 111-196/68-179 80-98 Intake and Output 01/11/22 01/12/22 01/12/22 21:59 05:59 13:59 Intake Total 120 60 Output Total 200 175 Balance -80 -115 Weight 58.014 kg Intake & Output: Intake & Output 01/11/22 01/12/22 01/12/22 21:59 05:59 13:59 Intake Total 120 60 Output Total 200 175 Balance -80 -115 Weight 58.014 kg Intake: Oral 120 60 Output: Void Amount 200 175 Other: Meal Dinner Percent of Meal Consumed 50% Urine Appearance Clear Clear Urine Color Dark Aretha Dark Aretha Urine Odor Normal Normal Stool Size Moderate Stool Color Brown Green Stool Consistency Soft # Bowel Movements 1 Exam: General: Alert, Awake, No acute Distress, cachexic Eyes/N/T: EOMI, Head/Neck: neck supple, CV: RRR, No murmurs, Pulm: rales/rhonchi right, left mostly clear, no wheezing Abd: soft, nontender, +BS x4 Ext: no clubbing/cyanosis/edema Neuro: Alert, no focal deficits, moves all extremities, Skin: warm/dry OBJ DATA Labs CBC & Chem 7: 01/11/22 05:43 01/11/22 05:43 Labs: Abnormal Lab Results 01/11/22 01/11/22 01/10/22 05:43 05:43 05:07 WBC 20.8 H 20.0 H RBC 3.23 L 3.22 L Hgb 8.8 L 8.6 L Hct 28.0 L 28.6 L MCHC 30.1 L RDW 18.0 H 18.1 H Plt Count 483 H Neut % (Auto) 80.5 H Lymph % (Auto) 8.3 L [place] # (Auto) 1.65 H Seg Neutrophils % 83 H Lymphocytes % 10 L Absolute Neutrophils 16.11 H Platelet Estimate RBC Morphology Abnormal A Polychromasia Few A Hypochromasia Anisocytosis 1+ A Microcytosis 1+ A ESR GGT AST Alkaline Phosphatase Lactate Dehydrogenase C-Reactive Protein 12.20 H Albumin Albumin/Globulin Ratio 01/10/22 01/09/22 01/09/22 05:06 05:23 05:23 WBC RBC Hgb Hct MCHC RDW Plt Count Neut % (Auto) Lymph % (Auto) [place] # (Auto) Seg Neutrophils % Lymphocytes % 12 L Absolute Neutrophils Platelet Estimate Increased A RBC Morphology Abnormal A Polychromasia 1+ A Hypochromasia 1+ A Anisocytosis 2+ A Microcytosis ESR 62 H GGT 210 H AST 35 H Alkaline Phosphatase 272 H Lactate Dehydrogenase 416 H C-Reactive Protein 9.50 H Albumin 2.9 L Albumin/Globulin Ratio 0.8 L Meds: Medications Acetaminophen (Acetaminophen 325 Mg Tablet) 650 mg PO Q6HP PRN; Protocol PRN Reason: Per Pain Protocol/Fever > 101 Last Admin: 01/12/22 05:35 Dose: 650 mg Documented by: Hydrocodone Bitart/Acetaminophen (Hydrocodone/Apap 5/325mg Tablet) 1 tab PO Q4HP PRN; Protocol PRN Reason: Per Pain Protocol Last Admin: 01/08/22 07:14 Dose: 1 tab Documented by: Albuterol/Ipratropium (Ipratropium/Albuterol 3 Ml Ampul.Neb) 3 ml NEB Q6HP PRN PRN Reason: Shortness Of Breath Last Admin: 01/10/22 12:21 Dose: 3 ml Documented by: Benzocaine (Benzocaine 1 [place] Bottle) 1 spray TOPICAL Q4HP PRN PRN Reason: Sore Throat Last Admin: 01/10/22 16:58 Dose: 1 spray Documented by: Diphenhydramine HCl (Diphenhydramine 25 Mg Capsule) 25 mg PO HSP PRN PRN Reason: Insomnia Enoxaparin Sodium (Enoxaparin 40 Mg/0.4 Ml Syringe) 40 mg SQ DAILY [facility] Last Admin: 01/11/22 11:13 Dose: 40 mg Documented by: Fluoxetine HCl (Fluoxetine Hcl 20 Mg Capsule) 20 mg PO QDAY [facility] Last Admin: 01/11/22 11:13 Dose: 20 mg Documented by: Hydroxyzine HCl (Hydroxyzine 25 Mg Tablet) 50 mg PO TIDP PRN PRN Reason: anxiety Last Admin: 01/10/22 19:35 Dose: 50 mg Documented by: Lactulose (Lactulose 20 Gm/30 Ml Oral.[place]) 10 gm PO DAILYP PRN PRN Reason: Constipation Megestrol Acetate (Megestrol Acetate 400 Mg/10 Ml Udc) 400 mg PO DAILY [facility] Last Admin: 01/11/22 11:14 Dose: 400 mg Documented by: Melatonin (Melatonin 3 Mg Tablet) 6 mg PO HS [facility] Last Admin: 01/11/22 21:28 Dose: 6 mg Documented by: Methocarbamol (Methocarbamol 500 Mg Tablet) 500 mg PO Q8HP PRN PRN Reason: Muscle Spasm Last Admin: 01/12/22 05:35 Dose: 500 mg Documented by: Methylprednisolone Sodium Succinate (Methylprednisolone Sod Succ 125 Mg/2 Ml Vial) 62.5 mg IV Q12 [facility] Last Admin: 01/11/22 21:29 Dose: 62.5 mg Documented by: Metoclopramide HCl (Metoclopramide 10 Mg/2 Ml Vial) 10 mg IV Q6HP PRN PRN Reason: Nausea And Vomiting Metronidazole (Metronidazole 500 Mg Tablet) 500 mg PO Q8 [facility]; Protocol Last Admin: 01/12/22 05:35 Dose: 500 mg Documented by: Ondansetron HCl (Ondansetron 4 Mg/2 Ml Vial) 4 mg IV Q4HP PRN; Protocol PRN Reason: Nausea And Vomiting Last Admin: 01/10/22 16:57 Dose: 4 mg Documented by: Polyethylene Glycol (Polyethylene Glycol 3350 17 Gm Packet) 17 gm PO QDAY PRN PRN Reason: c Polysaccharide Iron Complex (Iron Polysaccharide Complex 150 Mg Capsule) 150 mg PO BID [facility] Last Admin: 01/11/22 21:28 Dose: 150 mg Documented by: Promethazine HCl (Promethazine 25 Mg/Ml Vial) 12.5 mg IV Q6HP PRN PRN Reason: Nausea And Vomiting Last Admin: 01/10/22 12:49 Dose: 12.5 mg Documented by: Scopolamine (Scopolamine 1 Patch Patch) 1 patch TOPICAL Q72H [facility] Last Admin: 01/09/22 17:11 Dose: 1 patch Documented by: Senna (Sennosides 1 Tablet) 2 tab PO HSP PRN PRN Reason: Constipation Sodium Chloride (0.9 % Sodium Chloride 10 Ml Syringe) 10 ml IV Q8 [facility] Last Admin: 01/12/22 05:40 Dose: 10 ml Documented by: Temazepam (Temazepam 15 Mg Capsule) 15 mg PO HSP PRN PRN Reason: Insomnia Last Admin: 01/11/22 21:28 Dose: 15 mg Documented by: Throat Lozenges (Benzocaine/Menthol 1 Lozenge) 1 lozenge PO PRN PRN PRN Reason: Sore Throat Last Admin: 01/11/22 05:27 Dose: 1 lozenge Documented by: Tramadol HCl (Tramadol 50 Mg Tablet) 50 mg PO Q4-6HP PRN; Protocol PRN Reason: Pain Last Admin: 01/11/22 21:28 Dose: 50 mg Documented by: Vitamin D (Vitamin D3 25 Mcg Tablet) 100 mcg PO DAILY [facility] Last Admin: 01/11/22 11:40 Dose: Not Given Documented by: Zinc Sulfate (Zinc Sulfate 50 Mg Capsule) 50 mg PO DAILY [facility] Last Admin: 01/11/22 11:39 Dose: Not Given Documented by: A/P Narrative A/P Narrative: A: #Acute hypoxic respiratory failure: 2/2 CAP + chronic chemical (gastric acid aspiration) pneumonitis & underlying Bronchiectasis -echo unimpressive -4-6L NC #CAP(atypical vs viral) & ?Aspiration(ST eval no obvious signs): -Positive Mycoplasma IgM but PCR negative, RVP/covid neg -CXR imporved on left, chronic damage on right #h/o possible Interstitial Lung Disease: #Persistend leukocytosis: periph smear unremarkable, no bandemia, afebrile #Oropharyngeal Dysphagia,mild: #Recent Right Hip Fx s/p ORIF (12/05/2021) #Anemia,acute on chronic s/p hip surgery + KARLOS: stable #Generalized weakness: #Depression: #Chr hip pain: prn tramadol #Cachexia: #Generalized weakness/deconditioning: Not working with physical therapy very well #Goals of care: Plan -Dr. Mtz consulted > no change in treatment plan. likely underlying severe chronic lung damage on right -Abx completed -Oxygen supplementation (wean) -Holding home lasix for now, poor oral intake -iron supp -PT and OT consult -dysphagia diet per ST -Disposition: to SNF likely -f/u with Pulmonary oupt -ppx: Lovenox Code status: DNR Time Spent With Patient Time: Total time spent is greater than 50% in coordination of care (as documented) at patient's floor/unit and/or counseling patient:
[2022-01-12] MEDS: methylPREDNISolone SOD SUCC 125 MG/2 ML VIAL IV SCH (09:28)
[2022-01-12] MEDS: MEGESTROL ACETATE 400 MG/10 ML UDC PO SCH (09:28)
[2022-01-12] MEDS: FLUoxetine HCL 20 MG CAPSULE PO SCH (09:29)
[2022-01-12] MEDS: traMADol 50 MG TABLET PO PRN ×3 (09:29→20:21)
[2022-01-12] MEDS: ZINC SULFATE 50 MG CAPSULE PO SCH ×2 (09:29→09:45)
[2022-01-12] MEDS: VITAMIN D3 25 MCG TABLET PO SCH (09:29)
[2022-01-12] MEDS: IRON POLYSACCHARIDE COMPLEX 150 MG CAPSULE PO SCH ×2 (09:29→20:21)
[2022-01-12] MEDS: ENOXAPARIN 40 MG/0.4 ML SYRINGE SQ SCH (09:30)
[2022-01-12] MEDS: SCOPOLAMINE 1 PATCH PATCH TOPICAL SCH (16:35)
[2022-01-12] MEDS: MELATONIN 3 MG TABLET PO SCH (20:22)
[2022-01-12] MEDS: hydrOXYzine 25 MG TABLET PO PRN (22:46)
[2022-01-13] MEDS: 0.9 % SODIUM CHLORIDE 10 ML SYRINGE IV SCH ×3 (05:31→20:35)
[2022-01-13 07:06] LABS: Basophils # (Auto) 0.05 K/mcL (0.00-0.30); Basophils % (Auto) 0.2 % (0.0-2.0); Eosinophils # (Auto) 0 K/mcL (0.00-0.70); Eosinophils % (Auto) 0 % (0.0-7.0); Hematocrit 28.6 % (34.1-44.9); Hemoglobin 8.6 g/dL (11.2-15.7); Lymphocytes # (Auto) 1.12 K/mcL (1.50-4.80); Lymphocytes % (Auto) 3.5 % (15.5-49.0); Mean Corpuscular HGB Conc 30.1 g/dL (31.0-36.0); Mean Platelet Volume 10.3 fL (7.4-10.4); Monocytes # (Auto) 2.45 K/mcL (0.10-0.90); Monocytes % (Auto) 7.6 % (1.0-12.0); Neutrophils % (Auto) 88.7 % (38.0-78.0); Platelet Count 522 K/mcL (140-440); RBC 3.25 M/mcL (3.59-5.38); Red Cell Distribution Width 18.3 % (11.5-14.5); WBC 32.3 K/mcL (4.5-11.0)
[2022-01-13 07:15] LABS: Erythrocyte Sedimentation Rate 74 mm/hr (0-30)
[2022-01-13] MEDS: ENOXAPARIN 40 MG/0.4 ML SYRINGE SQ SCH (08:11)
[2022-01-13] MEDS: IRON POLYSACCHARIDE COMPLEX 150 MG CAPSULE PO SCH ×2 (08:11→20:31)
[2022-01-13] MEDS: FLUoxetine HCL 20 MG CAPSULE PO SCH (08:12)
[2022-01-13] MEDS: ZINC SULFATE 50 MG CAPSULE PO SCH (08:12)
[2022-01-13] MEDS: MEGESTROL ACETATE 400 MG/10 ML UDC PO SCH (08:12)
[2022-01-13] MEDS: VITAMIN D3 25 MCG TABLET PO SCH (08:12)
[2022-01-13] MEDS ORDERED: DIAZEPAM 2 MG TABLET PO PRN (10:25)
--- NOTE | 2022-01-13 10:54 | XRay Report ---
CLINICAL INFORMATION: Follow-up infiltrate COMPARISON: 01/08/2022 TECHNIQUE: Portable FINDINGS: The heart size, mediastinum and pulmonary vessels are unremarkable. Large patchy infiltrate throughout the right lung shows slight worsening in the lower region since exam five days ago. Small left lower lung infiltrate has worsened slightly. A new vague small infiltrate is developed in the left upper lung. Smaller pleural effusions are unchanged. The bones and soft tissues are within normal limits. IMPRESSION: Large infiltrate diffusely in the right lung shows worsening in the right lower region since the exam five days ago. New small vague infiltrate developing in the left upper lung. Small left lung infiltrate also progressing Interpreted and Authenticated by: Sergei Trejo 01/13/22
[2022-01-13] MEDS ORDERED: PANTOPRAZOLE 40 MG VIAL IV ONE (11:47)
--- NOTE | 2022-01-13 12:34 | Cat Scan Report ---
CLINICAL INFORMATION: Right lung infiltrate/follow-up COMPARISON: Chest CT 05/19/2016 and 01/05/2022 TECHNIQUE: 0.625 mm axial slices were obtained from the lung apices through the bases without intravenous contrast. 2.5 mm Sagittal, coronal and axial reformatted images were processed and reviewed at bone, lung and soft tissue windows. 7 mm axial MIP images were also reconstructed to optimize pulmonary nodule detection.The exam was performed using radiation dose optimization techniques including, but not limited to, automated exposure control, adjustment of the mA and/or kV according to patient size and use of iterative reconstruction technique. FINDINGS: Pulmonary parenchymal windows to progressive large patchy alveolar and groundglass infiltrates throughout the right upper, middle and lower lobes with relative sparing of the lower lobe basilar segments. Moderate tubular and varicose bronchiectasis within the lobar, segmental and subsegmental bronchi in the right upper middle and lower lobes has progressed since the remote CT from 2015. Small right pleural effusion is unchanged from the previous exam. New vague moderate groundglass infiltrates have developed in the posterior left upper and paramediastinal anterior segments of the left upper lobe. Small region of cicitration atelectasis with associated bronchiectasis in the in the lingular region seen as before. Small patchy infiltrates throughout the left lower lobe are also new. No evidence of left pleural effusion. Mediastinal windows show severe pectus excavatum which accentuates the heart size. The noncontrasted thoracic aorta and pulmonary arteries are normal diameter. A few mildly enlarged lymph nodes in the lower mediastinum are unchanged and should represent benign reactive adenopathy. The esophagus is normal. The thyroid is unremarkable. Bone windows show severe scoliotic curve as previously seen. No focal osseous lesions. Images through the upper abdomen show cholecystectomy changes. IMPRESSION: Large groundglass/alveolar infiltrates throughout the right lung with relative sparing of the lower lobe basilar segments. This has progressed from the comparison CT over one week prior: 01/05/2022. Tubular and varicose bronchiectasis within the right lung have progressed since the remote study and may predispose to infection. Small groundglass infiltrates in the anterior and posterior segment left upper lobe and also scattered in the left lower lobe are new from prior CT. Cicitration atelectasis in the lingular region is stable. Severe pectus excavatum which accentuates the heart size. Interpreted and Authenticated by: Sergei Trejo 01/13/22
[2022-01-13] MEDS: traMADol 50 MG TABLET PO PRN ×2 (12:44→20:30)
--- NOTE | 2022-01-13 18:10 | Internal Med Progress Note ---
SUBJECTIVE Subjective Patient information: Note initiated : 01/13/22 at 6:00 pm Service Date, if different from initiated Date: [] Patient: Bianka Peterson a 76 y/o F admitted on 01/05/22 for Shortness of breath. Chief Complaint: [] Principal diagnosis: shortness of breath Interval history: Ms. Peterson is a 76 year old female with a history of chronic kidney disease stage III, concern for possible interstitial lung disease, recent right hip periprosthetic fracture status post ORIF in November,who has been in a [facility] nursing facility following surgery for rehab. Present presented to the emergency department for shortness of breath that started the week prior to admission. While at the SNF, the patient was started on Lasix for bilateral lower extremity edema. The patient also recently had a CT chest without contrast that showed right diffuse groundglass alveolar infiltrates involving the right upper, right middle and right lower lobe. There was a small left upper lobe infiltrate. The patient was recently seen in the emergency department for epistaxis that resolved after cauterization in the emergency department. In the emergency department on the day of hospital admission, the patient required 6 L/min oxygen supplementation. The patient had leukocytosis however was afebrile and did not have a cough. Hemoglobin is lower than 2 days prior to admission at 7.6 down from 8.9. NT pro BNP was elevated at 1512. EKG did not show any acute ischemic changes, troponin was normal. The patient does have bilateral lower extremity, right greater than left and received a dose of IV Lasix in the emergency department. Hospital medicine was consulted to admit the patient for acute hypoxic respiratory failure. I discussed the plan of admission with the patient and family members at the bedside, all questions answered to the best my ability. We discussed CODE STATUS in detail, the patient will discuss this with her family prior to making a decision. 01/06 Much better today, mycoplasma IgM positive. CTA chest was negative for PE, showed predominantly right sided diffuse infiltrates. PANTHER and Respiratory panel negative. MRSA nasal PCR negative. Continue levofloxacin IV today. Continues to require about 6 L/min oxygen supplementation. Started dysphagia diet, awaiting speech evaluating. 01/07 Does not feel as good today as yesterday, chest xray ordered. Started on stress does hydrocortisone as the patient was receiving prednisone 20 mg daily prior to admission for an unknown duration. Speech continued dysphagia diet, mildly thick liquids. Continue Levofloxacin IV. TTE pending. 01/08 Patient has chronic hip pain and does not like the [place], will try tramadol. Oxygen requirement fluctuating between 3 and 8 L. N.p.o. until seen by speech therapy. Occasional cough and shortness of breath Complained of upset stomach and some nausea but no vomiting. Leukocytosis likely from high-dose steroids yesterday. 01/09 Patient is on 5 L nasal cannula sats low 90s. Shortness of breath overall improved. She has a mild occasional dry cough. Seems anxious. Poor appetite. 01/10 Patient is requiring 4 to 8 L of nasal cannula. Patient seen by pulmonology Dr. Mtz last night, no change in treatment plan. Reported CT scan showed right hemithorax with significant bronchiectasis changes as suspected in chronic reflux aspiration. Patient seems to get anxious quite easily. She has poor appetite and not eating very well. Seems to have failure to thrive. She does report that she has noticed that when she walks her dog she becomes extremely exhausted and worn out afterwards. And she says she has been declining in this regard for the past year. 01/11 Patient anxious still complains of nausea on awakening trial and sitting up with nurses. On 4 to 6 L nasal cannula. Discussed CODE STATUS with the patient and she decided to do on a DO NOT RESUSCITATE. Sore throat better with the supper call lozenges. 01/12 Oxygen requirement still fluctuating. Patient ate more of her diet today. Seems to be a little bit more energetic. 01/13 Discussed the patient with [facility] for transfer, currently no beds available. Pulmonology on-call at [facility] feels that the patient's presentation is most likely due to aspiration acute lung injury which has now progressed to ARDS. There is a potential role for penicillins according to pulmonology, started a course of Zosyn. WBC has increased today, possibly secondary to recent systemic steroids. We will keep the patient's head at a 30 to 45 degree upright angle to decrease the risk of aspiration. Video swallow study planned for tomorrow. Added Valium as needed for anxiety. Physical exam Head: Atraumatic, normal inspection. Eyes: normal appearance, no scleral icterus. Neck: full ROM Respiratory: 10 L/min oxygen supplementation, respiratory rate in the low 30s with accessory muscle use. Cardiovascular: Regular tachycardia, S1, S2. GI/Abdominal: soft, nontender, no guarding. Extremities: full range of motion, nontender. Neurological: CN II-XII intact, intact motor, intact sensation. Psychiatric: normal mood. Skin: warm, normal color Constitutional Vitals: Vital Signs Temp Pulse Resp BP Pulse Ox 98.4 F 99 H 27 H 172/104 93 01/13/22 15:01 01/13/22 17:50 01/13/22 17:50 01/13/22 17:50 01/13/22 17:50 Period Temp Pulse Resp BP Sys/Ortiz Pulse Ox Last 24 Hr 97.1 F-98.7 F 99-104 21-47 119-172/69-107 85-100 Intake and Output 01/13/22 01/13/22 01/13/22 05:59 13:59 21:59 Intake Total 240 150 Output Total 185 150 175 Balance -185 90 -25 Intake & Output: Intake & Output 01/13/22 01/13/22 01/13/22 05:59 13:59 21:59 Intake Total 240 150 Output Total 185 150 175 Balance -185 90 -25 Intake: Nourishment/Supplement quantity 150 (ml) Oral 240 Output: Void Amount 185 150 175 Other: Nourishment/Supplement name Ensure Urine Appearance Clear Clear Clear Urine Color Dark Aretha Dark Aretha Dark Yellow Urine Odor Strong Normal OBJ DATA Labs CBC & Chem 7: 01/13/22 05:20 01/11/22 05:43 Labs: Abnormal Lab Results 01/13/22 01/13/22 01/11/22 05:20 05:20 05:43 WBC 32.3 H* RBC 3.25 L Hgb 8.6 L Hct 28.6 L MCHC 30.1 L RDW 18.3 H Plt Count 522 H Neut % (Auto) 88.7 H Lymph % (Auto) 3.5 L Lymph # (Auto) 1.12 L Winston # (Auto) 2.45 H Seg Neutrophils % Lymphocytes % Absolute Neutrophils 28.63 H RBC Morphology Polychromasia Anisocytosis Microcytosis ESR 74 H C-Reactive Protein 7.70 H 12.20 H 01/11/22 05:43 WBC 20.8 H RBC 3.23 L Hgb 8.8 L Hct 28.0 L MCHC RDW 18.0 H Plt Count Neut % (Auto) Lymph % (Auto) Lymph # (Auto) Winston # (Auto) Seg Neutrophils % 83 H Lymphocytes % 10 L Absolute Neutrophils RBC Morphology Abnormal A Polychromasia Few A Anisocytosis 1+ A Microcytosis 1+ A ESR C-Reactive Protein Meds: Medications Acetaminophen (Acetaminophen 325 Mg Tablet) 650 mg PO Q6HP PRN; Protocol PRN Reason: Per Pain Protocol/Fever > 101 Last Admin: 01/12/22 05:35 Dose: 650 mg Documented by: Hydrocodone Bitart/Acetaminophen (Hydrocodone/Apap 5/325mg Tablet) 1 tab PO Q4HP PRN; Protocol PRN Reason: Per Pain Protocol Last Admin: 01/08/22 07:14 Dose: 1 tab Documented by: Acetylcysteine (Acetylcysteine 800 Mg/4 Ml Vial) 600 mg NEB QID FELIPE Albuterol/Ipratropium (Ipratropium/Albuterol 3 Ml Ampul.Neb) 3 ml NEB Q6HP PRN PRN Reason: Shortness Of Breath Last Admin: 01/10/22 12:21 Dose: 3 ml Documented by: Benzocaine (Benzocaine 1 [place] Bottle) 1 spray TOPICAL Q4HP PRN PRN Reason: Sore Throat Last Admin: 01/10/22 16:58 Dose: 1 spray Documented by: Diazepam (Diazepam 2 Mg Tablet) 5 mg PO BIDP PRN PRN Reason: anxiety Diphenhydramine HCl (Diphenhydramine 25 Mg Capsule) 25 mg PO HSP PRN PRN Reason: Insomnia Enoxaparin Sodium (Enoxaparin 40 Mg/0.4 Ml Syringe) 40 mg SQ DAILY [facility] Last Admin: 01/13/22 08:11 Dose: 40 mg Documented by: Fluoxetine HCl (Fluoxetine Hcl 20 Mg Capsule) 20 mg PO QDAY [facility] Last Admin: 01/13/22 08:12 Dose: 20 mg Documented by: Hydrocortisone (Hydrocortisone Crm 1% Tube 30gm) 1 dose TOPICAL BID FELIPE Hydroxyzine HCl (Hydroxyzine 25 Mg Tablet) 50 mg PO TIDP PRN PRN Reason: anxiety Last Admin: 01/12/22 22:46 Dose: 50 mg Documented by: Piperacillin Sod/Tazobactam (Sod 4.5 gm/ Dextrose) 50 mls @ 100 mls/hr IV Q6H [facility]; Protocol Stop: 01/18/22 17:59 Lactulose (Lactulose 20 Gm/30 Ml Oral.Alma) 10 gm PO DAILYP PRN PRN Reason: Constipation Megestrol Acetate (Megestrol Acetate 400 Mg/10 Ml Udc) 400 mg PO DAILY [facility] Last Admin: 01/13/22 08:12 Dose: 400 mg Documented by: Melatonin (Melatonin 3 Mg Tablet) 6 mg PO HS [facility] Last Admin: 01/12/22 20:22 Dose: 6 mg Documented by: Methocarbamol (Methocarbamol 500 Mg Tablet) 500 mg PO Q8HP PRN PRN Reason: Muscle Spasm Last Admin: 01/12/22 20:21 Dose: 500 mg Documented by: Metoclopramide HCl (Metoclopramide 10 Mg/2 Ml Vial) 10 mg IV Q6HP PRN PRN Reason: Nausea And Vomiting Ondansetron HCl (Ondansetron 4 Mg/2 Ml Vial) 4 mg IV Q4HP PRN; Protocol PRN Reason: Nausea And Vomiting Last Admin: 01/10/22 16:57 Dose: 4 mg Documented by: Pantoprazole Sodium ([facility]op[facility] 40 Mg Vial) [facility] Polyethylene Glycol (Polyethylene Glycol 3350 17 Gm Packet) 17 gm PO QDAY PRN PRN Reason: c Polysaccharide Iron Complex (Iron Polysaccharide Complex 150 Mg Capsule) 150 mg PO BID [facility] Last Admin: 01/13/22 08:11 Dose: 150 mg Documented by: Promethazine HCl (Promethazine 25 Mg/Ml Vial) 12.5 mg IV Q6HP PRN PRN Reason: Nausea And Vomiting Last Admin: 01/10/22 12:49 Dose: 12.5 mg Documented by: Scopolamine (Scopolamine 1 Patch Patch) 1 patch TOPICAL Q72H [facility] Last Admin: 01/12/22 16:35 Dose: 1 patch Documented by: Senna (Sennosides 1 Tablet) 2 tab PO HSP PRN PRN Reason: Constipation Sodium Chloride (0.9 % Sodium Chloride 10 Ml Syringe) 10 ml IV Q8 [facility] Last Admin: 01/13/22 12:34 Dose: 10 ml Documented by: Temazepam (Temazepam 15 Mg Capsule) 15 mg PO HSP PRN PRN Reason: Insomnia Last Admin: 01/11/22 21:28 Dose: 15 mg Documented by: Throat Lozenges (Benzocaine/Menthol 1 Lozenge) 1 lozenge PO PRN PRN PRN Reason: Sore Throat Last Admin: 01/11/22 05:27 Dose: 1 lozenge Documented by: Tramadol HCl (Tramadol 50 Mg Tablet) 50 mg PO Q4-6HP PRN; Protocol PRN Reason: Pain Last Admin: 01/13/22 12:44 Dose: 50 mg Documented by: Vitamin D (Vitamin D3 25 Mcg Tablet) 100 mcg PO DAILY [facility] Last Admin: 01/13/22 08:12 Dose: 100 mcg Documented by: Zinc Sulfate (Zinc Sulfate 50 Mg Capsule) 50 mg PO DAILY [facility] Last Admin: 01/13/22 08:12 Dose: 50 mg Documented by: A/P Narrative A/P Narrative: A: #Acute hypoxic respiratory failure: 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 & underlying Bronchiectasis -Probable acute lung injury that has progressed to ARDS -echo unimpressive -4-6L NC #Possible CAP(atypical vs viral) & ?Aspiration(ST eval no obvious signs): -Positive Mycoplasma IgM but PCR negative, RVP/covid neg -CXR imporved on left, chronic damage on right #h/o possible Interstitial Lung Disease: #Persistent leukocytosis: periph smear unremarkable, no bandemia, afebrile #Oropharyngeal Dysphagia,mild: #Recent Right Hip Fx s/p ORIF (12/05/2021) #Anemia,acute on chronic s/p hip surgery + KARLOS: stable #Generalized weakness: #Anxiety #Depression: #Chr hip pain: prn tramadol #Cachexia: #Generalized weakness/deconditioning: Not working with physical therapy very well #Guarded prognosis Plan -Started Zosyn IV every 6 hours. -Start Protonix IV twice daily. -Valium p.o. as needed for anxiety. -Oxygen supplementation -Keep head of bed elevated 30 to 45 degrees. -Holding home lasix for now, poor oral intake -iron supp -PT and OT consult -dysphagia diet per ST -Speech following, video swallow study planned. -Dr. Mtz consulted > no change in treatment plan. likely underlying severe chronic lung damage on right -f/u with Pulmonary outpatient -ppx: Lovenox -CODE STATUS: DNR/DNI -Disposition: TBD Code status: DNR Time Spent With Patient Time: Total time spent is greater than 50% in coordination of care (as documented) at patient's floor/unit and/or counseling patient:
[2022-01-13] MEDS: PIPERACILLIN SODIUM/TAZOBACTAM 4.5 GM in DEXTROSE 5% IN WATER 50 ML IV SCH (20:06)
[2022-01-13] MEDS: IPRATROPIUM/ALBUTEROL 3 ML AMPUL.NEB NEB PRN (20:29)
[2022-01-13] MEDS: ACETYLCYSTEINE 800 MG/4 ML VIAL NEB SCH (20:29)
[2022-01-13] MEDS: MELATONIN 3 MG TABLET PO SCH (20:30)
[2022-01-13] MEDS: METHOCARBAMOL 500 MG TABLET PO PRN (20:31)
[2022-01-13] MEDS: DIAZEPAM 2 MG TABLET PO PRN (20:31)
[2022-01-13] MEDS: PANTOPRAZOLE 40 MG VIAL IV SCH (20:32)
[2022-01-13] MEDS: HYDROCORTISONE CRM 1% TUBE 30GM TOPICAL SCH (20:34)
[2022-01-14] MEDS: PIPERACILLIN SODIUM/TAZOBACTAM 4.5 GM in DEXTROSE 5% IN WATER 50 ML IV SCH ×5 (00:22→23:57)
[2022-01-14] MEDS: hydrOXYzine 25 MG TABLET PO PRN ×2 (01:07→19:19)
[2022-01-14] MEDS: 0.9 % SODIUM CHLORIDE 10 ML SYRINGE IV SCH ×4 (05:48→21:58)
[2022-01-14 06:47] LABS: Basophils # (Auto) 0.04 K/mcL (0.00-0.30); Basophils % (Auto) 0.2 % (0.0-2.0); Eosinophils # (Auto) 0.13 K/mcL (0.00-0.70); Eosinophils % (Auto) 0.6 % (0.0-7.0); Hematocrit 28.4 % (34.1-44.9); Hemoglobin 8.4 g/dL (11.2-15.7); Lymphocytes # (Auto) 0.96 K/mcL (1.50-4.80); Lymphocytes % (Auto) 4.2 % (15.5-49.0); Mean Cell Volume 90.2 fL (80.0-100.0); Mean Corpuscular HGB Conc 29.6 g/dL (31.0-36.0); Mean Platelet Volume 10.1 fL (7.4-10.4); Monocytes # (Auto) 2.48 K/mcL (0.10-0.90); Monocytes % (Auto) 10.7 % (1.0-12.0); Neutrophils % (Auto) 84.3 % (38.0-78.0); Platelet Count 485 K/mcL (140-440); RBC 3.15 M/mcL (3.59-5.38); Red Cell Distribution Width 18.8 % (11.5-14.5); WBC 23.1 K/mcL (4.5-11.0)
[2022-01-14 07:12] LABS: ALT/SGPT 13 U/L (<40); AST/SGOT 25 U/L (<32); Albumin 2.7 gm/dL (3.2-5.2); Albumin/Globulin Ratio 0.8 (1.0-2.3); Alkaline Phosphatase 187 U/L (39-117); Bilirubin,Total 0.2 mg/dL (0.1-1.0); Blood Urea Nitrogen 21 mg/dL (8-23); Calcium 8.6 mg/dL (8.6-10.4); Carbon Dioxide 25 mmol/L (22-30); Chloride 103 mmol/L (96-108); Globulin 3.4 gm/dL (2.2-3.7); Glomerular Filtration Rate 83; Glucose 106 mg/dL (70-105)
[2022-01-14] MEDS: PANTOPRAZOLE 40 MG VIAL IV SCH ×2 (07:22→17:45)
[2022-01-14] MEDS: HYDROCORTISONE CRM 1% TUBE 30GM TOPICAL SCH ×2 (09:08→21:00)
[2022-01-14] MEDS: ENOXAPARIN 40 MG/0.4 ML SYRINGE SQ SCH (09:08)
[2022-01-14] MEDS: IRON POLYSACCHARIDE COMPLEX 150 MG CAPSULE PO SCH ×2 (09:08→09:51)
[2022-01-14] MEDS: MEGESTROL ACETATE 400 MG/10 ML UDC PO SCH ×2 (09:08→09:51)
[2022-01-14] MEDS: FLUoxetine HCL 20 MG CAPSULE PO SCH (09:09)
[2022-01-14] MEDS: VITAMIN D3 25 MCG TABLET PO SCH ×2 (09:09→09:52)
[2022-01-14] MEDS: ZINC SULFATE 50 MG CAPSULE PO SCH ×2 (09:09→09:52)
[2022-01-14] MEDS: DIAZEPAM 2 MG TABLET PO PRN (09:34)
[2022-01-14] MEDS: methylPREDNISolone SOD SUCC 125 MG/2 ML VIAL IV SCH ×3 (09:34→21:58)
[2022-01-14] MEDS: ACETYLCYSTEINE 800 MG/4 ML VIAL NEB SCH ×4 (10:07→22:25)
[2022-01-14] MEDS: IPRATROPIUM/ALBUTEROL 3 ML AMPUL.NEB NEB PRN ×3 (10:07→22:25)
[2022-01-14] MEDS ORDERED: TPN PER PHARMACY IV SCH (12:52)
[2022-01-14] MEDS ORDERED: 0.9 % SODIUM CHLORIDE 10 ML SYRINGE IV PRN (12:52)
[2022-01-14] MEDS: METHOCARBAMOL 500 MG TABLET PO PRN (13:01)
[2022-01-14] MEDS ORDERED: ACETAMINOPHEN 650 MG/65 ML BAG IV PRN (13:08)
[2022-01-14] MEDS ORDERED: CALCIUM GLUCONATE 5 MEQ, MAGNESIUM SULFATE 8.12 MEQ, SODIUM CHLORIDE 40 MEQ, POTASSIUM ... IV SCH (14:00)
[2022-01-14 14:27] LABS: Phosphorous 2.7 mg/dL (2.5-4.5)
--- NOTE | 2022-01-14 14:49 | XRay Report ---
CLINICAL INFORMATION: PICC line placement. Follow-up infiltrates COMPARISON: Recent or 2021. TECHNIQUE: Portable FINDINGS: The heart size, mediastinum and pulmonary vessels are unremarkable. Right PICC line tip overlies the right atrium. Large infiltrate diffusely throughout the right lung and smaller patchy infiltrates in the left mid lower lung have progressed since yesterday. Small bilateral pleural effusions noted. IMPRESSION: Diffuse right lung and smaller patchy left mid and lower lung infiltrate progressing since yesterday. Consider infection or aspiration Right PICC line tip overlies the right atrium. The nurses were instructed to withdraw the line 3 cm Interpreted and Authenticated by: Sergei Trejo 01/14/22
[2022-01-14] MEDS: FAT EMULSION 20% 250 ML IV SCH (15:27)
--- NOTE | 2022-01-14 16:28 | Internal Med Progress Note ---
SUBJECTIVE Subjective Patient information: Note initiated : 01/14/22 at 4:23 pm Service Date, if different from initiated Date: [] Patient: Bianka Peterson a 76 y/o F admitted on 01/05/22 for Shortness of breath. Chief Complaint: [] Principal diagnosis: shortness of breath Interval history: Ms. Peterson is a 76 year old female with a history of chronic kidney disease stage III, concern for possible interstitial lung disease, recent right hip periprosthetic fracture status post ORIF in November,who has been in a [facility] nursing facility following surgery for rehab. Present presented to the emergency department for shortness of breath that started the week prior to admission. While at the SNF, the patient was started on Lasix for bilateral lower extremity edema. The patient also recently had a CT chest without contrast that showed right diffuse groundglass alveolar infiltrates involving the right upper, right middle and right lower lobe. There was a small left upper lobe infiltrate. The patient was recently seen in the emergency department for epistaxis that resolved after cauterization in the emergency department. In the emergency department on the day of hospital admission, the patient required 6 L/min oxygen supplementation. The patient had leukocytosis however was afebrile and did not have a cough. Hemoglobin is lower than 2 days prior to admission at 7.6 down from 8.9. NT pro BNP was elevated at 1512. EKG did not show any acute ischemic changes, troponin was normal. The patient does have bilateral lower extremity, right greater than left and received a dose of IV Lasix in the emergency department. Hospital medicine was consulted to admit the patient for acute hypoxic respiratory failure. I discussed the plan of admission with the patient and family members at the bedside, all questions answered to the best my ability. We discussed CODE STATUS in detail, the patient will discuss this with her family prior to making a decision. 01/06 Much better today, mycoplasma IgM positive. CTA chest was negative for PE, showed predominantly right sided diffuse infiltrates. PANTHER and Respiratory panel negative. MRSA nasal PCR negative. Continue levofloxacin IV today. Continues to require about 6 L/min oxygen supplementation. Started dysphagia diet, awaiting speech evaluating. 01/07 Does not feel as good today as yesterday, chest xray ordered. Started on stress does hydrocortisone as the patient was receiving prednisone 20 mg daily prior to admission for an unknown duration. Speech continued dysphagia diet, mildly thick liquids. Continue Levofloxacin IV. TTE pending. 01/08 Patient has chronic hip pain and does not like the [place], will try tramadol. Oxygen requirement fluctuating between 3 and 8 L. N.p.o. until seen by speech therapy. Occasional cough and shortness of breath Complained of upset stomach and some nausea but no vomiting. Leukocytosis likely from high-dose steroids yesterday. 01/09 Patient is on 5 L nasal cannula sats low 90s. Shortness of breath overall improved. She has a mild occasional dry cough. Seems anxious. Poor appetite. 01/10 Patient is requiring 4 to 8 L of nasal cannula. Patient seen by pulmonology Dr. Mtz last night, no change in treatment plan. Reported CT scan showed right hemithorax with significant bronchiectasis changes as suspected in chronic reflux aspiration. Patient seems to get anxious quite easily. She has poor appetite and not eating very well. Seems to have failure to thrive. She does report that she has noticed that when she walks her dog she becomes extremely exhausted and worn out afterwards. And she says she has been declining in this regard for the past year. 01/11 Patient anxious still complains of nausea on awakening trial and sitting up with nurses. On 4 to 6 L nasal cannula. Discussed CODE STATUS with the patient and she decided to do on a DO NOT RESUSCITATE. Sore throat better with the supper call lozenges. 01/12 Oxygen requirement still fluctuating. Patient ate more of her diet today. Seems to be a little bit more energetic. 01/13 Discussed the patient with [facility] for transfer, currently no beds available. Pulmonology on-call at [facility] feels that the patient's presentation is most likely due to aspiration acute lung injury which has now progressed to ARDS. There is a potential role for penicillins according to pulmonology, started a course of Zosyn. Pulmonology said that a bronchoscopy would be low yield in this patient's workup. WBC has increased today, possibly secondary to recent systemic steroids. We will keep the patient's head at a 30 to 45 degree upright angle to decrease the risk of aspiration. Video swallow study planned for tomorrow. Added Valium as needed for anxiety. 01/14 Increasing oxygen requirement, transitioned to FNC. CT chest yesterday showed interval progression of mostly right sided infiltrates. Discussed the conversation with pulmonology at [facility], the patient declined transfer as it was unlikely pulmonology would perform a bronchoscopy for further workup. Discussed nutritional status, the patient is ok with starting TPN. PICC line ordered. Started systemic steroids with solumedrol. Cancelled swallow study to due risk of aspiration. Physical exam Head: Atraumatic, normal inspection. Eyes: normal appearance, no scleral icterus. Neck: full ROM Respiratory: 10 L/min oxygen supplementation, respiratory rate in the low 30s with accessory muscle use. Cardiovascular: Regular tachycardia, S1, S2. GI/Abdominal: soft, nontender, no guarding. Extremities: full range of motion, nontender. Neurological: CN II-XII intact, intact motor, intact sensation. Psychiatric: normal mood. Skin: warm, normal color Constitutional Vitals: Vital Signs Temp Pulse Resp BP Pulse Ox 98.6 F 92 H 33 H 170/101 96 01/14/22 12:01 01/14/22 10:09 01/14/22 14:11 01/14/22 14:01 01/14/22 14:11 Period Temp Pulse Resp BP Sys/Ortiz Pulse Ox Last 24 Hr 97.6 F-98.6 F 88-99 19-34 131-172/85-116 88-100 Intake and Output 01/14/22 01/14/22 01/14/22 05:59 13:59 21:59 Intake Total 50 100 Output Total 325 350 Balance -275 -250 Weight 57.606 kg Patient Weight 01/15/22 05:59 Weight 57.606 kg Intake & Output: Intake & Output 01/14/22 01/14/22 01/14/22 05:59 13:59 21:59 Intake Total 50 100 Output Total 325 350 Balance -275 -250 Weight 57.606 kg Intake: IV 50 100 Zosyn 4.5 gm In Dextrose 5% in 50 100 Water 50 ml @ 100 mls/hr IV Q6H FELIPE Rx#:[id number] Oral 0 Output: Void Amount 325 350 Other: Urine Appearance Clear Clear Urine Color Dark Aretha Bright Yellow Urine Odor Normal # Voids 1 OBJ DATA Labs CBC & Chem 7: 01/14/22 05:14 01/14/22 05:14 Labs: Abnormal Lab Results 01/14/22 01/14/22 01/13/22 05:14 05:14 05:20 WBC 23.1 H RBC 3.15 L Hgb 8.4 L Hct 28.4 L MCHC 29.6 L RDW 18.8 H Plt Count 485 H Neut % (Auto) 84.3 H Lymph % (Auto) 4.2 L Lymph # (Auto) 0.96 L [place] # (Auto) 2.48 H Absolute Neutrophils 19.49 H ESR Glucose 106 H Alkaline Phosphatase 187 H C-Reactive Protein 7.70 H Albumin 2.7 L Albumin/Globulin Ratio 0.8 L 01/13/22 05:20 WBC 32.3 H* RBC 3.25 L Hgb 8.6 L Hct 28.6 L MCHC 30.1 L RDW 18.3 H Plt Count 522 H Neut % (Auto) 88.7 H Lymph % (Auto) 3.5 L Lymph # (Auto) 1.12 L [place] # (Auto) 2.45 H Absolute Neutrophils 28.63 H ESR 74 H Glucose Alkaline Phosphatase C-Reactive Protein Albumin Albumin/Globulin Ratio Meds: Medications Hydrocodone Bitart/Acetaminophen (Hydrocodone/Apap 5/325mg Tablet) 1 tab PO Q4HP PRN; Protocol PRN Reason: Per Pain Protocol Last Admin: 01/08/22 07:14 Dose: 1 tab Documented by: Acetylcysteine (Acetylcysteine 800 Mg/4 Ml Vial) 600 mg NEB QID FELIPE Last Admin: 01/14/22 13:11 Dose: Not Given Documented by: Albuterol/Ipratropium (Ipratropium/Albuterol 3 Ml Ampul.Neb) 3 ml NEB Q6HP PRN PRN Reason: Shortness Of Breath Last Admin: 01/14/22 10:07 Dose: 3 ml Documented by: Benzocaine (Benzocaine 1 [place] Bottle) 1 spray TOPICAL Q4HP PRN PRN Reason: Sore Throat Last Admin: 01/10/22 16:58 Dose: 1 spray Documented by: Diazepam (Diazepam 2 Mg Tablet) 5 mg PO BIDP PRN PRN Reason: anxiety Last Admin: 01/14/22 09:34 Dose: 5 mg Documented by: Diphenhydramine HCl (Diphenhydramine 50 Mg/Ml Vial) 25 mg IV Q6HP PRN PRN Reason: Allergic Symptoms Enoxaparin Sodium (Enoxaparin 40 Mg/0.4 Ml Syringe) 40 mg SQ DAILY [facility] Last Admin: 01/14/22 09:08 Dose: 40 mg Documented by: Fluoxetine HCl (Fluoxetine Hcl 20 Mg Capsule) 20 mg PO QDAY [facility] Last Admin: 01/14/22 09:09 Dose: 20 mg Documented by: Heparin Sodium (Porcine) (Heparin Flush 10 Units/Ml 5 Ml Syringe) 2 ml IV Q12 [facility] Last Admin: 01/14/22 15:46 Dose: 2 ml Documented by: Heparin Sodium (Porcine) (Heparin Flush 10 Units/Ml 5 Ml Syringe) 2 ml IV Q12 [facility] Hydrocortisone (Hydrocortisone Crm 1% Tube 30gm) 1 dose TOPICAL BID [facility] Last Admin: 01/14/22 09:08 Dose: 1 dose Documented by: Hydroxyzine HCl (Hydroxyzine 25 Mg Tablet) 50 mg PO TIDP PRN PRN Reason: anxiety Last Admin: 01/14/22 01:07 Dose: 50 mg Documented by: Piperacillin Sod/Tazobactam (Sod 4.5 gm/ Dextrose) 50 mls @ 100 mls/hr IV Q6H [facility]; Protocol Stop: 01/18/22 17:59 Last Infusion: 01/14/22 13:02 Dose: Infused Documented by: Acetaminophen (Ofirmev) 650 mg in 65 mls @ 130 mls/hr IV Q6HP PRN; Protocol PRN Reason: PAIN/FEVER > 101 Fat Emulsion Intravenous (Intralipid 20%) 250 mls @ 25 mls/hr IV TuThSa@1600 [facility] Last Admin: 01/14/22 15:27 Dose: 25 mls/hr Documented by: Calcium Gluconate 5 meq/Magnesium Sulfate 8.12 meq/Sodium Chloride 40 meq/Potassium Chloride 40 meq/Sodium Phosphate 15 mmol/Amino Acids 1,047.7526 mls @ 30 mls/hr IV DAILY@1400 [facility] Last Admin: 01/14/22 15:27 Dose: 30 mls/hr Documented by: Lactulose (Lactulose 20 Gm/30 Ml Oral.[place]) 10 gm PO DAILYP PRN PRN Reason: Constipation Megestrol Acetate (Megestrol Acetate 400 Mg/10 Ml Udc) 400 mg PO DAILY [facility] Last Admin: 01/14/22 09:51 Dose: Not Given Documented by: Melatonin (Melatonin 3 Mg Tablet) 6 mg PO HSP PRN PRN Reason: insomnia Methocarbamol (Methocarbamol 500 Mg Tablet) 500 mg PO Q8HP PRN PRN Reason: Muscle Spasm Last Admin: 01/14/22 13:01 Dose: 500 mg Documented by: Methylprednisolone Sodium Succinate (Methylprednisolone Sod Succ 125 Mg/2 Ml Vial) 62.5 mg IV Q8 [facility] Last Admin: 01/14/22 15:27 Dose: 62.5 mg Documented by: Metoclopramide HCl (Metoclopramide 10 Mg/2 Ml Vial) 10 mg IV Q6HP PRN PRN Reason: Nausea And Vomiting Ondansetron HCl (Ondansetron 4 Mg/2 Ml Vial) 4 mg IV Q4HP PRN; Protocol PRN Reason: Nausea And Vomiting Last Admin: 01/10/22 16:57 Dose: 4 mg Documented by: Pantoprazole Sodium (Pantoprazole 40 Mg Vial) 40 mg IV BIDAC FELIPE Last Admin: 01/14/22 07:22 Dose: 40 mg Documented by: Polyethylene Glycol (Polyethylene Glycol 3350 17 Gm Packet) 17 gm PO QDAY PRN PRN Reason: c Promethazine HCl (Promethazine 25 Mg/Ml Vial) 12.5 mg IV Q6HP PRN PRN Reason: Nausea And Vomiting Last Admin: 01/10/22 12:49 Dose: 12.5 mg Documented by: Senna (Sennosides 1 Tablet) 2 tab PO HSP PRN PRN Reason: Constipation Sodium Chloride (0.9 % Sodium Chloride 10 Ml Syringe) 10 ml IV Q8 [facility] Last Admin: 01/14/22 15:27 Dose: 10 ml Documented by: Sodium Chloride (0.9 % Sodium Chloride 10 Ml Syringe) 10 ml IV UD PRN PRN Reason: FLUSH Sodium Chloride (0.9 % Sodium Chloride 10 Ml Syringe) 10 ml IV Q12 [facility]EL[facility] Sodium Chloride (0.9 % Sodium Chloride 10 Ml Syringe) 10 ml IV UD PRN PRN Reason: FLUSH Sodium Chloride (0.9 % Sodium Chloride 10 Ml Syringe) 10 ml IV Q12 [facility]EL[facility] Temazepam (Temazepam 15 Mg Capsule) 15 mg PO HSP PRN PRN Reason: Insomnia Last Admin: 01/11/22 21:28 Dose: 15 mg Documented by: Throat Lozenges (Benzocaine/Menthol 1 Lozenge) 1 lozenge PO PRN PRN PRN Reason: Sore Throat Last Admin: 01/11/22 05:27 Dose: 1 lozenge Documented by: Tramadol HCl (Tramadol 50 Mg Tablet) 50 mg PO Q4-6HP PRN; Protocol PRN Reason: Pain Last Admin: 01/13/22 20:30 Dose: 50 mg Documented by: A/P Narrative A/P Narrative: A: #Acute hypoxic respiratory failure: 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 & underlying Bronchiectasis -Probable acute lung injury that has progressed to ARDS -echo unimpressive -4-6L NC #Possible CAP(atypical vs viral) & ?Aspiration(ST eval no obvious signs): -Positive Mycoplasma IgM but PCR negative, RVP/covid neg -CXR imporved on left, chronic damage on right #h/o possible Interstitial Lung Disease: #Persistent leukocytosis: periph smear unremarkable, no bandemia, afebrile #Oropharyngeal Dysphagia,mild: #Recent Right Hip Fx s/p ORIF (12/05/2021) #Anemia,acute on chronic s/p hip surgery + KARLOS: stable #Generalized weakness: #Anxiety #Depression: #Chr hip pain: prn tramadol #Cachexia: #Generalized weakness/deconditioning: Not working with physical therapy very well #Guarded prognosis Plan -Continue Zosyn IV every 6 hours. -Start Solumedrol IV TID -Continue Protonix IV twice daily. -Valium p.o. as needed for anxiety. -Oxygen supplementation -TPN per pharmacy. -PICC line. -Keep head of bed elevated 30 to 45 degrees. -Monitor volume status with TPN. -Holding home lasix for now, poor oral intake. -PT and OT consult -dysphagia diet per ST -Speech following. -Dr. Mtz consulted > no change in treatment plan. likely underlying severe chronic lung damage on right -f/u with Pulmonary outpatient -ppx: Lovenox -CODE STATUS: DNR/DNI -Disposition: TBD Code status: DNR Time Spent With Patient Time: Total time spent is greater than 50% in coordination of care (as documented) at patient's floor/unit and/or counseling patient:
[2022-01-14] MEDS: 0.9 % SODIUM CHLORIDE 10 ML SYRINGE IV PRN ×2 (18:30→23:58)
[2022-01-14] MEDS: MELATONIN 3 MG TABLET PO PRN (20:29)
[2022-01-14] MEDS: TEMAZEPAM 15 MG CAPSULE PO PRN (20:29)
[2022-01-14] MEDS: diphenhydrAMINE 50 MG/ML VIAL IV PRN (20:29)
[2022-01-14] MEDS ORDERED: 0.9 % SODIUM CHLORIDE 10 ML SYRINGE IV SCH (21:00)
[2022-01-14] MEDS: INSULIN LISPRO 1 UNIT/0.01 ML UNIT SQ SCH (23:57)
[2022-01-15] MEDS ORDERED: INSULIN LISPRO 1 UNIT/0.01 ML UNIT SQ ONE ×2 (00:03→05:49)
[2022-01-15] MEDS: 0.9 % SODIUM CHLORIDE 10 ML SYRINGE IV PRN ×2 (00:40→05:44)
[2022-01-15] MEDS: DIAZEPAM 2 MG TABLET PO PRN (00:59)
[2022-01-15] MEDS: 0.9 % SODIUM CHLORIDE 10 ML SYRINGE IV SCH ×6 (05:43→20:32)
[2022-01-15] MEDS: INSULIN LISPRO 1 UNIT/0.01 ML UNIT SQ SCH ×4 (05:43→23:56)
[2022-01-15] MEDS: PIPERACILLIN SODIUM/TAZOBACTAM 4.5 GM in DEXTROSE 5% IN WATER 50 ML IV SCH ×4 (05:44→23:54)
[2022-01-15] MEDS: methylPREDNISolone SOD SUCC 125 MG/2 ML VIAL IV SCH ×3 (05:47→22:20)
[2022-01-15 06:24] LABS: Basophils # (Auto) 0.02 K/mcL (0.00-0.30); Basophils % (Auto) 0.1 % (0.0-2.0); Eosinophils # (Auto) 0 K/mcL (0.00-0.70); Eosinophils % (Auto) 0 % (0.0-7.0); Hematocrit 29.8 % (34.1-44.9); Hemoglobin 8.9 g/dL (11.2-15.7); Lymphocytes # (Auto) 0.49 K/mcL (1.50-4.80); Lymphocytes % (Auto) 3.1 % (15.5-49.0); Mean Cell Volume 88.7 fL (80.0-100.0); Mean Corpuscular HGB Conc 29.9 g/dL (31.0-36.0); Mean Platelet Volume 10.4 fL (7.4-10.4); Monocytes # (Auto) 0.79 K/mcL (0.10-0.90); Neutrophils % (Auto) 91.8 % (38.0-78.0); Platelet Count 482 K/mcL (140-440); RBC 3.36 M/mcL (3.59-5.38); Red Cell Distribution Width 18.5 % (11.5-14.5); WBC 15.7 K/mcL (4.5-11.0)
[2022-01-15 06:51] LABS: ALT/SGPT 12 U/L (<40); AST/SGOT 15 U/L (<32); Albumin/Globulin Ratio 0.8 (1.0-2.3); Alkaline Phosphatase 187 U/L (39-117); Bilirubin,Direct < 0.2 mg/dL (0-0.3); Bilirubin,Total 0.2 mg/dL (0.1-1.0); Blood Urea Nitrogen 19 mg/dL (8-23); Calcium 9.2 mg/dL (8.6-10.4); Carbon Dioxide 26 mmol/L (22-30); Chloride 99 mmol/L (96-108); Globulin 3.7 gm/dL (2.2-3.7); Glomerular Filtration Rate 83; Glucose 255 mg/dL (70-105); Lactate Dehydrogenase 431 U/L (135-225); Phosphorous 2.4 mg/dL (2.5-4.5); Triglycerides 52 mg/dL (<150); Uric Acid 1.9 mg/dL (2.5-8.0)
[2022-01-15] MEDS: PANTOPRAZOLE 40 MG VIAL IV SCH ×2 (07:27→16:45)
[2022-01-15] MEDS ORDERED: CALCIUM GLUCONATE 5 MEQ, MAGNESIUM SULFATE 8.12 MEQ, SODIUM CHLORIDE 40 MEQ, POTASSIUM ... IV SCH (08:18)
[2022-01-15] MEDS: ACETYLCYSTEINE 800 MG/4 ML VIAL NEB SCH ×4 (08:25→21:39)
[2022-01-15] MEDS: IPRATROPIUM/ALBUTEROL 3 ML AMPUL.NEB NEB PRN ×4 (08:25→21:39)
[2022-01-15] MEDS: MEGESTROL ACETATE 400 MG/10 ML UDC PO SCH (08:26)
[2022-01-15] MEDS: traMADol 50 MG TABLET PO PRN (08:29)
[2022-01-15] MEDS: METHOCARBAMOL 500 MG TABLET PO PRN (08:30)
[2022-01-15] MEDS: FLUoxetine HCL 20 MG CAPSULE PO SCH (08:30)
[2022-01-15] MEDS: HYDROCORTISONE CRM 1% TUBE 30GM TOPICAL SCH ×2 (09:00→20:41)
[2022-01-15] MEDS: ENOXAPARIN 40 MG/0.4 ML SYRINGE SQ SCH (09:01)
[2022-01-15] MEDS ORDERED: DEXTROSE 50% 50 ML VIAL IV PRN (10:45)
[2022-01-15] MEDS ORDERED: DEXTROSE 31 GM ORAL.SUSP PO PRN (10:45)
[2022-01-15] MEDS ORDERED: INSULIN LISPRO 1 UNIT/0.01 ML UNIT SQ SCH ×2 (11:00→11:30)
[2022-01-15] MEDS: hydrOXYzine 25 MG TABLET PO PRN ×2 (13:32→20:30)
[2022-01-15 14:06] LABS: Myeloperoxidase ABS <1.0 AI (<1.0); Proteinase-3-AB <1.0 AI (<1.0)
[2022-01-15] MEDS: CALCIUM GLUCONATE 10 MEQ, MAGNESIUM SULFATE 16.24 MEQ, SODIUM CHLORIDE 80 MEQ, POTASSIU... IV SCH (14:15)
--- NOTE | 2022-01-15 15:11 | Internal Med Progress Note ---
SUBJECTIVE Subjective Patient information: Note initiated : 01/15/22 at 3:06 pm Service Date, if different from initiated Date: [] Patient: Bianka Peterson a 76 y/o F admitted on 01/05/22 for Shortness of breath. Chief Complaint: [] Principal diagnosis: shortness of breath Interval history: Ms. Peterson is a 76 year old female with a history of chronic kidney disease stage III, concern for possible interstitial lung disease, recent right hip periprosthetic fracture status post ORIF in November,who has been in a [facility] nursing facility following surgery for rehab. Present presented to the emergency department for shortness of breath that started the week prior to admission. While at the SNF, the patient was started on Lasix for bilateral lower extremity edema. The patient also recently had a CT chest without contrast that showed right diffuse groundglass alveolar infiltrates involving the right upper, right middle and right lower lobe. There was a small left upper lobe infiltrate. The patient was recently seen in the emergency department for epistaxis that resolved after cauterization in the emergency department. In the emergency department on the day of hospital admission, the patient required 6 L/min oxygen supplementation. The patient had leukocytosis however was afebrile and did not have a cough. Hemoglobin is lower than 2 days prior to admission at 7.6 down from 8.9. NT pro BNP was elevated at 1512. EKG did not show any acute ischemic changes, troponin was normal. The patient does have bilateral lower extremity, right greater than left and received a dose of IV Lasix in the emergency department. Hospital medicine was consulted to admit the patient for acute hypoxic respiratory failure. I discussed the plan of admission with the patient and family members at the bedside, all questions answered to the best my ability. We discussed CODE STATUS in detail, the patient will discuss this with her family prior to making a decision. 01/06 Much better today, mycoplasma IgM positive. CTA chest was negative for PE, showed predominantly right sided diffuse infiltrates. PANTHER and Respiratory panel negative. MRSA nasal PCR negative. Continue levofloxacin IV today. Continues to require about 6 L/min oxygen supplementation. Started dysphagia diet, awaiting speech evaluating. 01/07 Does not feel as good today as yesterday, chest xray ordered. Started on stress does hydrocortisone as the patient was receiving prednisone 20 mg daily prior to admission for an unknown duration. Speech continued dysphagia diet, mildly thick liquids. Continue Levofloxacin IV. TTE pending. 01/08 Patient has chronic hip pain and does not like the [place], will try tramadol. Oxygen requirement fluctuating between 3 and 8 L. N.p.o. until seen by speech therapy. Occasional cough and shortness of breath Complained of upset stomach and some nausea but no vomiting. Leukocytosis likely from high-dose steroids yesterday. 01/09 Patient is on 5 L nasal cannula sats low 90s. Shortness of breath overall improved. She has a mild occasional dry cough. Seems anxious. Poor appetite. 01/10 Patient is requiring 4 to 8 L of nasal cannula. Patient seen by pulmonology Dr. Mtz last night, no change in treatment plan. Reported CT scan showed right hemithorax with significant bronchiectasis changes as suspected in chronic reflux aspiration. Patient seems to get anxious quite easily. She has poor appetite and not eating very well. Seems to have failure to thrive. She does report that she has noticed that when she walks her dog she becomes extremely exhausted and worn out afterwards. And she says she has been declining in this regard for the past year. 01/11 Patient anxious still complains of nausea on awakening trial and sitting up with nurses. On 4 to 6 L nasal cannula. Discussed CODE STATUS with the patient and she decided to do on a DO NOT RESUSCITATE. Sore throat better with the supper call lozenges. 01/12 Oxygen requirement still fluctuating. Patient ate more of her diet today. Seems to be a little bit more energetic. 01/13 Discussed the patient with [facility] for transfer, currently no beds available. Pulmonology on-call at [facility] feels that the patient's presentation is most likely due to aspiration acute lung injury which has now progressed to ARDS. There is a potential role for penicillins according to pulmonology, started a course of Zosyn. Pulmonology said that a bronchoscopy would be low yield in this patient's workup. WBC has increased today, possibly secondary to recent systemic steroids. We will keep the patient's head at a 30 to 45 degree upright angle to decrease the risk of aspiration. Video swallow study planned for tomorrow. Added Valium as needed for anxiety. 01/14 Increasing oxygen requirement, transitioned to FNC. CT chest yesterday showed interval progression of mostly right sided infiltrates. Discussed the conversation with pulmonology at [facility], the patient declined transfer as it was unlikely pulmonology would perform a bronchoscopy for further workup. Discussed nutritional status, the patient is ok with starting TPN. PICC line ordered. Started systemic steroids with solumedrol. Cancelled swallow study to due risk of aspiration. 01/15 Continues on HHFNC with high FiO2. Oxygen requirement seems to increase during the daytime, possibly secondary to anxiety affecting respirations. Increased correction Humalog SSI to medium for hyperglycemia due toTPN and also systemic steroids. Physical exam Head: Atraumatic, normal inspection. Eyes: normal appearance, no scleral icterus. Neck: full ROM Respiratory: HHFNC, respiratory rate in the low 30s with accessory muscle use. Cardiovascular: Regular tachycardia, S1, S2. GI/Abdominal: soft, nontender, no guarding. Extremities: full range of motion, nontender. Neurological: CN II-XII intact, intact motor, intact sensation. Psychiatric: normal mood. Skin: warm, normal color Constitutional Vitals: Vital Signs Temp Pulse Resp BP Pulse Ox 97.1 F 98 H 33 H 153/84 96 01/15/22 12:01 01/15/22 12:54 01/15/22 14:04 01/15/22 14:01 01/15/22 14:04 Period Temp Pulse Resp BP Sys/Ortiz Pulse Ox Last 24 Hr 97.1 F-98.3 F 98-99 19-42 133-173/77-104 90-100 Intake and Output 01/15/22 01/15/22 01/15/22 05:59 13:59 21:59 Intake Total 300 120 Output Total 225 200 Balance 75 -80 Intake & Output: Intake & Output 01/15/22 01/15/22 01/15/22 05:59 13:59 21:59 Intake Total 300 120 Output Total 225 200 Balance 75 -80 Intake: IV 300 100 Intralipid 20% 250 ml @ 25 mls/ 250 hr IV TuThSa@1600 [facility] Rx#: [id number] Zosyn 4.5 gm In Dextrose 5% in 50 100 Water 50 ml @ 100 mls/hr IV Q6H [facility] Rx#:[id number] Oral 0 20 Output: Void Amount 225 200 Other: Meal Ice Cream Percent of Meal Consumed 100% Urine Appearance Clear Urine Color Bright Yellow Urine Odor Normal OBJ DATA Labs CBC & Chem 7: 01/15/22 05:19 01/15/22 05:19 Labs: Abnormal Lab Results 01/15/22 01/15/22 01/14/22 05:19 05:19 05:14 WBC 15.7 H RBC 3.36 L Hgb 8.9 L Hct 29.8 L MCHC 29.9 L RDW 18.5 H Plt Count 482 H Neut % (Auto) 91.8 H Lymph % (Auto) 3.1 L Lymph # (Auto) 0.49 L [place] # (Auto) Absolute Neutrophils 14.40 H ESR Glucose 255 H 106 H Uric Acid 1.9 L Phosphorus 2.4 L GGT 188 H Alkaline Phosphatase 187 H 187 H Lactate Dehydrogenase 431 H C-Reactive Protein Albumin 3.0 L 2.7 L Albumin/Globulin Ratio 0.8 L 0.8 L 01/14/22 01/13/22 01/13/22 05:14 05:20 05:20 WBC 23.1 H 32.3 H* RBC 3.15 L 3.25 L Hgb 8.4 L 8.6 L Hct 28.4 L 28.6 L MCHC 29.6 L 30.1 L RDW 18.8 H 18.3 H Plt Count 485 H 522 H Neut % (Auto) 84.3 H 88.7 H Lymph % (Auto) 4.2 L 3.5 L Lymph # (Auto) 0.96 L 1.12 L [place] # (Auto) 2.48 H 2.45 H Absolute Neutrophils 19.49 H 28.63 H ESR 74 H Glucose Uric Acid Phosphorus GGT Alkaline Phosphatase Lactate Dehydrogenase C-Reactive Protein 7.70 H Albumin Albumin/Globulin Ratio Meds: Medications Hydrocodone Bitart/Acetaminophen (Hydrocodone/Apap 5/325mg Tablet) 1 tab PO Q4HP PRN; Protocol PRN Reason: Per Pain Protocol Last Admin: 01/08/22 07:14 Dose: 1 tab Documented by: Acetylcysteine (Acetylcysteine 800 Mg/4 Ml Vial) 600 mg NEB QID [facility]ELIPE Last Admin: 01/15/22 12:53 Dose: 600 mg Documented by: Albuterol/Ipratropium (Ipratropium/Albuterol 3 Ml Ampul.Neb) 3 ml NEB Q6HP PRN PRN Reason: Shortness Of Breath Last Admin: 01/15/22 12:53 Dose: 3 ml Documented by: Benzocaine (Benzocaine 1 [place] Bottle) 1 spray TOPICAL Q4HP PRN PRN Reason: Sore Throat Last Admin: 01/10/22 16:58 Dose: 1 spray Documented by: Dextrose (Dextrose 50% 50 Ml Vial) 0 ml IV UD PRN PRN Reason: Per Sliding Scale Diagnostic Test (Pha) (Accu-Chek 1 Each Strip) 1 each FS Q6 [facility]; Protocol Last Admin: 01/15/22 11:51 Dose: 1 each Documented by: Diphenhydramine HCl (Diphenhydramine 50 Mg/Ml Vial) 25 mg IV Q6HP PRN PRN Reason: Allergic Symptoms Last Admin: 01/14/22 20:29 Dose: 25 mg Documented by: Enoxaparin Sodium (Enoxaparin 40 Mg/0.4 Ml Syringe) 40 mg SQ DAILY [facility] Last Admin: 01/15/22 09:01 Dose: 40 mg Documented by: Fluoxetine HCl (Fluoxetine Hcl 20 Mg Capsule) 20 mg PO QDAY [facility] Last Admin: 01/15/22 08:30 Dose: 20 mg Documented by: Glucose (Dextrose 31 Gm Oral.Susp) 15 gm PO PRN PRN PRN Reason: Hypoglycemia Heparin Sodium (Porcine) (Heparin Flush 10 Units/Ml 5 Ml Syringe) 2 ml IV Q12 [facility] Last Admin: 01/15/22 09:01 Dose: 2 ml Documented by: Hydrocortisone (Hydrocortisone Crm 1% Tube 30gm) 1 dose TOPICAL BID [facility] Last Admin: 01/15/22 09:00 Dose: 1 dose Documented by: Hydroxyzine HCl (Hydroxyzine 25 Mg Tablet) 50 mg PO TIDP PRN PRN Reason: anxiety Last Admin: 01/15/22 13:32 Dose: 50 mg Documented by: Piperacillin Sod/Tazobactam (Sod 4.5 gm/ Dextrose) 50 mls @ 100 mls/hr IV Q6H [facility]; Protocol Stop: 01/18/22 17:59 Last Infusion: 01/15/22 12:51 Dose: Infused Documented by: Acetaminophen (Ofirmev) 650 mg in 65 mls @ 130 mls/hr IV Q6HP PRN; Protocol PRN Reason: PAIN/FEVER > 101 Last Infusion: 01/14/22 21:02 Dose: Infused Documented by: Fat Emulsion Intravenous (Intralipid 20%) 250 mls @ 25 mls/hr IV TuThSa@1600 [facility] Last Infusion: 01/15/22 01:57 Dose: Infused Documented by: Calcium Gluconate 10 meq/Magnesium Sulfate 16.24 meq/Sodium Chloride 80 meq/Potassium Chloride 80 meq/Sodium Phosphate 40 mmol/Amino Acids 2,098.8386 mls @ 65 mls/hr IV DAILY@1400 [facility] Last Admin: 01/15/22 14:15 Dose: 65 mls/hr Documented by: Insulin Human Lispro (Insulin Lispro 1 Unit/0.01 Ml Unit) 0 unit SQ Q6H [facility]; Protocol Last Admin: 01/15/22 12:19 Dose: 8 units Documented by: Lactulose (Lactulose 20 Gm/30 Ml Oral.Alma) 10 gm PO DAILYP PRN PRN Reason: Constipation Lorazepam (Lorazepam 2 Mg/Ml Vial) 0.5 mg IV Q4HP PRN PRN Reason: ANXIETY/SEDATION Megestrol Acetate (Megestrol Acetate 400 Mg/10 Ml Udc) 400 mg PO DAILY [facility] Last Admin: 01/15/22 08:26 Dose: Not Given Documented by: Melatonin (Melatonin 3 Mg Tablet) 6 mg PO HSP PRN PRN Reason: insomnia Last Admin: 01/14/22 20:29 Dose: 6 mg Documented by: Methocarbamol (Methocarbamol 500 Mg Tablet) 500 mg PO Q8HP PRN PRN Reason: Muscle Spasm Last Admin: 01/15/22 08:30 Dose: 500 mg Documented by: Methylprednisolone Sodium Succinate (Methylprednisolone Sod Succ 125 Mg/2 Ml Vial) 62.5 mg IV Q8 [facility] Last Admin: 01/15/22 13:35 Dose: 62.5 mg Documented by: Metoclopramide HCl (Metoclopramide 10 Mg/2 Ml Vial) 10 mg IV Q6HP PRN PRN Reason: Nausea And Vomiting Ondansetron HCl (Ondansetron 4 Mg/2 Ml Vial) 4 mg IV Q4HP PRN; Protocol PRN Reason: Nausea And Vomiting Last Admin: 01/10/22 16:57 Dose: 4 mg Documented by: Pantoprazole Sodium (Pantoprazole 40 Mg Vial) 40 mg IV BIDAC [facility] Last Admin: 01/15/22 07:27 Dose: 40 mg Documented by: Polyethylene Glycol (Polyethylene Glycol 3350 17 Gm Packet) 17 gm PO QDAY PRN PRN Reason: c Promethazine HCl (Promethazine 25 Mg/Ml Vial) 12.5 mg IV Q6HP PRN PRN Reason: Nausea And Vomiting Last Admin: 01/10/22 12:49 Dose: 12.5 mg Documented by: Senna (Sennosides 1 Tablet) 2 tab PO HSP PRN PRN Reason: Constipation Sodium Chloride (0.9 % Sodium Chloride 10 Ml Syringe) 10 ml IV Q8 [facility] Last Admin: 01/15/22 14:16 Dose: 10 ml Documented by: Sodium Chloride (0.9 % Sodium Chloride 10 Ml Syringe) 10 ml IV UD PRN PRN Reason: FLUSH Last Admin: 01/15/22 05:44 Dose: 10 ml Documented by: Sodium Chloride (0.9 % Sodium Chloride 10 Ml Syringe) 10 ml IV Q12 [facility] Last Admin: 01/15/22 09:31 Dose: 10 ml Documented by: Temazepam (Temazepam 15 Mg Capsule) 15 mg PO HSP PRN PRN Reason: Insomnia Last Admin: 01/14/22 20:29 Dose: 15 mg Documented by: Throat Lozenges (Benzocaine/Menthol 1 Lozenge) 1 lozenge PO PRN PRN PRN Reason: Sore Throat Last Admin: 01/11/22 05:27 Dose: 1 lozenge Documented by: Tramadol HCl (Tramadol 50 Mg Tablet) 50 mg PO Q4-6HP PRN; Protocol PRN Reason: Pain Last Admin: 01/15/22 08:29 Dose: 50 mg Documented by: A/P Narrative A/P Narrative: A: #Acute hypoxic respiratory failure: 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 -Continue Solumedrol IV TID -Continue Protonix IV twice daily. -Ativan IV as needed. -Oxygen supplementation -TPN per pharmacy. -Correction Humalog SSI. -Keep head of bed elevated 30 to 45 degrees. -Monitor volume status with TPN. -Holding home lasix for now, poor oral intake. -PT and OT following. -dysphagia diet per ST -Speech following. -Dr. Mtz consulted > no change in treatment plan. likely underlying severe chronic lung damage on right -f/u with Pulmonary outpatient -ppx: Lovenox -CODE STATUS: DNR/DNI -Disposition: TBD Code status: DNR Time Spent With Patient Time: Total time spent is greater than 50% in coordination of care (as documented) at patient's floor/unit and/or counseling patient:
[2022-01-15] MEDS: LORazepam 2 MG/ML VIAL IV PRN (17:32)
[2022-01-15] MEDS: MELATONIN 3 MG TABLET PO PRN (20:30)
[2022-01-15] MEDS: diphenhydrAMINE 50 MG/ML VIAL IV PRN (20:30)
[2022-01-15] MEDS: TEMAZEPAM 15 MG CAPSULE PO PRN (23:40)
[2022-01-16] MEDS: 0.9 % SODIUM CHLORIDE 10 ML SYRINGE IV SCH ×5 (04:50→22:10)
[2022-01-16] MEDS: PIPERACILLIN SODIUM/TAZOBACTAM 4.5 GM in DEXTROSE 5% IN WATER 50 ML IV SCH ×4 (06:23→23:54)
[2022-01-16] MEDS: INSULIN LISPRO 1 UNIT/0.01 ML UNIT SQ SCH ×4 (06:37→23:55)
[2022-01-16 06:40] LABS: Basophils # (Auto) 0.04 K/mcL (0.00-0.30); Basophils % (Auto) 0.1 % (0.0-2.0); Eosinophils # (Auto) 0 K/mcL (0.00-0.70); Eosinophils % (Auto) 0 % (0.0-7.0); Hematocrit 31.9 % (34.1-44.9); Hemoglobin 9.8 g/dL (11.2-15.7); Lymphocytes # (Auto) 0.49 K/mcL (1.50-4.80); Lymphocytes % (Auto) 1.8 % (15.5-49.0); Mean Cell Volume 86.9 fL (80.0-100.0); Mean Corpuscular HGB Conc 30.7 g/dL (31.0-36.0); Mean Platelet Volume 10.2 fL (7.4-10.4); Monocytes # (Auto) 1.47 K/mcL (0.10-0.90); Monocytes % (Auto) 5.5 % (1.0-12.0); Neutrophils % (Auto) 92.6 % (38.0-78.0); Platelet Count 524 K/mcL (140-440); RBC 3.67 M/mcL (3.59-5.38); Red Cell Distribution Width 18.5 % (11.5-14.5); WBC 26.9 K/mcL (4.5-11.0)
[2022-01-16] MEDS: 0.9 % SODIUM CHLORIDE 10 ML SYRINGE IV PRN (06:40)
[2022-01-16] MEDS: methylPREDNISolone SOD SUCC 125 MG/2 ML VIAL IV SCH ×3 (06:41→22:06)
[2022-01-16 06:54] LABS: ALT/SGPT 14 U/L (<40); AST/SGOT 21 U/L (<32); Albumin 3.2 gm/dL (3.2-5.2); Albumin/Globulin Ratio 0.9 (1.0-2.3); Alkaline Phosphatase 186 U/L (39-117); Bilirubin,Direct < 0.2 mg/dL (0-0.3); Bilirubin,Total 0.2 mg/dL (0.1-1.0); Blood Urea Nitrogen 28 mg/dL (8-23); Calcium 9.2 mg/dL (8.6-10.4); Carbon Dioxide 25 mmol/L (22-30); Chloride 104 mmol/L (96-108); Globulin 3.6 gm/dL (2.2-3.7); Glomerular Filtration Rate 83; Glucose 271 mg/dL (70-105); Lactate Dehydrogenase 537 U/L (135-225); Phosphorous 2.5 mg/dL (2.5-4.5); Triglycerides 66 mg/dL (<150); Uric Acid 1.4 mg/dL (2.5-8.0)
[2022-01-16] MEDS: traMADol 50 MG TABLET PO PRN ×2 (07:08→13:46)
[2022-01-16] MEDS: hydrOXYzine 25 MG TABLET PO PRN ×2 (07:08→13:02)
[2022-01-16] MEDS: PANTOPRAZOLE 40 MG VIAL IV SCH ×2 (07:08→16:53)
[2022-01-16] MEDS: METHOCARBAMOL 500 MG TABLET PO PRN (07:08)
[2022-01-16] MEDS: FLUoxetine HCL 20 MG CAPSULE PO SCH (07:35)
[2022-01-16] MEDS: MEGESTROL ACETATE 400 MG/10 ML UDC PO SCH (11:40)
[2022-01-16] MEDS: ENOXAPARIN 40 MG/0.4 ML SYRINGE SQ SCH (11:44)
[2022-01-16] MEDS: HYDROCORTISONE CRM 1% TUBE 30GM TOPICAL SCH ×2 (11:45→22:10)
--- NOTE | 2022-01-16 12:36 | Internal Med Progress Note ---
SUBJECTIVE Subjective Patient information: Note initiated : 01/16/22 at 12:33 pm Service Date, if different from initiated Date: [] Patient: Bianka Peterson a 76 y/o F admitted on 01/05/22 for Shortness of breath. Chief Complaint: [] Principal diagnosis: shortness of breath Interval history: Ms. Peterson is a 76 year old female with a history of chronic kidney disease stage III, concern for possible interstitial lung disease, recent right hip periprosthetic fracture status post ORIF in November,who has been in a longterm facility following surgery for rehab. Present presented to the emergency department for shortness of breath that started the week prior to admission. While at the SNF, the patient was started on Lasix for bilateral lower extremity edema. The patient also recently had a CT chest without contrast that showed right diffuse groundglass alveolar infiltrates involving the right upper, right middle and right lower lobe. There was a small left upper lobe infiltrate. The patient was recently seen in the emergency department for epistaxis that resolved after cauterization in the emergency department. In the emergency department on the day of hospital admission, the patient required 6 L/min oxygen supplementation. The patient had leukocytosis however was afebrile and did not have a cough. Hemoglobin is lower than 2 days prior to admission at 7.6 down from 8.9. NT pro BNP was elevated at 1512. EKG did not show any acute ischemic changes, troponin was normal. The patient does have bilateral lower extremity, right greater than left and received a dose of IV Lasix in the emergency department. Hospital medicine was consulted to admit the patient for acute hypoxic respiratory failure. I discussed the plan of admission with the patient and family members at the bedside, all questions answered to the best my ability. We discussed CODE STATUS in detail, the patient will discuss this with her family prior to making a decision. 01/06 Much better today, mycoplasma IgM positive. CTA chest was negative for PE, showed predominantly right sided diffuse infiltrates. PANTHER and Respiratory panel negative. MRSA nasal PCR negative. Continue levofloxacin IV today. Continues to require about 6 L/min oxygen supplementation. Started dysphagia diet, awaiting speech evaluating. 01/07 Does not feel as good today as yesterday, chest xray ordered. Started on stress does hydrocortisone as the patient was receiving prednisone 20 mg daily prior to admission for an unknown duration. Speech continued dysphagia diet, mildly thick liquids. Continue Levofloxacin IV. TTE pending. 01/08 Patient has chronic hip pain and does not like the [place], will try tramadol. Oxygen requirement fluctuating between 3 and 8 L. N.p.o. until seen by speech therapy. Occasional cough and shortness of breath Complained of upset stomach and some nausea but no vomiting. Leukocytosis likely from high-dose steroids yesterday. 01/09 Patient is on 5 L nasal cannula sats low 90s. Shortness of breath overall improved. She has a mild occasional dry cough. Seems anxious. Poor appetite. 01/10 Patient is requiring 4 to 8 L of nasal cannula. Patient seen by pulmonology Dr. Mtz last night, no change in treatment plan. Reported CT scan showed right hemithorax with significant bronchiectasis changes as suspected in chronic reflux aspiration. Patient seems to get anxious quite easily. She has poor appetite and not eating very well. Seems to have failure to thrive. She does report that she has noticed that when she walks her dog she becomes extremely exhausted and worn out afterwards. And she says she has been declining in this regard for the past year. 01/11 Patient anxious still complains of nausea on awakening trial and sitting up with nurses. On 4 to 6 L nasal cannula. Discussed CODE STATUS with the patient and she decided to do on a DO NOT RESUSCITATE. Sore throat better with the supper call lozenges. 01/12 Oxygen requirement still fluctuating. Patient ate more of her diet today. Seems to be a little bit more energetic. 01/13 Discussed the patient with [facility] for transfer, currently no beds available. Pulmonology on-call at [facility] feels that the patient's presentation is most likely due to aspiration acute lung injury which has now progressed to ARDS. There is a potential role for penicillins according to pulmonology, started a course of Zosyn. Pulmonology said that a bronchoscopy would be low yield in this patient's workup. WBC has increased today, possibly secondary to recent systemic steroids. We will keep the patient's head at a 30 to 45 degree upright angle to decrease the risk of aspiration. Video swallow study planned for tomorrow. Added Valium as needed for anxiety. 01/14 Increasing oxygen requirement, transitioned to FNC. CT chest yesterday showed interval progression of mostly right sided infiltrates. Discussed the conversation with pulmonology at [facility], the patient declined transfer as it was unlikely pulmonology would perform a bronchoscopy for further workup. Discussed nutritional status, the patient is ok with starting TPN. PICC line ordered. Started systemic steroids with solumedrol. Cancelled swallow study to due risk of aspiration. 01/15 Continues on HHFNC with high FiO2. Oxygen requirement seems to increase during the daytime, possibly secondary to anxiety affecting respirations. Increased correction Humalog SSI to medium for hyperglycemia due to TPN and also systemic steroids. 01/16 The patient's clinical status is slightly worse than yesterday, she had a higher oxygen requirement overnight. A care conference was held at bedside with family, the patient slept through the discussion. Respiratory rates in the 30's with accessory muscle use. Physical exam Head: Atraumatic, normal inspection. Eyes: normal appearance, no scleral icterus. Neck: full ROM Respiratory: HHFNC, respiratory rate in the low 30s with accessory muscle use. Cardiovascular: Regular tachycardia, S1, S2. GI/Abdominal: soft, nontender, no guarding. Extremities: full range of motion, nontender. Neurological: CN II-XII intact, intact motor, intact sensation. Psychiatric: normal mood. Skin: warm, normal color Constitutional Vitals: Vital Signs Temp Pulse Resp BP Pulse Ox 98.5 F 98 H 35 H 161/98 95 01/16/22 12:01 01/15/22 21:40 01/16/22 12:20 01/16/22 12:01 01/16/22 12:20 Period Temp Pulse Resp BP Sys/Ortiz Pulse Ox Last 24 Hr 97.4 F-98.7 F 98-98 14-41 135-192/74-126 92-100 Intake and Output 01/15/22 01/16/22 01/16/22 21:59 05:59 13:59 Intake Total 170 170 50 Output Total 500 300 350 Balance -330 -130 -300 Weight 57.289 kg Intake & Output: Intake & Output 01/15/22 01/16/22 01/16/22 21:59 05:59 13:59 Intake Total 170 170 50 Output Total 500 300 350 Balance -330 -130 -300 Weight 57.289 kg Intake: IV 50 50 50 Zosyn 4.5 gm In Dextrose 5% in 50 50 50 Water 50 ml @ 100 mls/hr IV Q6H [facility] Rx#:[id number] Oral 120 120 Output: Void Amount 500 300 350 Other: Meal Dinner Percent of Meal Consumed 50% Feeding Ability Needs Supervision Urine Appearance Clear Sediment Clear Urine Color Light Aretha Bright Yellow Dark Yellow Urine Odor Normal Strong OBJ DATA Labs CBC & Chem 7: 01/16/22 05:25 01/16/22 05:24 Labs: Abnormal Lab Results 01/16/22 01/16/22 01/15/22 05:25 05:24 05:19 WBC 26.9 H RBC Hgb 9.8 L Hct 31.9 L MCHC 30.7 L RDW 18.5 H Plt Count 524 H Neut % (Auto) 92.6 H Lymph % (Auto) 1.8 L Lymph # (Auto) 0.49 L Swain # (Auto) 1.47 H Absolute Neutrophils 24.85 H BUN 28 H Glucose 271 H 255 H Uric Acid 1.4 L 1.9 L Phosphorus 2.4 L GGT 212 H 188 H Alkaline Phosphatase 186 H 187 H Lactate Dehydrogenase 537 H 431 H Albumin 3.0 L Albumin/Globulin Ratio 0.9 L 0.8 L 01/15/22 01/14/22 01/14/22 05:19 05:14 05:14 WBC 15.7 H 23.1 H RBC 3.36 L 3.15 L Hgb 8.9 L 8.4 L Hct 29.8 L 28.4 L MCHC 29.9 L 29.6 L RDW 18.5 H 18.8 H Plt Count 482 H 485 H Neut % (Auto) 91.8 H 84.3 H Lymph % (Auto) 3.1 L 4.2 L Lymph # (Auto) 0.49 L 0.96 L Swain # (Auto) 2.48 H Absolute Neutrophils 14.40 H 19.49 H BUN Glucose 106 H Uric Acid Phosphorus GGT Alkaline Phosphatase 187 H Lactate Dehydrogenase Albumin 2.7 L Albumin/Globulin Ratio 0.8 L Meds: Medications Hydrocodone Bitart/Acetaminophen (Hydrocodone/Apap 5/325mg Tablet) 1 tab PO Q4HP PRN; Protocol PRN Reason: Per Pain Protocol Last Admin: 01/08/22 07:14 Dose: 1 tab Documented by: Albuterol/Ipratropium (Ipratropium/Albuterol 3 Ml Ampul.Neb) 3 ml NEB Q6HP PRN PRN Reason: Shortness Of Breath Last Admin: 01/15/22 21:39 Dose: 3 ml Documented by: Benzocaine (Benzocaine 1 [place] Bottle) 1 spray TOPICAL Q4HP PRN PRN Reason: Sore Throat Last Admin: 01/10/22 16:58 Dose: 1 spray Documented by: Dextrose (Dextrose 50% 50 Ml Vial) 0 ml IV UD PRN PRN Reason: Per Sliding Scale Diagnostic Test (Pha) (Accu-Chek 1 Each Strip) 1 each FS Q6 FELIPE; Protocol Last Admin: 01/16/22 12:01 Dose: 1 each Documented by: Diphenhydramine HCl (Diphenhydramine 50 Mg/Ml Vial) 25 mg IV Q6HP PRN PRN Reason: Allergic Symptoms Last Admin: 01/15/22 20:30 Dose: 25 mg Documented by: Enoxaparin Sodium (Enoxaparin 40 Mg/0.4 Ml Syringe) 40 mg SQ DAILY [facility] Last Admin: 01/16/22 11:44 Dose: 40 mg Documented by: Fluoxetine HCl (Fluoxetine Hcl 20 Mg Capsule) 20 mg PO QDAY [facility] Last Admin: 01/16/22 07:35 Dose: 20 mg Documented by: Glucose (Dextrose 31 Gm Oral.Susp) 15 gm PO PRN PRN PRN Reason: Hypoglycemia Heparin Sodium (Porcine) (Heparin Flush 10 Units/Ml 5 Ml Syringe) 2 ml IV Q12 FEL[facility] Last Admin: 01/16/22 11:44 Dose: 2 ml Documented by: Hydrocortisone (Hydrocortisone Crm 1% Tube 30gm) 1 dose TOPICAL BID [facility] Last Admin: 01/16/22 11:45 Dose: 1 dose Documented by: Hydroxyzine HCl (Hydroxyzine 25 Mg Tablet) 50 mg PO TIDP PRN PRN Reason: anxiety Last Admin: 01/16/22 07:08 Dose: 50 mg Documented by: Piperacillin Sod/Tazobactam (Sod 4.5 gm/ Dextrose) 50 mls @ 100 mls/hr IV Q6H FEL[facility]; Protocol Stop: 01/18/22 17:59 Last Admin: 01/16/22 11:46 Dose: 100 mls/hr Documented by: Acetaminophen (Ofirmev) 650 mg in 65 mls @ 130 mls/hr IV Q6HP PRN; Protocol PRN Reason: PAIN/FEVER > 101 Last Infusion: 01/14/22 21:02 Dose: Infused Documented by: Fat Emulsion Intravenous (Intralipid 20%) 250 mls @ 25 mls/hr IV TuThSa@1600 [facility] Last Infusion: 01/15/22 01:57 Dose: Infused Documented by: Calcium Gluconate 10 meq/Magnesium Sulfate 16.24 meq/Sodium Chloride 80 meq/Potassium Chloride 80 meq/Sodium Phosphate 40 mmol/Amino Acids 2,098.8386 mls @ 65 mls/hr IV DAILY@1400 [facility] Last Admin: 01/15/22 14:15 Dose: 65 mls/hr Documented by: Insulin Human Lispro (Insulin Lispro 1 Unit/0.01 Ml Unit) 0 unit SQ Q6H [facility]; Protocol Last Admin: 01/16/22 12:19 Dose: 8 units Documented by: Lactulose (Lactulose 20 Gm/30 Ml Oral.Alma) 10 gm PO DAILYP PRN PRN Reason: Constipation Lorazepam (Lorazepam 2 Mg/Ml Vial) 0.5 mg IV Q4HP PRN PRN Reason: ANXIETY/SEDATION Last Admin: 01/15/22 17:32 Dose: 0.5 mg Documented by: Megestrol Acetate (Megestrol Acetate 400 Mg/10 Ml Udc) 400 mg PO DAILY [facility] Last Admin: 01/16/22 11:40 Dose: Not Given Documented by: Melatonin (Melatonin 3 Mg Tablet) 6 mg PO HSP PRN PRN Reason: insomnia Last Admin: 01/15/22 20:30 Dose: 6 mg Documented by: Methocarbamol (Methocarbamol 500 Mg Tablet) 500 mg PO Q8HP PRN PRN Reason: Muscle Spasm Last Admin: 01/16/22 07:08 Dose: 500 mg Documented by: Methylprednisolone Sodium Succinate (Methylprednisolone Sod Succ 125 Mg/2 Ml Vial) 62.5 mg IV Q8 [facility] Last Admin: 01/16/22 06:41 Dose: 62.5 mg Documented by: Metoclopramide HCl (Metoclopramide 10 Mg/2 Ml Vial) 10 mg IV Q6HP PRN PRN Reason: Nausea And Vomiting Ondansetron HCl (Ondansetron 4 Mg/2 Ml Vial) 4 mg IV Q4HP PRN; Protocol PRN Reason: Nausea And Vomiting Last Admin: 01/10/22 16:57 Dose: 4 mg Documented by: Pantoprazole Sodium (Pantoprazole 40 Mg Vial) 40 mg IV BIDAC FELIPE Last Admin: 01/16/22 07:08 Dose: 40 mg Documented by: Polyethylene Glycol (Polyethylene Glycol 3350 17 Gm Packet) 17 gm PO QDAY PRN PRN Reason: c Promethazine HCl (Promethazine 25 Mg/Ml Vial) 12.5 mg IV Q6HP PRN PRN Reason: Nausea And Vomiting Last Admin: 01/10/22 12:49 Dose: 12.5 mg Documented by: Senna (Sennosides 1 Tablet) 2 tab PO HSP PRN PRN Reason: Constipation Sodium Chloride (0.9 % Sodium Chloride 10 Ml Syringe) 10 ml IV Q8 [facility] Last Admin: 01/16/22 04:50 Dose: Not Given Documented by: Sodium Chloride (0.9 % Sodium Chloride 10 Ml Syringe) 10 ml IV UD PRN PRN Reason: FLUSH Last Admin: 01/16/22 06:40 Dose: 10 ml Documented by: Sodium Chloride (0.9 % Sodium Chloride 10 Ml Syringe) 10 ml IV Q12 [facility] Last Admin: 01/16/22 11:45 Dose: 10 ml Documented by: Temazepam (Temazepam 15 Mg Capsule) 15 mg PO HSP PRN PRN Reason: Insomnia Last Admin: 01/15/22 23:40 Dose: 15 mg Documented by: Throat Lozenges (Benzocaine/Menthol 1 Lozenge) 1 lozenge PO PRN PRN PRN Reason: Sore Throat Last Admin: 01/11/22 05:27 Dose: 1 lozenge Documented by: Tramadol HCl (Tramadol 50 Mg Tablet) 50 mg PO Q4-6HP PRN; Protocol PRN Reason: Pain Last Admin: 01/16/22 07:08 Dose: 50 mg Documented by: A/P Narrative A/P Narrative: A: #Acute hypoxic respiratory failure: 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 -Continue Solumedrol IV TID -Continue Protonix IV twice daily. -Ativan IV as needed. -Oxygen supplementation -TPN per pharmacy. -Correction Humalog SSI. -Keep head of bed elevated 30 to 45 degrees. -Monitor volume status with TPN. -Holding home lasix for now, poor oral intake. -PT and OT following. -dysphagia diet per ST -Speech following. -Dr. Mtz consulted > no change in treatment plan. likely underlying severe chronic lung damage on right -f/u with Pulmonary outpatient -ppx: Lovenox -CODE STATUS: DNR/DNI -Disposition: TBD Code status: DNR Time Spent With Patient Time: Total time spent is greater than 50% in coordination of care (as documented) at patient's floor/unit and/or counseling patient:
[2022-01-16] MEDS: CALCIUM GLUCONATE 10 MEQ, MAGNESIUM SULFATE 16.24 MEQ, SODIUM CHLORIDE 80 MEQ, POTASSIU... IV SCH (14:01)
[2022-01-16] MEDS: FAT EMULSION 20% 250 ML IV SCH (16:53)
[2022-01-16] MEDS: LORazepam 2 MG/ML VIAL IV PRN ×2 (19:43→23:52)
[2022-01-16] MEDS: diphenhydrAMINE 50 MG/ML VIAL IV PRN (20:03)
[2022-01-16] MEDS: MELATONIN 3 MG TABLET PO PRN (20:04)
[2022-01-17] MEDS: hydrOXYzine 25 MG TABLET PO PRN ×2 (00:42→07:19)
[2022-01-17] MEDS: IPRATROPIUM/ALBUTEROL 3 ML AMPUL.NEB NEB PRN (02:08)
[2022-01-17] MEDS: LORazepam 2 MG/ML VIAL IV PRN ×6 (05:22→22:19)
[2022-01-17] MEDS: 0.9 % SODIUM CHLORIDE 10 ML SYRINGE IV SCH ×6 (05:28→22:19)
[2022-01-17] MEDS: PIPERACILLIN SODIUM/TAZOBACTAM 4.5 GM in DEXTROSE 5% IN WATER 50 ML IV SCH (05:28)
[2022-01-17] MEDS: methylPREDNISolone SOD SUCC 125 MG/2 ML VIAL IV SCH (06:04)
[2022-01-17] MEDS: INSULIN LISPRO 1 UNIT/0.01 ML UNIT SQ SCH (06:05)
[2022-01-17] MEDS: traMADol 50 MG TABLET PO PRN (07:05)
[2022-01-17] MEDS: FLUoxetine HCL 20 MG CAPSULE PO SCH (07:19)
[2022-01-17] MEDS: PANTOPRAZOLE 40 MG VIAL IV SCH (07:19)
[2022-01-17] MEDS: MEGESTROL ACETATE 400 MG/10 ML UDC PO SCH (07:48)
[2022-01-17] MEDS ORDERED: ONDANSETRON 4 MG/2 ML VIAL IV PRN (09:26)
[2022-01-17] MEDS ORDERED: LACTOPEROXI/GLUC OXID/POT THIO 1 EACH GEL..EA. TOPICAL PRN (09:26)
[2022-01-17] MEDS ORDERED: GLYCOPYRROLATE 0.2 MG/ML VIAL IV PRN (09:26)
[2022-01-17] MEDS ORDERED: ALBUTEROL SULFATE 2.5 MG/3 ML NEBULIZER NEB PRN (09:26)
[2022-01-17] MEDS: ENOXAPARIN 40 MG/0.4 ML SYRINGE SQ SCH (10:12)
[2022-01-17] MEDS: HYDROCORTISONE CRM 1% TUBE 30GM TOPICAL SCH (10:12)
[2022-01-17] MEDS: morphine 4 MG/ML VIAL IV PRN ×3 (11:08→22:47)
--- NOTE | 2022-01-17 16:45 | Internal Med Progress Note ---
SUBJECTIVE Subjective Patient information: Note initiated : 01/17/22 at 4:43 pm Service Date, if different from initiated Date: [] Patient: Bianka Peterson a 76 y/o F admitted on 01/05/22 for Shortness of breath. Chief Complaint: [] Principal diagnosis: shortness of breath Interval history: Ms. Peterson is a 76 year old female with a history of chronic kidney disease stage III, concern for possible interstitial lung disease, recent right hip periprosthetic fracture status post ORIF in November,who has been in a [facility] nursing facility following surgery for rehab. Present presented to the emergency department for shortness of breath that started the week prior to admission. While at the SNF, the patient was started on Lasix for bilateral lower extremity edema. The patient also recently had a CT chest without contrast that showed right diffuse groundglass alveolar infiltrates involving the right upper, right middle and right lower lobe. There was a small left upper lobe infiltrate. The patient was recently seen in the emergency department for epistaxis that resolved after cauterization in the emergency department. In the emergency department on the day of hospital admission, the patient required 6 L/min oxygen supplementation. The patient had leukocytosis however was afebrile and did not have a cough. Hemoglobin is lower than 2 days prior to admission at 7.6 down from 8.9. NT pro BNP was elevated at 1512. EKG did not show any acute ischemic changes, troponin was normal. The patient does have bilateral lower extremity, right greater than left and received a dose of IV Lasix in the emergency department. Hospital medicine was consulted to admit the patient for acute hypoxic respiratory failure. I discussed the plan of admission with the patient and family members at the bedside, all questions answered to the best my ability. We discussed CODE STATUS in detail, the patient will discuss this with her family prior to making a decision. 01/06 Much better today, mycoplasma IgM positive. CTA chest was negative for PE, showed predominantly right sided diffuse infiltrates. PANTHER and Respiratory panel negative. MRSA nasal PCR negative. Continue levofloxacin IV today. Continues to require about 6 L/min oxygen supplementation. Started dysphagia diet, awaiting speech evaluating. 01/07 Does not feel as good today as yesterday, chest xray ordered. Started on stress does hydrocortisone as the patient was receiving prednisone 20 mg daily prior to admission for an unknown duration. Speech continued dysphagia diet, mildly thick liquids. Continue Levofloxacin IV. TTE pending. 01/08 Patient has chronic hip pain and does not like the [place], will try tramadol. Oxygen requirement fluctuating between 3 and 8 L. N.p.o. until seen by speech therapy. Occasional cough and shortness of breath Complained of upset stomach and some nausea but no vomiting. Leukocytosis likely from high-dose steroids yesterday. 01/09 Patient is on 5 L nasal cannula sats low 90s. Shortness of breath overall improved. She has a mild occasional dry cough. Seems anxious. Poor appetite. 01/10 Patient is requiring 4 to 8 L of nasal cannula. Patient seen by pulmonology Dr. Mtz last night, no change in treatment plan. Reported CT scan showed right hemithorax with significant bronchiectasis changes as suspected in chronic reflux aspiration. Patient seems to get anxious quite easily. She has poor appetite and not eating very well. Seems to have failure to thrive. She does report that she has noticed that when she walks her dog she becomes extremely exhausted and worn out afterwards. And she says she has been declining in this regard for the past year. 01/11 Patient anxious still complains of nausea on awakening trial and sitting up with nurses. On 4 to 6 L nasal cannula. Discussed CODE STATUS with the patient and she decided to do on a DO NOT RESUSCITATE. Sore throat better with the supper call lozenges. 01/12 Oxygen requirement still fluctuating. Patient ate more of her diet today. Seems to be a little bit more energetic. 01/13 Discussed the patient with [facility] for transfer, currently no beds available. Pulmonology on-call at [facility] feels that the patient's presentation is most likely due to aspiration acute lung injury which has now progressed to ARDS. There is a potential role for penicillins according to pulmonology, started a course of Zosyn. Pulmonology said that a bronchoscopy would be low yield in this patient's workup. WBC has increased today, possibly secondary to recent systemic steroids. We will keep the patient's head at a 30 to 45 degree upright angle to decrease the risk of aspiration. Video swallow study planned for tomorrow. Added Valium as needed for anxiety. 01/14 Increasing oxygen requirement, transitioned to FNC. CT chest yesterday showed interval progression of mostly right sided infiltrates. Discussed the conversation with pulmonology at [facility], the patient declined transfer as it was unlikely pulmonology would perform a bronchoscopy for further workup. Discussed nutritional status, the patient is ok with starting TPN. PICC line ordered. Started systemic steroids with solumedrol. Cancelled swallow study to due risk of aspiration. 01/15 Continues on HHFNC with high FiO2. Oxygen requirement seems to increase during the daytime, possibly secondary to anxiety affecting respirations. Increased correction Humalog SSI to medium for hyperglycemia due to TPN and also systemic steroids. 01/16 The patient's clinical status is slightly worse than yesterday, she had a higher oxygen requirement overnight. A care conference was held at bedside with family, the patient slept through the discussion. Respiratory rates in the 30's with accessory muscle use. 01/17 Started comfort cares at the patient's request. Transfer to med/surg for comfort cares, the patient will likely pass away in the hospital. Family present at bedside. Physical exam Head: Atraumatic, normal inspection. Eyes: normal appearance, no scleral icterus. Neck: full ROM Respiratory: HHFNC, accessory muscle use. Cardiovascular: Regular tachycardia, S1, S2. GI/Abdominal: soft, nontender, no guarding. Extremities: full range of motion, nontender. Neurological: CN II-XII intact, intact motor, intact sensation. Psychiatric: normal mood. Skin: warm, normal color Constitutional Vitals: Vital Signs Temp Pulse Resp BP Pulse Ox 97.3 F 98 H 20 146/88 87 L 01/17/22 08:01 01/17/22 05:48 01/17/22 08:10 01/17/22 08:01 01/17/22 12:00 Period Temp Pulse Resp BP Sys/Ortiz Pulse Ox Last 24 Hr 97.2 F-99.6 F 98 17-37 133-181/81-106 87-100 Intake and Output 01/17/22 01/17/22 01/17/22 05:59 13:59 21:59 Intake Total 450 1284 Output Total 300 150 Balance 150 1134 Intake & Output: Intake & Output 01/17/22 01/17/22 01/17/22 05:59 13:59 21:59 Intake Total 450 1284 Output Total 300 150 Balance 150 1134 Intake: IV 300 1284 Calcium Gluconate 10 Meq 1234 Magnesium Sulfate 16.24 Meq Sodium Chloride 80 Meq Potassium Chloride 80 Meq Sodium Phosphate 40 Mmol In Clinimix 5%-20% Solution 2,000 ml @ 65 mls/hr IV DAILY@1400 [facility] Rx#:[id number] Intralipid 20% 250 ml @ 25 mls/ 250 hr IV TuThSa@1600 [facility] Rx#: [id number] Zosyn 4.5 gm In Dextrose 5% in 50 50 Water 50 ml @ 100 mls/hr IV Q6H [facility] Rx#:[id number] Oral 150 Output: Void Amount 300 150 Other: Urine Appearance Clear Clear Urine Color Dark Yellow Bright Yellow OBJ DATA Labs CBC & Chem 7: 01/16/22 05:25 01/17/22 05:19 Labs: Abnormal Lab Results 01/16/22 01/16/22 01/15/22 05:25 05:24 05:19 WBC 26.9 H RBC Hgb 9.8 L Hct 31.9 L MCHC 30.7 L RDW 18.5 H Plt Count 524 H Neut % (Auto) 92.6 H Lymph % (Auto) 1.8 L Lymph # (Auto) 0.49 L [place] # (Auto) 1.47 H Absolute Neutrophils 24.85 H BUN 28 H Glucose 271 H 255 H Uric Acid 1.4 L 1.9 L Phosphorus 2.4 L GGT 212 H 188 H Alkaline Phosphatase 186 H 187 H Lactate Dehydrogenase 537 H 431 H Albumin 3.0 L Albumin/Globulin Ratio 0.9 L 0.8 L 01/15/22 05:19 WBC 15.7 H RBC 3.36 L Hgb 8.9 L Hct 29.8 L MCHC 29.9 L RDW 18.5 H Plt Count 482 H Neut % (Auto) 91.8 H Lymph % (Auto) 3.1 L Lymph # (Auto) 0.49 L [place] # (Auto) Absolute Neutrophils 14.40 H BUN Glucose Uric Acid Phosphorus GGT Alkaline Phosphatase Lactate Dehydrogenase Albumin Albumin/Globulin Ratio Meds: Medications Albuterol Sulfate (Albuterol Sulfate 2.5 Mg/3 Ml Nebulizer) 2.5 mg NEB Q2HP PRN PRN Reason: Shortness Of Breath Glucose Oxid/Lactoperoxid/Muramidas (Lactoperoxi/Gluc Oxid/Pot Thio 1 Each Gel..Ea.) 1 each TOPICAL PRN PRN PRN Reason: Dry Mouth Glycopyrrolate (Glycopyrrolate 0.2 Mg/Ml Vial) 0.2 mg IV Q4HP PRN PRN Reason: decrease airway secretions Lorazepam (Lorazepam 2 Mg/Ml Vial) 0 mg IV Q1HP PRN; Protocol PRN Reason: ANXIETY/SEDATION Last Admin: 01/17/22 12:03 Dose: 2 mg Documented by: Morphine Sulfate (Morphine 4 Mg/Ml Vial) 2 - 6 mg IV Q1HP PRN; Protocol PRN Reason: Per Pain Protocol Last Admin: 01/17/22 14:42 Dose: 4 mg Documented by: Ondansetron HCl (Ondansetron 4 Mg/2 Ml Vial) 4 mg IV Q4HP PRN; Protocol PRN Reason: Nausea And Vomiting Sodium Chloride (0.9 % Sodium Chloride 10 Ml Syringe) 10 ml IV Q8 FELIPE A/P Narrative A/P Narrative: A: # End of life care #Acute hypoxic respiratory failure: 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 Code status: DNR Time Spent With Patient Time: Total time spent is greater than 50% in coordination of care (as documented) at patient's floor/unit and/or counseling patient:
--- NOTE | 2022-01-18 08:09 | Death Note ---
Discharge Sum: Prov Provider Patient information: Note initiated : 01/18/22 at 8:09 am Service Date, if different from initiated Date: [] Patient: Bianka Peterson 76 y/o F admitted on 01/05/22 for Shortness of breath. Chief Complaint: [] Primary care physician: LEONARDO Andrea Consults: 01/05/22 Consult to Physician [CONS] Stat Comment: Consulting Provider: Kit Pearl Reason For Exam: Physician to Consult 01/09/22 10:39 Consult to Physician [CONS] Routine Comment: Consulting Provider: Bartolo Mtz Reason For Exam: Physician to Consult Discharge Sum: Summary Date and Time Date of admission: 01/05/22 19:27 Summary Details: Ms. Peterson is a 76 year old female with a history of chronic kidney disease stage III, concern for possible interstitial lung disease, recent right hip periprosthetic fracture status post ORIF in November,who has been in a [facility] facility following surgery for rehab. Present presented to the emergency department for shortness of breath that started the week prior to admission. While at the SNF, the patient was started on Lasix for bilateral lower extremity edema. The patient also recently had a CT chest without contrast that showed right diffuse groundglass alveolar infiltrates involving the right upper, right middle and right lower lobe. There was a small left upper lobe infiltrate. The patient was recently seen in the emergency department for epistaxis that resolved after cauterization in the emergency department. In the emergency department on the day of hospital admission, the patient required 6 L/min oxygen supplementation. The patient had leukocytosis however was afebrile and did not have a cough. Hemoglobin is lower than 2 days prior to admission at 7.6 down from 8.9. NT pro BNP was elevated at 1512. EKG did not show any acute ischemic changes, troponin was normal. The patient does have bilateral lower extremity, right greater than left and received a dose of IV Lasix in the emergency department. Hospital medicine was consulted to admit the patient for acute hypoxic respiratory failure. I discussed the plan of admission with the patient and family members at the bedside, all questions answered to the best my ability. We discussed CODE STATUS in detail, the patient will discuss this with her family prior to making a decision. 01/06 Much better today, mycoplasma IgM positive. CTA chest was negative for PE, showed predominantly right sided diffuse infiltrates. PANTHER and Respiratory panel negative. MRSA nasal PCR negative. Continue levofloxacin IV today. Continues to require about 6 L/min oxygen supplementation. Started dysphagia diet, awaiting speech evaluating. 01/07 Does not feel as good today as yesterday, chest xray ordered. Started on stress does hydrocortisone as the patient was receiving prednisone 20 mg daily prior to admission for an unknown duration. Speech continued dysphagia diet, mildly thick liquids. Continue Levofloxacin IV. TTE pending. 01/08 Patient has chronic hip pain and does not like the [place], will try tramadol. Oxygen requirement fluctuating between 3 and 8 L. N.p.o. until seen by speech therapy. Occasional cough and shortness of breath Complained of upset stomach and some nausea but no vomiting. Leukocytosis likely from high-dose steroids yesterday. 01/09 Patient is on 5 L nasal cannula sats low 90s. Shortness of breath overall improved. She has a mild occasional dry cough. Seems anxious. Poor appetite. 01/10 Patient is requiring 4 to 8 L of nasal cannula. Patient seen by pulmonology Dr. Mtz last night, no change in treatment plan. Reported CT scan showed right hemithorax with significant bronchiectasis changes as suspected in chronic reflux aspiration. Patient seems to get anxious quite easily. She has poor appetite and not eating very well. Seems to have failure to thrive. She does report that she has noticed that when she walks her dog she becomes extremely exhausted and worn out afterwards. And she says she has been declining in this regard for the past year. 01/11 Patient anxious still complains of nausea on awakening trial and sitting up with nurses. On 4 to 6 L nasal cannula. Discussed CODE STATUS with the patient and she decided to do on a DO NOT RESUSCITATE. Sore throat better with the supper call lozenges. 01/12 Oxygen requirement still fluctuating. Patient ate more of her diet today. Seems to be a little bit more energetic. 01/13 Discussed the patient with [facility] for transfer, currently no beds available. Pulmonology on-call at [facility] feels that the patient's presentation is most likely due to aspiration acute lung injury which has now progressed to ARDS. There is a potential role for penicillins according to pulmonology, started a course of Zosyn. Pulmonology said that a bronchoscopy would be low yield in this patient's workup. WBC has increased today, possibly secondary to recent systemic steroids. We will keep the patient's head at a 30 to 45 degree upright angle to decrease the risk of aspiration. Video swallow study planned for tomorrow. Added Valium as needed for anxiety. 01/14 Increasing oxygen requirement, transitioned to HHFNC. CT chest yesterday showed interval progression of mostly right sided infiltrates. Discussed the conversation with pulmonology at [facility], the patient declined transfer as it was unlikely pulmonology would perform a bronchoscopy for further workup. Discussed nutritional status, the patient is ok with starting TPN. PICC line ordered. Started systemic steroids with solumedrol. Cancelled swallow study to due risk of aspiration. 01/15 Continues on HHFNC with high FiO2. Oxygen requirement seems to increase during the daytime, possibly secondary to anxiety affecting respirations. Increased correction Humalog SSI to medium for hyperglycemia due to TPN and also systemic steroids. 01/16 The patient's clinical status is slightly worse than yesterday, she had a higher oxygen requirement overnight. A care conference was held at bedside with family, the patient slept through the discussion. Respiratory rates in the 30's with accessory muscle use. 01/17 Started comfort cares at the patient's request. Transfer to med/surg for comfort cares, the patient will likely pass away in the hospital. Family present at bedside. The patient comfortably with family at the bedside at about midnight. Additional Data Attending physician: Kit Pearl MD
[2022-01-20 22:52] LABS: DNA AB(DS) Crithidia, IFA NEGATIVE (NEGATIVE); Rhuematoid Factor <14 IU/mL (<14); SM Antibody <1.0 NEG AI (<1.0 NEGATIVE); SM/RNP Antibody <1.0 NEG AI (<1.0 NEGATIVE); SS-A <1.0 NEG AI (<1.0 NEGATIVE); SS-B <1.0 NEG AI (<1.0 NEGATIVE); Scl-70 <1.0 NEG AI (<1.0 NEGATIVE)
== END 2022-01-17 23:30 | disposition expired | DRG 177 ==
LOC: ED 12:54 → ICU 19:27 → UNDODISIN 01-06 14:27 → MEDSUR 01-17 09:42
PROVIDERS: ADMIT Internal Medicine; ATTEND Internal Medicine